=== PATIENT | female | born 1985 | race Caucasian/White ===

== ENCOUNTER 2024-05-25 23:28 | Outpatient (BNV) | payer MEDICAID, SELFPAY | END 2024-06-18 11:35 | PROVIDERS: Admitting Provider Clinical Nurse Specialist Psychiatric/Mental Health, Adult; Visit Provider Internal Medicine | DX: F31.9 Bipolar disorder, unspecified (principal); F19.90 Other psychoactive substance use, unspecified, uncomplicated | CPT/HCPCS: 93010 ==

== ENCOUNTER 2024-05-25 23:28 | Inpatient (IN) | payer OTHER, SELFPAY ==
--- OUTSIDE RECORDS SUMMARY | 2024-05-25 23:31 | XMS_ITS | Encounter Summary ---
Author Organization [employer] Address [address] [place] [address] [address] [place] [address] Care Team Providers Care Electron Microprobe Operator Name Role Phone Garry Graham MD Primary Care Provider Charis Alfonso MA Unavailable Unavailab Deborah Montenegro NP Unavailable [phone] Kristi Saxena MA Unavailable Unava ilable Reason for Visit * Reason Comments CHW - Outreach CHW outreach: pap f/ u booked for 07/03/24. Encounter Details Date Type Department Care Team (Late st Contact Info) Description 05/23/2024 Patient Outreach [facility] Case Management [address] [place] [phone] César Quinonez CHW CHW - Outreach (CHW outreach: pap f/u booked for 07/03/24.) Social History Tobacco Use Types Packs/Day Years Used Date Smoking Tobacco: Former Cigarettes Smokeless Tobacco: Former Alcohol Answer Date Recorded How often do you have a drink containing alcohol ? 0 05/23/2024 How many drinks containing a lcohol do you have on a typical day when you are drinking? 0 05/23/2024 How often do you have six or more drinks on one occasion? 0 05/23/2024 Depression Answer Date Recorded Patient Health Questionnaire-9 Score 16 05/23/2024 Patient Health Questionnaire-9 Score 16 05/23/2024 Last PHQ-9: Questionnaire Data Not on file 0 05/23/2024 Housing Stability Answer Date Recorded What is your housing situation today? I have gabrielle gardner 05/23/[address] you li ve. Do you have problems with any of the following? Not on file 05/23/2024 Food Insecurity Answer Date Recorded Within the past 12 months, y ou worried that your food would run out before you got money to buy more: Often true 05/23/2024 Within the past 12 months,th e food you bought just didn't last and you didn't have enough money to get more: Often true 03/2025 Transportation Answer Date Recorded In the past 12 months, has l ack of transportation kept you from medical appts, meetings, work or from getting things needed for daily living? No 05/23/2024 Utilities Answer Date Recorded In the past 12 months, has t he electric, gas, oil or water company threatened to shut off services in your home? No 05/23/2024 Depression Answer Date Recorded Patient Health Questionnaire-2 Score 6 05/23/2024 Internet Access Answer Date Recorded Internet Access Q1 Yes 05/23/2024 Internet Access Q2 Not on file 05/23/2024 Comments Unknown Sex and Gender Information Value Date Recorded Sex Assigned at Female 10/03/2023 10:22 AM EDT Legal Sex Female 6:50 PM EDT Gender Identity Female 07/22/2023 6:50 PM EDT Sexual Orientation Straight 07/22/2023 6: 50 PM EDT documented as of this encounter Progress Notes * IAN Hayes - 05/23/2024 1:27 PM EST CHW outreach: pap f/u booked for 07/03/24. documented in this encounter Plan of Treatment Upcoming Encounters Date Type Department Care Team (Late st Contact Info) Description 07/03/2024 8:40 AM EDT Procedure Visit [address] [phone] Cheryl Weaver WHNP [address] [place] [phone] documented as of this encounter Visit Diagnoses Not on filedocumented in this encounter Additional Health Concerns Assessment Noted Time PHQ-9 Depression Total Score: 16 025 8:14 AM EST documented as of this encounter Care Teams Electron Microprobe Operator Relationship Specialty Start Date End Date Garry Graham MD [address] [place] [phone] PCP - General Family Medicine 09/22/17 Charis Alfonso MA 2nd Contact Psychiatry 12/06/23 Deborah Lagos NP Nurse Practitioner Psychiatry 12/06/23 Kristi Saxena MA 3rd Contact Psychiatry 12/06/23 documented as of this encounter
--- OUTSIDE RECORDS SUMMARY | 2024-05-25 23:31 | XMS_ITS | Encounter Summary ---
Author Organization [employer] Address [address] [place] [address] [address] [place] [address] Care Team Providers Care Information Resource Consultant Name Role Phone Garry Graham MD Primary Care Provider Charis Alfonso MA Unavailable Unavailab Deborah Montenegro NP Unavailable [phone] Kristi Saxena MA Unavailable Unava ilable Encounter Details Date Type Department Care Team (Late st Contact Info) Description 05/23/2024 3:00 PM [facility] [place] [address] [place] [phone] Arleen Garcia CHW Community health education Social History Tobacco Use Types Packs/Day Years [...] of this encounter Progress Notes * IAN Salcido - 05/23/2024 3:00 PM EST Contacted pt to assist with SDOH needs, pt states a need for assistance to fill out SSI disability forms on noon. documented in this encounter Plan of Treatment Upcoming Encounters Date Type Department Care Team (Late st Contact Info) Description 07/03/2024 8:40 AM EDT Procedure Visit [address] [phone] Cheryl Weaver WHNP [address] [place] [phone] documented as of this encounter Visit Diagnoses Diagnosis Community health education Other specified counseling documented in this encounter Additional Health Concerns Assessment Noted Time PHQ-9 Depression Total Score: 16 025 8:14 AM EST documented as of this encounter Care Teams Information Resource Consultant Relationship Specialty Start Date End Date Grary Graham MD [address] [place] [phone] PCP - General Family Medicine 09/22/17 Charis Alfonso MA 2nd Contact Psychiatry 12/06/23 Deborah Lagos NP Nurse Practitioner Psychiatry 12/06/23 Kristi Saxena MA 3rd Contact Psychiatry 12/06/23 documented as of this encounter
--- OUTSIDE RECORDS SUMMARY | 2024-05-25 23:31 | XMS_ITS | Encounter Summary ---
Author Organization [employer] Address [address] [place] [address] [address] [place] [address] Care Team Providers Care Nutrition Worker Name Role Phone Garry Graham MD Primary Care Provider Charis Alfonso MA Unavailable Unavailab Deborah Montenegro NP Unavailable [phone] Kristi Saxena MA Unavailable Unava ilable Encounter Details Date Type Department Care Team (Late st Contact Info) Description 10/30/2023 Orders Only [facility] Case Management [address] [place] [phone] Kieran Gilliam CHW Social History Tobacco Use Types Packs/Day Years Used Date Smoking Tobacco: Never Assessed Comments Unknown Sex and Gender Information Value Date Recorded Sex Assigned at Female 10/03/2023 10:22 AM EDT Legal Sex Female 6:50 PM EDT Gender Identity Female 07/22/2023 6:50 PM EDT Sexual Orientation Straight 07/22/2023 6: 50 PM EDT documented as of this encounter Plan of Treatment Upcoming Encounters Date Type Department Care Team (Late st Contact Info) Description 07/03/2024 8:40 AM EDT Procedure Visit [facility] Family Med [address] [place] [phone] Cheryl Weaver WHNP [address] [place] [phone] documented as of this encounter Procedures Procedure Name Priority Date/Time Associated Diagnosis Comments HM PAP/HPV Routine 08/16/2016 12:00 AM EDT documented in this encounter Results * HM PAP/HPV (08/16/2016 12:00 AM EDT) us Historical Provider HEALTH MAINTENANCE Final Result documented in this encounter Visit Diagnoses Not on filedocumented in this encounter Care Teams Nutrition Worker Relationship Specialty Start Date End Date Garry Graham MD [address] [place] [phone] PCP - General Family Medicine 09/22/17 Charis Alfonso MA 2nd Contact Psychiatry 12/06/23 Deborah Lagos NP Nurse Practitioner Psychiatry 12/06/23 Kristi Saxena MA 3rd Contact Psychiatry 12/06/23 documented as of this encounter
--- OUTSIDE RECORDS SUMMARY | 2024-05-25 23:31 | XMS_ITS | Encounter Summary ---
Author Organization [employer] Address [address] [place] [address] [address] [place] [address] Care Team Providers Care Core Layer Machine Operator Name Role Phone Garry Graham MD Primary Care Provider Charis Alfonso MA Unavailable Unavailab Deborah Montenegro NP Unavailable [phone] Kristi Saxena MA Unavailable Unava ilable Reason for Visit * Reason Onset Date Comments Med Refill 02/28/2024 Pt is requesting the Gabapentin. Encounter Details Date Type Department Care Team (Late st Contact Info) Description 02/28/[address] [phone] Garry Graham MD [address] [place] [phone] Med Refill (Pt is requesting the Gabapentin.) Social History Tobacco Use Types Packs/Day Years Used Date Smoking Tobacco: Never Assessed Comments Unknown Sex and Gender Information Value Date Recorded Sex Assigned at Female 10/03/2023 10:22 AM EDT Legal Sex Female 6:50 PM EDT Gender Identity Female 07/22/2023 6:50 PM EDT Sexual Orientation Straight 07/22/2023 6: 50 PM EDT documented as of this encounter Miscellaneous Notes * Telephone Encounter - Michael Cardona - 02/28/2024 3:38 PM EST Pt is requesting the Gabapentin. documented in this encounter Plan of Treatment Upcoming Encounters Date Type Department Care Team (Late st Contact Info) Description 07/03/2024 8:40 AM EDT Procedure Visit [address] [phone] Cheryl Weaver WHNP [address] [place] [phone] documented as of this encounter Visit Diagnoses Not on filedocumented in this encounter Care Teams Core Layer Machine Operator Relationship Specialty Start Date End Date Garry Graham MD [address] [place] [phone] PCP - General Family Medicine 09/22/17 Charis Alfonso MA 2nd Contact Psychiatry 12/06/23 Deborah Lagos NP Nurse Practitioner Psychiatry 12/06/23 Kristi Saxena MA 3rd Contact Psychiatry 12/06/23 documented as of this encounter
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
--- OUTSIDE RECORDS SUMMARY | 2024-05-25 23:31 | XMS_ITS | Encounter Summary ---
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 Negative Negative mg/dL LAB URINALYSIS - AUTOMATED METHOD 05/25/2024 6:41 PM [facility] Urobilinogen, Urine 0.2 0.2 - 1.0 mg/dL LAB URINALYSIS - AUTOMATED METHOD 05/25/2024 6:41 PM EST [facility] Bilirubin, Urine Negative Negative LAB URINALYSIS - AUTOMATED METHOD 05/25/2024 6:41 PM EST [facility] Blood, Urine Negative Negative LAB URINALYSIS - AUTOMATED METHOD 05/25/2024 6:41 PM [facility] Urine Urine specimen obtained by clean catch procedure / Unknown Non-blood Collection / Unknown 05/25/2024 6:34 PM EST 05/25/2024 6:35 PM EST us Jessi Hung DO LAB URINE ORDERABLES Wen l Result Performing Organization Address City/State/[facility] Co de Phone Number [facility] [address] [place] [address], [place] [phone] * POC , urine manually resulted (05/25/2024 5:43 PM EST) HCG, Ur POC Negative Negative POC hCG Int QC Pass? Yes Yes Urine Urine specimen obtained by clean catch procedure / Unknown 05/25/2024 5:43 PM EST Jessi Hung DO POINT OF CARE TEST ENTER/ EDIT ORDERABLES Final Result * CBC auto differential (05/25/2024 5:34 PM EST) WBC 6.4 4.8 - 10.8 K/[facility] LAB HEMETOLOGY METHOD 05/25/2024 6:03 PM EST [facility] RBC 4.50 3.80 - 4.80 M/mcL LAB HEMETOLOGY METHOD 05/25/2024 6:03 PM [facility] Hemoglobin 13.9 11.5 - 16.0 g/dL LAB HEMETOLOGY METHOD 05/25/2024 6:03 PM EST [facility] Hematocrit 42.7 35.0 - 47.0 % LAB HEMETOLOGY METHOD 05/25/2024 6:03 PM [facility] MCV 94.1 79.0 - 98.0 FL LAB HEMETOLOGY METHOD 05/25/2024 6:03 PM [facility] MCH 30.6 27.0 - 32.0 pcg LAB HEMETOLOGY METHOD 05/25/2024 6:03 PM [facility] MCHC 32.6 32.0 - 37.0 g/dL LAB HEMETOLOGY METHOD 05/25/2024 6:03 PM [facility] RDW 12.9 11.0 - 15.0 % LAB HEMETOLOGY METHOD 05/25/2024 6:03 PM [facility] Platelets 348 130 - 400 K/mcL LAB HEMETOLOGY METHOD 05/25/2024 6:03 PM [facility] MPV 10.1 7.0 - 11.0 FL LAB HEMETOLOGY METHOD 05/25/2024 6:03 PM [facility] NRBC 0.0 <1.0 % LAB HEMETOLOGY METHOD 05/25/2024 6:03 PM [facility] NRBC Absolute 0.00 <0.10 K/mcL LAB HEMETOLOGY METHOD 05/25/2024 6:03 PM [facility] Neutrophils Relative 68.8 % LAB HEMETOLOGY METHOD 05/25/2024 6:03 PM [facility] Lymphocytes Relative 23.7 % LAB HEMETOLOGY METHOD 05/25/2024 6:03 PM [facility] Monocytes Relative 4.4 % LAB HEMETOLOGY METHOD 05/25/2024 6:03 PM [facility] Eosinophils Relative 1.7 % LAB HEMETOLOGY METHOD 05/25/2024 6:03 PM [facility] Basophils Relative 1.1 % LAB HEMETOLOGY METHOD 05/25/2024 6:03 PM EST [facility] Immature Granulocytes Relative 0.3 % LAB HEMETOLOGY METHOD 05/25/2024 6:03 PM [facility] Neutrophils Absolute 4.39 1.50 - 7.00 K/mcL LAB HEMETOLOGY METHOD 05/25/2024 6:03 PM [facility] Lymphocytes Absolute 1.51 1.00 - 5.00 K/mcL LAB HEMETOLOGY METHOD 05/25/2024 6:03 PM [facility] Monocytes Absolute 0.28 0.20 - 1.00 K/mcL LAB HEMETOLOGY METHOD 05/25/2024 6:03 PM [facility] Eosinophils Absolute 0.11 0.00 - 0.50 K/mcL LAB HEMETOLOGY METHOD 05/25/2024 6:03 PM [facility] Basophils Absolute 0.07 0.00 - 0.20 K/mcL LAB HEMETOLOGY METHOD 05/25/2024 6:03 PM [facility] Immature Granulocytes Absolute 0.02 0.00 - 0.03 K/mcL LAB HEMETOLOGY METHOD 05/25/2024 6:03 PM [facility] Blood Venous blood specimen / Unknown Venipuncture / Unknown 05/25/2024 5:34 PM EST 05/25/2024 5:48 PM EST us Jessi Hung DO LAB BLOOD ORDERABLES Wen l Result [facility] [address] [place] [address], * Salicylate level (05/25/2024 5:34 PM EST) Salicylate Level 2.1 2.0 - 29.0 mg/dL LAB CHEMISTRY METHOD 05/25/2024 6:14 PM EST [facility] Blood Venous blood specimen / Unknown Venipuncture / Unknown 05/25/2024 5:34 PM EST 05/25/2024 5:48 PM EST us Jessi Hung LAB BLOOD ORDERABLES Wen l Result Performing Organization Address City/[facility]/ZIP Co de Phone Number [facility] [address] [place] [address], [place] [phone] * (ABNORMAL) Acetaminophen level (05/25/2024 5:34 PM EST) Acetaminophen Level <2.0(L) 10.0 - 30.0 mcg/mL LAB CHEMISTRY METHOD 05/25/2024 6:16 PM EST [facility] Blood Venous blood specimen / Unknown Venipuncture / Unknown 05/25/2024 5:34 PM EST 05/25/2024 5:48 PM EST Jessi Hung LAB BLOOD ORDERABLES Wen l Result Performing Organization Address [facility]/ZIP Co de Phone Number [facility] [address] [place] [address], [place] [phone] * Ethanol (05/25/2024 5:34 PM EST) Ethanol Level 5 0 - 10 mg/dL LAB CHEMISTRY METHOD 05/25/2024 6:14 PM EST [facility] Blood Venous blood specimen / Unknown Venipuncture / Unknown 05/25/2024 5:34 PM EST 05/25/2024 5:48 PM EST Jessi Hung LAB BLOOD ORDERABLES Wen l Result Performing Organization Address City/[facility]/ZIP Co de Phone Number [facility] [address] [place] [address], [place] [phone] * (ABNORMAL) Comprehensive metabolic panel (05/25/2024 5:34 PM EST) Sodium 136 133 - 145 mmol/L LAB CHEMISTRY METHOD 05/25/2024 6:16 PM [facility] Potassium 4.3 3.5 - 5.5 mmol/L LAB CHEMISTRY METHOD 05/25/2024 6:16 PM [facility] Chloride 108 96 - 110 mmol/L LAB CHEMISTRY METHOD 05/25/2024 6:16 PM [facility] CO2 26 21 - 32 mmol/L LAB CHEMISTRY METHOD 05/25/2024 6:16 PM [facility] Anion Gap 2(L) 3 - 11 LAB CHEMISTRY METHOD 05/25/2024 6:16 PM [facility] Glucose 105(H) 70 - 100 mg/dL LAB CHEMISTRY METHOD 05/25/2024 6:16 PM [facility] BUN 7 5 - 25 mg/dL LAB CHEMISTRY METHOD 05/25/2024 6:16 PM [facility] Creatinine 0.70 0.50 - 1.10 mg/dL LAB CHEMISTRY METHOD 05/25/2024 6:16 PM [facility] eGFR 113 >=60 mL/min/1. 73m2 LAB CHEMISTRY METHOD 05/25/2024 6:16 PM [facility] Comment:Calculation based on the??Chronic Kidney Disease Epidemiology Collaboration (CKD-EPI) equation refit??without adjustment for race. BUN/Creatinine Ratio 10.0 LAB CHEMISTRY METHOD 05/25/2024 6:16 PM [facility] Calcium 9.7 8.5 - 10.5 mg/dL LAB CHEMISTRY METHOD 05/25/2024 6:16 PM [facility] AST (SGOT) 15 10 - 42 unit/L LAB CHEMISTRY METHOD 05/25/2024 6:16 PM [facility] ALT (SGPT) 13 10 - 60 unit/L LAB CHEMISTRY METHOD 05/25/2024 6:16 PM EST [facility] Alkaline Phosphatase 69 42 - 121 unit/L LAB CHEMISTRY METHOD 05/25/2024 6:16 PM EST [facility] Total Protein 7.7 6.0 - 8.0 g/dL LAB CHEMISTRY METHOD 05/25/2024 6:16 PM [facility] Albumin 4.3 3.2 - 5.0 g/dL LAB CHEMISTRY METHOD 05/25/2024 6:16 PM EST [facility] Total Bilirubin 0.4 0.0 - 1.4 mg/dL LAB CHEMISTRY METHOD 05/25/2024 6:16 PM EST [facility] Blood Venous blood specimen / Unknown Venipuncture / Unknown 05/25/2024 5:34 PM EST 05/25/2024 5:48 PM EST us Jessi Hung DO LAB BLOOD ORDERABLES Wen l Result Performing Organization Address [facility]/ZIP Co de Phone Number [facility] [address] [place] [address], [place] [phone] * (ABNORMAL) Methadone, urine (05/25/2024 5:33 PM EST) [facility] Methadone Screen, Urine Positive (A) Negative LAB CHEMISTRY METHOD 05/25/2024 6:15 PM EST [facility] Comment: Assay cutoff 300 ng/mL Semi-quantitative assay for screening purposes only. Unconfirmed screening result should not be used for non-medical purposes. *ALTERNATE METHOD CONFIRMATION DONE UPON REQUEST ONLY* Urine Urine specimen obtained by clean catch procedure / Unknown Non-blood Collection / Unknown 05/25/2024 5:33 PM EST 05/25/2024 5:48 PM EST Jessi Vikas Carlo Hung DO LAB URINE ORDERABLES Wen l Result Performing Organization Address [facility]/ZIP Co de Phone Number [facility] [address] [place] [address], [place] [phone] * Phencyclidine, urine (05/25/2024 5:33 PM EST) PCP Scrn, Ur Negative Negative LAB CHEMISTRY METHOD 05/25/2024 6:15 PM EST [facility] Comment: Assay cutoff 25 ng/mL Semi-quantitative assay for screening purposes only. Unconfirmed screening result should not be used for non-medical purposes. *ALTERNATE METHOD CONFIRMATION DONE UPON REQUEST ONLY* Urine Urine specimen obtained by clean catch procedure / Unknown Non-blood Collection / Unknown 05/25/2024 5:33 PM EST 05/25/2024 5:48 PM EST Jessi Algisys Carlo Loudeye LAB URINE ORDERABLES Wen l Result Performing Organization Address [facility]/ZIP Co de Phone Number [facility] [address] [place] [address], [place] [phone] * Buprenorphine screen, urine (05/25/2024 5:33 PM EST) Pathologist [facility] Buprenorphine Screen Urine Negative Negative LAB CHEMISTRY METHOD 05/25/2024 6:15 PM EST [facility] Urine Urine specimen obtained by clean catch procedure / Unknown Non-blood Collection / Unknown 05/25/2024 5:33 PM EST 05/25/2024 5:48 PM EST Narrative [facility] - 05/25/2024 6:15 PM EST Assay cutoff 5 ng/mL Semi-quantitative assay for screening purposes only. Unconfirmed screening result should not be used for non-medical purposes. *ALTERNATE METHOD CONFIRMATION DONE UPON REQUEST ONLY* [place] Trevor Carlo [employer] LAB URINE ORDERABLES Wen l Result Performing Organization Address City/[facility]/ZIP Co de Phone Number [facility] [address] [place] [address], [place] [phone] * (ABNORMAL) Drug abuse screen 8a panel, urine (05/25/2024 5:33 PM EST) Amphetamine Screen, Ur Negative Negative LAB CHEMISTRY METHOD 5 6:24 PM [facility] Comment:Certain OTC medicati ons containing ephedrine, phenylephrine, pseudoephedrine and phenylpropanolamine can cause false positive results. Barbiturate Screen, Ur Negative Negative LAB CHEMISTRY METHOD 5 6:24 PM [facility] Benzodiazepine Screen, Ur Negative Negative LAB CHEMISTRY METHOD 5 6:24 PM [facility] Cocaine Screen, Ur Positive(A ) Negative LAB CHEMISTRY METHOD 5 6:24 PM [facility] Opiate Screen, Ur Negative Negative LAB CHEMISTRY METHOD 5 6:24 PM [facility] Cannabinoid (THC) Screen, Ur Negative Negative LAB CHEMISTRY METHOD 5 6:24 PM [facility] Comment:Specimens from patie nts taking pantoprazole sodium (Protonix) have been shown to produce false positive results. Oxycodone Screen, Ur Negative Negative LAB CHEMISTRY METHOD 5 6:24 PM [facility] Fentanyl, Ur Positive(A ) Negative LAB CHEMISTRY METHOD 5 6:24 PM [facility] Urine Urine specimen obtained by clean catch procedure / Unknown Non-blood Collection / Unknown 05/25/2024 5:33 PM EST 05/25/2024 5:48 PM EST [facility] - 05/25/2024 6:24 PM EST Assay cutoffs: Amphetamines ? 1000 ng/mL Barbiturates ?200 ng/mL Benzodiazepines ?? 200 ng/mL Cocaine ? 300 ng/mL Fentanyl ?1 ng/mL Opiates ? 300 ng/mL Oxycodone ? 100 ng/mL THC ?50 ng/mL Semi-quantitative assay for screening purposes only. Unconfirmed screening result should not be used for non-medical purposes. *ALTERNATE METHOD CONFIRMATION DONE UPON REQUEST ONLY* Jessi Hung DO LAB URINE ORDERABLES Wen hayder Result [facility] [address] [place] [address], documented in this encounter Visit Diagnoses Diagnosis Bipolar affective disorder, remission status unspecified (CMS/HCC)- Primary documented in this encounter Administered Medications Active Administered Medications - up to 3 most recent administrations Medication Order MAR Action Action Date Dose Rate Site clonazePAM (KlonoPIN) tablet 1 mg 1 mg, oral, 3 times daily, First dose on Tue05/25/24 at 2100, HAZARDOUS Drug Precautions - Low Risk (Category A/NIOSH Group 3) Reproductive Risk Only: - Single pair of ASTM standard [id number] certified chemotherapy gloves - Eye protection (goggles or face shield) required only with a potential for facial contact (i.e. concern for spitting or vomiting of the dose during or after administration) - Staff at reproductive risk (actively trying to conceive, or may be become , and ): chemo certified gown and an N95 respirator required when crushing meds (crushing of tabs allowed only in closed pouches) or opening of capsules only for allowable dosage forms Given 05/25/2024 8:09 PM EST 1 mg doxycycline (MONODOX) capsule 100 mg 100 mg, oral, Every 12 hours scheduled, First dose on Tue05/25/24 at 2100, For 7 days, Take with at least 8 ounces (large glass) of water, do not lie down for 30 minutes after. Administer 2 hours before or after multivitamins, antacids, or other products containing polyvalent cations (i.e., calcium, iron, magnesium, selenium, zinc)., Indication: Skin/Soft Tissue Given 05/25/2024 8:10 PM EST 100 mg methadone (DOLOPHINE) tablet 2.5 mg 2.5 mg, oral, Daily, First dose on Tue05/25/24 at 1938 Given 05/25/2024 8:29 PM EST 2.5 mg methadone (DOLOPHINE) tablet 30 mg 30 mg, oral, Daily, First dose on Tue05/25/24 at 1938 Given 05/25/2024 8:28 PM EST 30 mg methadone (METHADOSE) dispersible tablet 120 mg 120 mg, oral, Daily, First dose on Tue05/25/24 at 1938, Disperse total dose in ~120 mL of water, orange juice, or other acidic fruit beverage prior to administration; if insoluble excipients remain and do not entirely dissolve, add a small amount of liquid to cup and administer remaining mixture. Do not chew or swallow tablet before dispersing in liquid. Given 05/25/2024 8:26 PM EST 120 mg QUEtiapine (SEROquel) tablet 300 mg 300 mg, oral, Nightly, First dose on Tue05/25/24 at 2100 Given 05/25/2024 8:10 PM EST 300 mg documented in this encounter Discontinued Medications Medication Sig Discontinue Reason Start Date End Da te gabapentin (NEURONTIN) 800 mg tablet Take 1 tablet (800 mg total) by mouth at bedtime. 05/25/2024 doxycycline (VIBRAMYCIN) 100 mg capsule Take 1 capsule (100 mg total) by mouth 2 (two) times a day for 7 days. Take with at least 8 ounces (large glass) of water, do not lie down for 30 minutes after 05/25/2024 05/25/2024 documented as of this encounter Historical Medications * This list may reflect changes made after this encounter. topiramate (TOPAMAX) 200 mg tablet Take 1 tablet (200 mg total) by mouth 1 (one) time each day. QUEtiapine (SEROquel) 300 mg tablet Take 1 tablet (300 mg total) by mouth at bedtime. venlafaxine XR (EFFEXOR-XR) 150 mg 24 hr capsule Take 1 capsule (150 mg total) by mouth 1 (one) time each day. Do not crush or chew. gabapentin (NEURONTIN) 600 mg tablet Take 1 tablet (600 mg total) by mouth 3 (three) times a day. clonazePAM (KlonoPIN) 1 mg tablet Take 1 tablet (1 mg total) by mouth 3 (three) times a day. Max Daily Amount: 3 mg gabapentin (NEURONTIN) 800 mg tablet Take 1 tablet (800 mg total) by mouth at bedtime. 05/25/2024 added in this encounter Active and Recently Administered Medications Times are shown in EST. Scheduled Medication Order 05/23/2024 05/24/2024 05/25/2024 clonazePAM (KlonoPIN) tablet 1 mg 1 mg, oral, 3 times daily, First dose on Tue05/25/24 at 2100, HAZARDOUS Drug Precautions - Low Risk (Category A/NIOSH Group 3) Reproductive Risk Only: - Single pair of ASTM standard [id number] certified chemotherapy gloves - Eye protection (goggles or face shield) required only with a potential for facial contact (i.e. concern for spitting or vomiting of the dose during or after administration) - Staff at reproductive risk (actively trying to conceive, or may be become , and ): chemo certified gown and an N95 respirator required when crushing meds (crushing of tabs allowed only in closed pouches) or opening of capsules only for allowable dosage forms 2008 (Given - Provid er: Uche Rios RN) doxycycline (MONODOX) capsule 100 mg 100 mg, oral, Every 12 hours scheduled, First dose on Tue05/25/24 at 2100, For 7 days, Take with at least 8 ounces (large glass) of water, do not lie down for 30 minutes after. Administer 2 hours before or after multivitamins, antacids, or other products containing polyvalent cations (i.e., calcium, iron, magnesium, selenium, zinc)., Indication: Skin/Soft Tissue 2009 (Given - Provid er: Uche Rios RN) gabapentin (NEURONTIN) capsule 600 mg 600 mg, oral, Every 8 hours scheduled, First dose on Tue05/25/24 at 2200 2130 (Not Given - Pr ovider: Uche Rios RN - Reason: Other - Comment: giving with all night meds an hour early) methadone (DOLOPHINE) tablet 2.5 mg(Linked Group 1) 2.5 mg, oral, Daily, First dose on Tue05/25/24 at 1938 2028 (Given - Provid er: Uche Rios RN - Comment: wasting 1/2 tab) methadone (DOLOPHINE) tablet 30 mg(Linked Group 1) 30 mg, oral, Daily, First dose on Tue05/25/24 at 1938 2027 (Given - Provid er: Uche Rios RN) methadone (METHADOSE) dispersible tablet 120 mg(Linked Group 1) 120 mg, oral, Daily, First dose on Tue05/25/24 at 1938, Disperse total dose in ~120 mL of water, orange juice, or other acidic fruit beverage prior to administration; if insoluble excipients remain and do not entirely dissolve, add a small amount of liquid to cup and administer remaining mixture. Do not chew or swallow tablet before dispersing in liquid. 2025 (Given - Provid er: Uche Rios RN) QUEtiapine (SEROquel) tablet 300 mg 300 mg, oral, Nightly, First dose on Tue05/25/24 at 2100 2009 (Given - Provid er: Uche Rios RN) topiramate (TOPAMAX) tablet 200 mg 200 mg, oral, Daily, First dose on Tue05/26/24 at 0900, HAZARDOUS Drug Precautions - Low Risk (Category A/NIOSH Group 3) Reproductive Risk Only: - Do NOT split, crush, or open dosage units - Single pair of ASTM standard D6978 certified chemotherapy gloves - Eye protection (goggles or face shield) required only with a potential for facial contact (i.e. concern for spitting or vomiting of the dose during or after administration) venlafaxine XR (EFFEXOR-XR) 24 hr capsule 150 mg 150 mg, oral, Daily, First dose on Tue05/26/24 at 0900, Capsule may be swallowed whole, or may be opened and its contents sprinkled on applesauce if consumed immediately without chewing. Do not crush or chew. Linked Groups Order Group 1: methadone (METHADOSE) dispersible tablet 120 mgJump to med 120 mg, oral, Daily, First dose on Tue05/25/24 at 1938, Disperse total dose in ~120 mL of water, orange juice, or other acidic fruit beverage prior to administration; if insoluble excipients remain and do not entirely dissolve, add a small amount of liquid to cup and administer remaining mixture. Do not chew or swallow tablet before dispersing in liquid. And methadone (DOLOPHINE) tablet 30 mgJump to med 30 mg, oral, Daily, First dose on Tue05/25/24 at 1938 And methadone (DOLOPHINE) tablet 2.5 mgJump to med 2.5 mg, oral, Daily, First dose on Tue05/25/24 at 1938 documented in this encounter Orders Medications Ordered That Asa ht Not Have Been Administered Count Last Ordered Date First Ordered Date gabapentin (NEURONTIN) capsule 600 mg 1 methadone (DOLOPHINE) tablet 152.5 mg 1 topiramate (TOPAMAX) tablet 200 mg 1 2024 venlafaxine XR (EFFEXOR-XR) 24 hr capsule 150 mg 1 05/25/2024 Diet Count Last Ordered Date First Orde red Date ADULT DIET 1 05/25/2024 Nursing Count Last Ordered Date First Orde red Date VITAL SIGNS 1 05/25/2024 Consult Count Last Ordered Date First Orde red Date IP CONSULT TO CLICKER OPERATOR 1 05/25/2024 Precaution Count Last Ordered Date First Orde red Date SUICIDE PRECAUTIONS 1 05/25/2024 Privilege Level Count Last Ordered Date First O rdered Date PATIENT ELECTRICAL JOURNEYMAN 1 05/25/2024 documented in this encounter Care Teams Component Overhaul Operator Relationship Specialty Start Date End Date Physician, No Pcp PCP - General 05/25/24 documented as of this encounter
--- OUTSIDE RECORDS SUMMARY | 2024-05-25 23:31 | XMS_ITS | Encounter Summary ---
Author Organization [employer] Address [address] [place] [address] [address] [place] [address] Care Team Providers Care Joint Maker Machine Name Role Phone Garry Graham MD Primary Care Provider Charis Alfonso MA Unavailable Unavailab Deborah Montenegro NP Unavailable [phone] Kristi Saxena MA Unavailable Unava ilable Reason for Visit * Reason Comments Cervical Cancer Screening [facility] outreach: pap f/u overdue - UTR /VM full Encounter Details Date Type Department Care Team (Late st Contact Info) Description 05/18/2024 Patient Outreach [facility] Case Management [address] [place] [phone] César Quinonez CHW Cervical Cancer Screening ([facility] outreach: pap f/u overdue - UTR /VM full) Social History Tobacco Use Types Packs/Day Years Used Date Smoking Tobacco: Never Assessed Comments Unknown Sex and Gender Information Value Date Recorded Sex Assigned at Female 10/03/2023 10:22 AM EDT Legal Sex Female 6:50 PM EDT Gender Identity Female 07/22/2023 6:50 PM EDT Sexual Orientation Straight 07/22/2023 6: 50 PM EDT documented as of this encounter Progress Notes * IAN Hayes - 05/18/2024 1:43 PM EST CHW outreach: pap f/u overdue - UTR /VM full. documented in this encounter Plan of Treatment Upcoming Encounters Date Type Department Care Team (Late st Contact Info) Description 07/03/2024 8:40 AM EDT Procedure Visit [address] [phone] Cheryl Weaver WHNP [address] [place] [phone] documented as of this encounter Visit Diagnoses Not on filedocumented in this encounter Care Teams Joint Maker Machine Relationship Specialty Start Date End Date Garry Graham MD [address] [place] [phone] PCP - General Family Medicine 09/22/17 Charis Alfonso MA 2nd Contact Psychiatry 12/06/23 Deborah Lagos NP Nurse Practitioner Psychiatry 12/06/23 Kristi Saxena MA 3rd Contact Psychiatry 12/06/23 documented as of this encounter
--- OUTSIDE RECORDS SUMMARY | 2024-05-25 23:31 | XMS_ITS | Clinical Summary ---
Author Organization [facility] Address [address] [place] [address] Phone Care Team Providers Care Glass Curvature Gauger Name Role Phone Physician, No Pcp Primary Care Provider Unavaila ble Allergies Active Allergy Reactions Criticality Noted Date Comments Lamotrigine 05/25/2024 Medications clonazePAM (KlonoPIN) 1 mg tablet Take 1 tablet (1 mg total) by mouth 3 (three) times a day. Max Daily Amount: 3 mg Active gabapentin (NEURONTIN) 600 mg tablet Take 1 tablet (600 mg total) by mouth 3 (three) times a day. Active venlafaxine XR (EFFEXOR-XR) 150 mg 24 hr capsule Take 1 capsule (150 mg total) by mouth 1 (one) time each day. Do not crush or chew. Active QUEtiapine (SEROquel) 300 mg tablet Take 1 tablet (300 mg total) by mouth at bedtime. Active topiramate (TOPAMAX) 200 mg tablet Take 1 tablet (200 mg total) by mouth 1 (one) time each day. Active doxycycline (VIBRAMYCIN) 100 mg capsule Take 1 capsule (100 mg total) by mouth 2 (two) times a day for 7 days. Take with at least 8 ounces (large glass) of water, do not lie down for 30 minutes after 14 capsule 5 06/01/19 25 Active gabapentin (NEURONTIN) 800 mg tablet Take 1 tablet (800 mg total) by mouth at bedtime. 05/25/19 25 Discontinued doxycycline (VIBRAMYCIN) 100 mg capsule Take 1 capsule (100 mg total) by mouth 2 (two) times a day for 7 days. Take with at least 8 ounces (large glass) of water, do not lie down for 30 minutes after 14 capsule 05/25/19 25 Discontinued Encounters Date Type Department Care Team Description 05/25/2024 5:01 PM EST - 05/25/2024 11:15 PM EST Emergency [facility] Emergency [address] [place] [address] AbhilashCesarlaura PereznyDO Bipolar affective disorder, remission status unspecified (CMS/HCC) (Primary Dx) Discharge Disposition: Another Health Care Institution Not Defined from Last 3 Months Social History Tobacco Use Types Packs/Day Years Used Date Smoking Tobacco: Never Assessed Comments Unknown Sex and Gender Information Value Date Recorded Sex Assigned at Not on file Legal Sex Female 1:39 PM EDT Gender Identity Not on file Sexual Orientation Not on file Last Filed Vital Signs Vital Sign Reading [...] Mass Index 25.06 05/25/2024 5:22 PM EST Plan of Treatment Health Maintenance Due Date Last Done Comments Cervical Cancer Screening: P ap Smear 2005 Hepatitis B Vaccines (3 of 3 - 19+ 3-dose series) 08/25/2023 06/30/2023, 05/08/2010 Depression Screening 11/11/2023 HIV Screening 11/11/2023 Hepatitis C Screening 11/11/2023 Social Influencers of Health Screening 11/11/2023 COVID-19 Vaccine (1 - 2023-2 5 season) 2023 Influenza Vaccine (#1) 2023 9, 03/02/2015, 05/08/2010 DTaP,Tdap,and Td Vaccines (4 - Td or Tdap) 01/13/2033 01/13/2023, 01/06/2023, 04/29/2010 Pneumococcal Vaccine: Pediatrics (0 to 5 Years) and At-Risk Patients (6 to 64 Years) Aged Out 04/29/2010 No longer eligible b ased on patient's age to complete this topic Hepatitis A Vaccines Aged Out 10/30/2018, 06/08/2012, 05/08/2010 No longer eligible based on patient's age to complete this topic MMR Vaccines Aged Out 06/30/2023, 05/27/2010 No longer eligible based on patient's age to complete this topic HIB Vaccines Aged Out No longer eligi ble based on patient's age to complete this topic HPV Vaccines Aged Out No longer eligi ble based on patient's age to complete this topic IPV Vaccines Aged Out No longer eligi ble based on patient's age to complete this topic Meningococcal ACWY Vaccine Aged Out N o longer eligible based on patient's age to complete this topic Meningococcal B Vacine Aged Out No lo nger eligible based on patient's age to complete this topic RSV Immunization Patients Under 20 months Aged Out No longer eligible b ased on patient's age to complete this topic Varicella Vaccines Aged Out No longer eligible based on patient's age to complete this topic Procedures Procedure Name Priority Date/Time Associated Diagnosis Comments MURRAY URINE CULTURE TUBE STAT 05/25/2024 6:34 PM EST URINALYSIS WITH REFLEX MICROSCOPIC AND CULTURE STAT 05/25/2024 6:34 PM EST URINALYSIS WITH REFLEX MICROSCOPIC AND CULTURE STAT 05/25/2024 6:34 PM EST ECG 12-LEAD STAT 05/25/2024 5:44 PM EST POC , URINE DIAGNOSTIC STAT 05/25/2024 5:43 PM EST CBC WITH AUTO DIFFERENTIAL STAT 05/25/2024 5:34 PM EST SALICYLATE LEVEL STAT 05/25/2024 5:34 PM EST ACETAMINOPHEN LEVEL STAT 05/25/2024 5 :34 PM EST ETHANOL STAT 05/25/2024 5:34 PM EST COMPREHENSIVE METABOLIC PANEL STAT 05/25/2024 5:34 PM EST CBC AND DIFFERENTIAL STAT 05/25/2024 5:34 PM EST METHADONE SCREEN, URINE STAT 05/25/2024 5:33 PM EST PHENCYCLIDINE, URINE STAT 05/25/2024 5:33 PM EST BUPRENORPHINE SCREEN, URINE STAT 05/25/2024 5:33 PM EST DRUG ABUSE SCREEN 8A PANEL, URINE STAT 05/25/2024 5:33 PM EST from Last 3 Months Results * Urinalysis with reflex microscopic and culture (05/25/2024 6:34 PM EST) Specific [place] Urine 1.006 1.003 - 1.030 LAB URINALYSIS - AUTOMATED METHOD 05/25/2024 6:41 PM [facility] pH, Urine 6.5 5.0 - 8.0 pH LAB URINALYSIS - AUTOMATED METHOD 05/25/2024 6:41 PM [facility] Leukocytes, Urine Negative Negative LAB URINALYSIS - AUTOMATED METHOD 05/25/2024 6:41 PM [facility] Nitrite, Urine Negative Negative LAB URINALYSIS - AUTOMATED METHOD 05/25/2024 6:41 PM [facility] Protein, Urine Negative <=Trace mg/dL LAB URINALYSIS - AUTOMATED METHOD 05/25/2024 6:41 PM [facility] Glucose, Urine Negative Negative mg/dL LAB URINALYSIS - AUTOMATED METHOD 05/25/2024 6:41 PM [facility] Ketones, Urine Negative Negative mg/dL LAB URINALYSIS - AUTOMATED METHOD 05/25/2024 6:41 PM [facility] Urobilinogen, Urine 0.2 0.2 - 1.0 mg/dL LAB URINALYSIS - AUTOMATED METHOD 05/25/2024 6:[address] [facility] Bilirubin, Urine Negative Negative LAB URINALYSIS - AUTOMATED METHOD 05/25/2024 6:[address] [facility] Blood, Urine Negative Negative LAB URINALYSIS - AUTOMATED METHOD 05/25/2024 6:[address] [facility] Urine Urine specimen obtained by clean catch procedure / Unknown Non-blood Collection / Unknown 05/25/2024 6:34 PM EST 05/25/2024 6:35 PM EST us Jessi Hung DO LAB URINE ORDERABLES Wen l Result Performing Organization Address City/[facility]/ZIP Co de Phone Number [facility] [address] [place] [address], [place] [phone] * Murray urine culture tube (05/25/2024 6:34 PM EST) Extra Tube Hold for add-ons. 05/25/2024 8:[address] [facility] Comment:Auto resulted. Urine Urine specimen obtained by clean catch procedure / Unknown Non-blood Collection / Unknown 05/25/2024 6:34 PM EST 05/25/2024 6:35 PM EST us Jessi Hung DO LAB URINE ORDERABLES Wen l Result [facility] [address] [place] [address], [place] [phone] * POC , urine manually resulted (05/25/2024 5:43 PM EST) HCG, Ur POC Negative Negative POC hCG Int QC Pass? Yes Yes Urine Urine specimen obtained by clean catch procedure / Unknown 05/25/2024 5:43 PM EST us Jessi Hung DO POINT OF CARE TEST ENTER/ EDIT ORDERABLES Final Result * CBC auto differential (05/25/2024 5:34 PM EST) [facility] WBC 6.4 4.8 - 10.8 K/mcL LAB HEMETOLOGY METHOD 05/25/2024 6:03 PM [facility] RBC 4.50 3.80 - 4.80 M/mcL LAB HEMETOLOGY METHOD 05/25/2024 6:03 PM [facility] Hemoglobin 13.9 11.5 - 16.0 g/dL LAB HEMETOLOGY METHOD 05/25/2024 6:03 PM [facility] Hematocrit 42.7 35.0 - 47.0 % LAB HEMETOLOGY METHOD 05/25/2024 6:03 PM [facility] MCV 94.1 79.0 - 98.0 FL LAB HEMETOLOGY METHOD 05/25/2024 6:03 PM [facility] MCH 30.6 27.0 - 32.0 pcg LAB HEMETOLOGY METHOD 05/25/2024 6:03 PM [facility] MCHC 32.6 32.0 - 37.0 g/dL LAB HEMETOLOGY METHOD 05/25/2024 6:03 PM [facility] RDW 12.9 11.0 - 15.0 % LAB HEMETOLOGY METHOD 05/25/2024 6:03 PM [facility] Platelets 348 130 - 400 K/mcL LAB HEMETOLOGY METHOD 05/25/2024 6:03 PM [facility] MPV 10.1 7.0 - 11.0 FL LAB HEMETOLOGY METHOD 05/25/2024 6:03 PM [facility] NRBC 0.0 <1.0 % LAB HEMETOLOGY METHOD 05/25/2024 6:03 PM [facility] NRBC Absolute 0.00 <0.10 K/mcL LAB HEMETOLOGY METHOD 05/25/2024 6:03 PM [facility] Neutrophils Relative 68.8 % LAB HEMETOLOGY METHOD 05/25/2024 6:03 PM [facility] Lymphocytes Relative 23.7 % LAB HEMETOLOGY METHOD 05/25/2024 6:03 PM [facility] Monocytes Relative 4.4 % LAB HEMETOLOGY METHOD 05/25/2024 6:03 PM [facility] Eosinophils Relative 1.7 % LAB HEMETOLOGY METHOD 05/25/2024 6:03 PM [facility] Basophils Relative 1.1 % LAB HEMETOLOGY METHOD 05/25/2024 6:03 PM [facility] Immature Granulocytes Relative 0.3 % LAB HEMETOLOGY METHOD 05/25/2024 6:03 PM [facility] Neutrophils Absolute 4.39 1.50 - 7.00 K/mcL LAB HEMETOLOGY METHOD 05/25/2024 6:03 PM [facility] Lymphocytes Absolute 1.51 1.00 - 5.00 K/mcL LAB HEMETOLOGY METHOD 05/25/2024 6:03 PM [facility] Monocytes Absolute 0.28 0.20 - 1.00 K/mcL LAB HEMETOLOGY METHOD 05/25/2024 6:03 PM [facility] Eosinophils Absolute 0.11 0.00 - 0.50 K/mcL LAB HEMETOLOGY METHOD 05/25/2024 6:03 PM [facility] Basophils Absolute 0.07 0.00 - 0.20 K/mcL LAB HEMETOLOGY METHOD 05/25/2024 6:03 PM [facility] Immature Granulocytes Absolute 0.02 0.00 - 0.03 K/mcL LAB HEMETOLOGY METHOD 05/25/2024 6:03 PM [facility] Blood Venous blood specimen / Unknown Venipuncture / Unknown 05/25/2024 5:34 PM EST 05/25/2024 5:48 PM EST Jessi Hung LAB BLOOD ORDERABLES Wen l Result Performing Organization Address [facility]/ZIP Co de Phone Number [facility] [address] [place] [address], [place] [phone] * Ethanol (05/25/2024 5:34 PM EST) Ethanol Level 5 0 - 10 mg/dL LAB CHEMISTRY METHOD 05/25/2024 6:[address] [facility] Blood Venous blood specimen / Unknown Venipuncture / Unknown 05/25/2024 5:34 PM EST 05/25/2024 5:48 PM EST Jessi Hung LAB BLOOD ORDERABLES Wen l Result Performing Organization Address [facility] Co de Phone Number [facility] [address] [place] [address], [place] [phone] * (ABNORMAL) Acetaminophen level (05/25/2024 5:34 PM EST) Acetaminophen Level <2.0(L) 10.0 - 30.0 mcg/mL LAB CHEMISTRY METHOD 05/25/2024 6:[address] [facility] Blood Venous blood specimen / Unknown Venipuncture / Unknown 05/25/2024 5:34 PM EST 05/25/2024 5:48 PM EST Jessi Hung LAB BLOOD ORDERABLES Wen l Result Performing Organization Address City/[facility]/ZIP Co de Phone Number [facility] [address] [place] [address], [place] [phone] * Salicylate level (05/25/2024 5:34 PM EST) Salicylate Level 2.1 2.0 - 29.0 mg/dL LAB CHEMISTRY METHOD 05/25/2024 6:14 PM [facility] Blood Venous blood specimen / Unknown Venipuncture / Unknown 05/25/2024 5:34 PM EST 05/25/2024 5:48 PM EST Jessi Hung DO LAB BLOOD ORDERABLES Wen l Result [facility] [address] [place] [address], [place] [phone] * (ABNORMAL) Comprehensive metabolic panel (05/25/2024 5:34 PM EST) [facility] Sodium 136 133 - 145 mmol/L LAB CHEMISTRY METHOD 05/25/2024 6:16 PM [facility] Potassium 4.3 3.5 - 5.5 mmol/L LAB CHEMISTRY METHOD 05/25/2024 6:16 PM [facility] Chloride 108 96 - 110 mmol/L LAB CHEMISTRY METHOD 05/25/2024 6:16 PM [facility] CO2 26 21 - 32 mmol/L LAB CHEMISTRY METHOD 05/25/2024 6:16 PM [facility] Anion Gap 2(L) 3 - 11 LAB CHEMISTRY METHOD 05/25/2024 6:16 PM [facility] Glucose 105(H) 70 - 100 mg/dL LAB CHEMISTRY METHOD 05/25/2024 6:16 PM [facility] BUN 7 5 - 25 mg/dL LAB CHEMISTRY METHOD 05/25/2024 6:16 PM [facility] Creatinine 0.70 0.50 - 1.10 mg/dL LAB CHEMISTRY METHOD 05/25/2024 6:16 PM [facility] eGFR 113 >=60 mL/min/1. 73m2 LAB CHEMISTRY METHOD 05/25/2024 6:16 PM [facility] Comment:Calculation based on the??Chronic Kidney Disease Epidemiology Collaboration (CKD-EPI) equation refit??without adjustment for race. BUN/Creatinine Ratio 10.0 LAB CHEMISTRY METHOD 05/25/2024 6:16 PM [facility] Calcium 9.7 8.5 - 10.5 mg/dL LAB CHEMISTRY METHOD 05/25/2024 6:16 PM [facility] AST (SGOT) 15 10 - 42 unit/L LAB CHEMISTRY METHOD 05/25/2024 6:16 PM [facility] ALT (SGPT) 13 10 - 60 unit/L LAB CHEMISTRY METHOD 05/25/2024 6:16 PM [facility] Alkaline Phosphatase 69 42 - 121 unit/L LAB CHEMISTRY METHOD 05/25/2024 6:16 PM [facility] Total Protein 7.7 6.0 - 8.0 g/dL LAB CHEMISTRY METHOD 05/25/2024 6:16 PM [facility] Albumin 4.3 3.2 - 5.0 g/dL LAB CHEMISTRY METHOD 05/25/2024 6:16 PM [facility] Total Bilirubin 0.4 0.0 - 1.4 mg/dL LAB CHEMISTRY METHOD 05/25/2024 6:16 PM [facility] Blood Venous blood specimen / Unknown Venipuncture / Unknown 05/25/2024 5:34 PM EST 05/25/2024 5:48 PM EST us Jessi Hung DO LAB BLOOD ORDERABLES Wen l Result [facility] [address] [place] [address], * (ABNORMAL) Drug abuse screen 8a panel, urine (05/25/2024 5:33 PM EST) Amphetamine Screen, Ur Negative Negative LAB CHEMISTRY METHOD 5 6:[address] [facility] Comment:Certain OTC medicati ons containing ephedrine, phenylephrine, pseudoephedrine and phenylpropanolamine can cause false positive results. Barbiturate Screen, Ur Negative Negative LAB CHEMISTRY METHOD 5 6:[address] [facility] Benzodiazepine Screen, Ur Negative Negative LAB CHEMISTRY METHOD 5 6:[address] [facility] Cocaine Screen, Ur Positive(A ) Negative LAB CHEMISTRY METHOD 5 6:24 PM [facility] Opiate Screen, Ur Negative Negative LAB CHEMISTRY METHOD 5 6:24 PM [facility] Cannabinoid (THC) Screen, Ur Negative Negative LAB CHEMISTRY METHOD 5 6:24 PM [facility] Comment:Specimens from patie nts taking pantoprazole sodium (Protonix) have been shown to produce false positive results. Oxycodone Screen, Ur Negative Negative LAB CHEMISTRY METHOD 5 6:24 PM [facility] Fentanyl, Ur Positive(A ) Negative LAB CHEMISTRY METHOD 5 6:24 PM [facility] Urine Urine specimen obtained by clean catch procedure / Unknown Non-blood Collection / Unknown 05/25/2024 5:33 PM EST 05/25/2024 5:48 PM EST [facility] - 05/25/2024 6:24 PM EST Assay cutoffs: Amphetamines ? 1000 ng/mL Barbiturates ?200 ng/mL Benzodiazepines ?? 200 ng/mL Cocaine ? 300 ng/mL Fentanyl ?1 ng/mL Opiates ? 300 ng/mL Oxycodone ? 100 ng/mL THC ?50 ng/mL Semi-quantitative assay for screening purposes only. Unconfirmed screening result should not be used for non-medical purposes. *ALTERNATE METHOD CONFIRMATION DONE UPON REQUEST ONLY* Jessi Hung LAB URINE ORDERABLES Wen l Result Performing Organization Address [facility] de Phone Number [facility] [address] [place] [address], * Buprenorphine screen, urine (05/25/2024 5:33 PM EST) [facility] Buprenorphine Screen Urine Negative Negative LAB CHEMISTRY METHOD 05/25/2024 6:[address] [facility] Urine Urine specimen obtained by clean catch procedure / Unknown Non-blood Collection / Unknown 05/25/2024 5:33 PM EST 05/25/2024 5:[address] [facility] - 05/25/2024 6:15 PM EST Assay cutoff 5 ng/mL Semi-quantitative assay for screening purposes only. Unconfirmed screening result should not be used for non-medical purposes. *ALTERNATE METHOD CONFIRMATION DONE UPON REQUEST ONLY* Jessi Hung LAB URINE ORDERABLES Wen l Result Performing Organization Address [facility] de Phone Number [facility] [address] [place] [address], [place] [phone] * (ABNORMAL) Methadone, urine (05/25/2024 5:33 PM EST) [facility] Methadone Screen, Urine Positive (A) Negative LAB CHEMISTRY METHOD 05/25/2024 6:[address] [facility] Comment: Assay cutoff 300 ng/mL Semi-quantitative assay for screening purposes only. Unconfirmed screening result should not be used for non-medical purposes. *ALTERNATE METHOD CONFIRMATION DONE UPON REQUEST ONLY* Urine Urine specimen obtained by clean catch procedure / Unknown Non-blood Collection / Unknown 05/25/2024 5:33 PM EST 05/25/2024 5:48 PM EST [facility] Vikas Matos Hung LAB URINE ORDERABLES Wen l Result Performing Organization Address [facility]/ZIP Co de Phone Number [facility] [address] [place] [address], [place] [phone] * Phencyclidine, urine (05/25/2024 5:33 PM EST) PCP Scrn, Ur Negative Negative LAB CHEMISTRY METHOD 05/25/2024 6:[address] [facility] Comment: Assay cutoff 25 ng/mL Semi-quantitative assay for screening purposes only. Unconfirmed screening result should not be used for non-medical purposes. *ALTERNATE METHOD CONFIRMATION DONE UPON REQUEST ONLY* Urine Urine specimen obtained by clean catch procedure / Unknown Non-blood Collection / Unknown 05/25/2024 5:33 PM EST 05/25/2024 5:48 PM EST [facility] Vikas Hung LAB URINE ORDERABLES Wen l Result Performing Organization Address [facility]/ZIP Co de Phone Number [facility] [address] [place] [address], [place] [phone] from Last 3 Months Insurance MEDICAID - [place] Care Teams Glass Curvature Gauger Relationship Specialty Start Date End Date Physician, No Pcp PCP - General 05/25/24
[2024-05-26 03:32] VITALS: BP 99/59; PULSE 76; TEMP 36.9; O2SAT 96
[2024-05-26 03:34] VITALS: BMI 25.1
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
[2024-05-26 08:04] VITALS: BP 115/72; PULSE 69; TEMP 36.8; O2SAT 100
--- NOTE | 2024-05-26 08:54 | HE.PHANOTE ---
Re methadone verification Last dose 152 mg given at [facility] at 05/25. Prior to this was given 152 mg @N on 05/22 with take home bottles for 05/23 and 05/24.
[2024-05-26] MEDS: methADONE HCl 20 MG/2 ML ORAL.CONC 152 MG PO (09:13)
[2024-05-26] MEDS: Venlafaxine HCl ER 75 MG CAP.ER.24H PO (09:15)
[2024-05-26] MEDS: clonazePAM 1 MG TABLET PO ×3 (09:15→17:30)
[2024-05-26] MEDS: Gabapentin 600 MG TABLET PO ×3 (09:15→17:29)
[2024-05-26] MEDS: Topiramate 100 MG TABLET 200 MG PO (09:15)
[2024-05-26 09:28] LABS: Estimated Average Glucose 97 mg/dL; Hemoglobin A1C 109.7046 umol/L
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
[2024-05-26 09:42] LABS: Cholesterol 189 mg/dL (<200); HDL Cholesterol 69 mg/dL (>40); LDL Cholesterol Calculated 84 mg/dL (<100); Magnesium 1.8 mg/dL (1.6-2.6); Triglycerides 184 mg/dL (<150)
[2024-05-26 09:53] LABS: Free T4 (Free Thyroxine) 0.95 ng/dL (0.71-1.85); Thyroid Stimulating Hormone 0.67 uIU/mL (0.32-4.0)
[2024-05-26 10:11] LABS: Folate 8.9 ng/mL (> or = 4.0); Vitamin B12 449 pg/mL (200-900)
[2024-05-26] MEDS: Nicotine Polacrilex 2 MG GUM 4 MG BUCCAL ×2 (11:55→17:58)
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
[2024-05-26] MEDS: Doxycycline Monohydrate 100 MG CAPSULE PO ×2 (15:07→20:57)
[2024-05-26] MEDS: Magnesium Hydrox/Alum Hydrox 30 ML ORAL.SUSP PO (17:57)
[2024-05-26 20:00] VITALS: BP 128/87; PULSE 82; TEMP 36.4; O2SAT 99
[2024-05-26] MEDS: traZODone HCL 50 MG TABLET PO (20:57)
[2024-05-26] MEDS: Gabapentin 400 MG CAPSULE 800 MG PO (20:57)
[2024-05-26] MEDS: hydrOXYzine HCL 25 MG TABLET PO (20:57)
[2024-05-26] MEDS: QUEtiapine Fumarate 200 MG TABLET PO (20:57)
[2024-05-27 02:40] LABS: CT PCR NOT DETECTED (Not Detect.); NG PCR NOT DETECTED (Not Detect.)
[2024-05-27] MEDS: methADONE HCl 20 MG/2 ML ORAL.CONC 152 MG PO (07:48)
[2024-05-27 08:00] VITALS: BP 138/84; PULSE 84; RESP 18; TEMP 36.9; O2SAT 98
[2024-05-27] MEDS: Topiramate 100 MG TABLET 200 MG PO (08:09)
[2024-05-27] MEDS: Venlafaxine HCl ER 75 MG CAP.ER.24H PO (08:09)
[2024-05-27] MEDS: Gabapentin 600 MG TABLET PO ×3 (08:10→17:05)
[2024-05-27] MEDS: Doxycycline Monohydrate 100 MG CAPSULE PO ×2 (08:10→20:46)
[2024-05-27] MEDS: clonazePAM 1 MG TABLET PO ×3 (08:10→17:05)
[2024-05-27] MEDS: Nicotine Polacrilex 2 MG GUM 4 MG BUCCAL ×4 (09:09→20:25)
--- NOTE | 2024-05-27 09:40 | P.PNPSI_ITS ---
Subjective Subjective Date of Service: 05/27/24 Reason For Visit: SI / Hallucinations Interim History: Letty has met with hospitalist, has initiated treatment for bacterial vaginosis and today asks that we begin a trial of Risperdal as it has worked for her by history and she reports she received a good review by the hospitalist for this medication. Medication Compliance: Yes Side effects from medications: No Attending Groups: Intermittent Review of Systems Acute medical concerns: No Review of Systems Review of Systems Initiated treatment for bacterial vaginosis Mental Status Exam Mental Status Exam Patient Appearance: Fatigued Patient Orientation: Person, Place, Time and Situation Level of Consciousness: Alert Patient Behavior: Talkative and Good Eye Contact Mood Description: Depressed Affect Description: Flat Patient Cognition Impaired: No Ability to Follow Directions: Good Speech Pattern: Spontaneous Speech Memory Description: Intact Hallucinations: Visual Delusions: Paranoid Ideation and Present Thought Process: Distracted and Rumination Thought Content: positive for Suicidal Ideation (denies today, feeling that she is getting on track with treatment) Depressive Symptoms: Thoughts of /Suicide (denies) Judgement: Fair Diagnostics Vital Signs (24Hr): Vital Signs - 24 hr 05/26/24 20:00 05/27/24 08:00 Temperature 97.6 F 98.4 F Pulse Rate 82 84 Respiratory Rate 18 Blood Pressure 128/87 138/84 Pulse Oximetry 99 98 Oxygen Delivery Method Room Air Room Air BMI result Body Mass Index 25.1 Labs Labs: Laboratory Results - last 48 hr 05/26/24 05/26/24 08:44 15:15 Estimat Average Glucose 97 Hemoglobin A1c % 5.0 Magnesium 1.8 Triglycerides 184 H Cholesterol 189 LDL Cholesterol, Calc 84 HDL Cholesterol 69 Vitamin B12 449 Folate 8.9 TSH 0.67 Free T4 0.95 Chlam trachomat DNA PCR NOT DETECTED N.gonorrhoeae DNA (PCR) NOT DETECTED Medications Medications Current Medications Acetaminophen (Acetaminophen 325 Mg Tablet) 650 mg PO Q6H PRN PRN Reason: Headache/Pain, Scale 1-10 Al Hydroxide/Mg Hydroxide (Magnesium Hydrox/Alum Hydrox 30 Ml Oral.Susp) 30 ml PO Q6H PRN PRN Reason: Heartburn/Nausea Last Admin: 05/26/24 17:57 Dose: 30 ml Clonazepam (Clonazepam 1 Mg Tablet) 1 mg PO 0900,1300,1800 [facility] Last Admin: 05/27/24 08:10 Dose: 1 mg Doxycycline Monohydrate (Doxycycline Monohydrate 100 Mg Capsule) 100 mg PO Q12H [facility] Stop: 05/30/24 21:01 Last Admin: 05/27/24 08:10 Dose: 100 mg Gabapentin (Gabapentin 600 Mg Tablet) 600 mg PO 0900,1300,1800 [facility] Last Admin: 05/27/24 08:10 Dose: 600 mg Gabapentin (Gabapentin 400 Mg Capsule) 800 mg PO BEDTIME [facility] Last Admin: 05/26/24 20:57 Dose: 800 mg Hydroxyzine HCl (Hydroxyzine Hcl 25 Mg Tablet) 25 mg PO Q6H PRN PRN Reason: mild anxiety Last Admin: 05/26/24 20:57 Dose: 25 mg Magnesium Hydroxide (Milk Of Magnesia 30 Ml Oral.Susp) 30 ml PO DAILY PRN PRN Reason: Constipation Methadone HCl (Methadone Hcl 20 Mg/2 Ml Oral.Conc) 152 mg PO DAILY@0800 [facility] Last Admin: 05/27/24 07:48 Dose: 152 mg Nicotine Polacrilex (Nicotine Polacrilex 2 Mg Gum) 4 mg BUCCAL Q2H PRN PRN Reason: Nicotine Cravings Last Admin: 05/27/24 09:09 Dose: 4 mg Quetiapine Fumarate (Quetiapine Fumarate 50 Mg Tablet) 50 mg PO TID PRN PRN Reason: severe anxiety Quetiapine Fumarate (Quetiapine Fumarate 200 Mg Tablet) 200 mg PO BEDTIME [facility] Last Admin: 05/26/24 20:57 Dose: 200 mg Topiramate (Topiramate 100 Mg Tablet) 200 mg PO DAILY [facility] Last Admin: 05/27/24 08:09 Dose: 200 mg Trazodone HCl (Trazodone Hcl 50 Mg Tablet) 50 mg PO BEDTIME MRX1 PRN PRN Reason: Insomnia Last Admin: 05/26/24 20:57 Dose: 50 mg Venlafaxine HCl (Venlafaxine Hcl Er 75 Mg Cap.Er.24h) 75 mg PO DAILY [facility] Last Admin: 05/27/24 08:09 Dose: 75 mg Allergies Allergies Allergy/AdvReac Type Severity Reaction Status Date / Time lamotrigine [From Lamictal] AdvReac Unknown Rash Verified 05/26/24 07:01 Assessment & Plan Assessment & Plan (1) Bipolar disorder with psychotic features: Status: Acute Code(s): F31.9 - Bipolar disorder, unspecified Assessment and Plan: 05/27/24: Risperdal 1 mg bid (2) Polysubstance use disorder: Status: Acute Code(s): F19.90 - Other psychoactive substance use, unspecified, uncomplicated Plan Pt is a 38-year-old female with a PMH significant for?opioid use disorder on methadone and bipolar disorder who is admitted to [facility] psychiatry unit for increasing manic episodes, insomnia and vague SI without plan. Medical consult for admission H&P. Mood disorder Plan as per Psychiatry Right buttock abscesses Abscesses open and scabbed over, surrounding area of erythema and warmth, but no fluctuance or induration noted Reports received 1 dose Of doxy at [facility] last night treat with doxycycline 100 mg b.i.d. x5 days Vaginal odor Some discharge few days ago, no pruritus Denies polyuria or dysuria Pt will self swab to test for BV, trichomoniasis, candidiasis, gonorrhea, and chlamydia Polysubstance use disorder Reports no IVDU for the past few months Continue methadone Plan as per Psychiatry, Addiction medicine Thank you for allowing us to participate in the care of this patient. Signing off at this time. Please re-consult if any acute complaints or issues arise. Reason for continued inpatient stay Substantial Risk for: rapid decompensation Time Spent With Patient Time: Total time managing care of this patient today ____ minutes.
[2024-05-27 10:51] LABS: Bacterial Vaginosis PCR POSITIVE (Negative); Candida Group PCR NOT DETECTED (Not Detect); Candida glab krusei PCR NOT DETECTED (Not Detect); Trichomonas vaginalis PCR NOT DETECTED (Not Detect)
[2024-05-27] MEDS: metroNIDAZOLE 500 MG TABLET PO (14:32)
[2024-05-27 19:40] VITALS: BP 146/70; PULSE 82; RESP 16; TEMP 37.1; O2SAT 98
[2024-05-27] MEDS: traZODone HCL 50 MG TABLET PO (20:46)
[2024-05-27] MEDS: Gabapentin 400 MG CAPSULE 800 MG PO (20:46)
[2024-05-27] MEDS: risperiDONE 1 MG TABLET PO (20:46)
[2024-05-27] MEDS: hydrOXYzine HCL 25 MG TABLET PO (20:46)
[2024-05-27] MEDS: QUEtiapine Fumarate 50 MG TABLET PO (20:46)
[2024-05-27] MEDS: QUEtiapine Fumarate 200 MG TABLET PO (20:46)
[2024-05-28] MEDS: methADONE HCl 20 MG/2 ML ORAL.CONC 152 MG PO (07:44)
[2024-05-28 08:00] VITALS: BP 126/71; PULSE 100; TEMP 37; O2SAT 95
--- NOTE | 2024-05-28 08:29 | HO.PSYCHPN ---
Subjective Subjective Date of Service: 05/28/24 Reason For Visit: SI / Hallucinations Subjective Notes: Conditional Voluntary Healthcare Proxy: No Guardianship: No Medical Problems Affecting Mental Status: No Interim History: States she is tolerating Risperdal without adverse event. Tolerating current antibiotic trial as well. Medication Compliance: Yes Side effects from medications: No Attending Groups: No Review of Systems Acute medical concerns: No Review of Systems Review of Systems antibiotic regime for current infections Mental Status Exam Mental Status Exam Patient Appearance: Fatigued Patient Orientation: Person, Place, Time and Situation Level of Consciousness: Alert Patient Behavior: Talkative and Good Eye Contact Mood Description: Depressed Affect Description: Flat Patient Cognition Impaired: No Ability to Follow Directions: Good Speech Pattern: Spontaneous Speech Memory Description: Intact Hallucinations: Visual Delusions: Paranoid Ideation and Present Thought Process: Distracted and Rumination Thought Content: positive for Suicidal Ideation (denies today, feeling that she is getting on track with treatment) Depressive Symptoms: Thoughts of /Suicide (denies) Judgement: Fair Diagnostics Vital Signs (24Hr): Vital Signs - 24 hr 05/27/24 19:40 Temperature 98.8 F Pulse Rate 82 Respiratory Rate 16 Blood Pressure 146/70 H Pulse Oximetry 98 Oxygen Delivery Method Room Air BMI result Body Mass Index 25.1 Labs Labs: Laboratory Results - last 48 hr 05/26/24 05/26/24 08:44 15:15 Estimat Average Glucose 97 Hemoglobin A1c % 5.0 Magnesium 1.8 Triglycerides 184 H Cholesterol 189 LDL Cholesterol, Calc 84 HDL Cholesterol 69 Vitamin B12 449 Folate 8.9 TSH 0.67 Free T4 0.95 Chlam trachomat DNA PCR NOT DETECTED N.gonorrhoeae DNA (PCR) NOT DETECTED T. vaginalis (PCR) NOT DETECTED Bact vaginosis (PCR) POSITIVE A C. krusei/glabrata (PCR) NOT DETECTED Nighat group (PCR) NOT DETECTED Medications Medications Current Medications Acetaminophen (Acetaminophen 325 Mg Tablet) 650 mg PO Q6H PRN PRN Reason: Headache/Pain, Scale 1-10 Al Hydroxide/Mg Hydroxide (Magnesium Hydrox/Alum Hydrox 30 Ml Oral.Susp) 30 ml PO Q6H PRN PRN Reason: Heartburn/Nausea Last Admin: 05/26/24 17:57 Dose: 30 ml Clonazepam (Clonazepam 1 Mg Tablet) 1 mg PO 0900,1300,1800 [facility] Last Admin: 05/27/24 17:05 Dose: 1 mg Doxycycline Monohydrate (Doxycycline Monohydrate 100 Mg Capsule) 100 mg PO Q12H [facility] Stop: 05/30/24 21:01 Last Admin: 05/27/24 20:46 Dose: 100 mg Gabapentin (Gabapentin 600 Mg Tablet) 600 mg PO 0900,1300,1800 [facility] Last Admin: 05/27/24 17:05 Dose: 600 mg Gabapentin (Gabapentin 400 Mg Capsule) 800 mg PO BEDTIME [facility] Last Admin: 05/27/24 20:46 Dose: 800 mg Hydroxyzine HCl (Hydroxyzine Hcl 25 Mg Tablet) 25 mg PO Q6H PRN PRN Reason: mild anxiety Last Admin: 05/27/24 20:46 Dose: 25 mg Magnesium Hydroxide (Milk Of Magnesia 30 Ml Oral.Susp) 30 ml PO DAILY PRN PRN Reason: Constipation Methadone HCl (Methadone Hcl 20 Mg/2 Ml Oral.Conc) 152 mg PO DAILY@0800 [facility] Last Admin: 05/28/24 07:44 Dose: 152 mg Metronidazole (Metronidazole 500 Mg Tablet) 500 mg PO Q12H [facility] Stop: 06/03/24 09:01 Nicotine Polacrilex (Nicotine Polacrilex 2 Mg Gum) 4 mg BUCCAL Q2H PRN PRN Reason: Nicotine Cravings Last Admin: 05/27/24 20:25 Dose: 4 mg Quetiapine Fumarate (Quetiapine Fumarate 50 Mg Tablet) 50 mg PO TID PRN PRN Reason: severe anxiety Last Admin: 05/27/24 20:46 Dose: 50 mg Quetiapine Fumarate (Quetiapine Fumarate 200 Mg Tablet) 200 mg PO BEDTIME [facility] Last Admin: 05/27/24 20:46 Dose: 200 mg Risperidone (Risperidone 1 Mg Tablet) 1 mg PO BID [facility] Last Admin: 05/27/24 20:46 Dose: 1 mg Topiramate (Topiramate 100 Mg Tablet) 200 mg PO DAILY [facility] Last Admin: 05/27/24 08:09 Dose: 200 mg Trazodone HCl (Trazodone Hcl 50 Mg Tablet) 50 mg PO BEDTIME MRX1 PRN PRN Reason: Insomnia Last Admin: 05/27/24 20:46 Dose: 50 mg Venlafaxine HCl (Venlafaxine Hcl Er 75 Mg Cap.Er.24h) 75 mg PO DAILY [facility] Last Admin: 05/27/24 08:09 Dose: 75 mg Allergies Allergies Allergy/AdvReac Type Severity Reaction Status Date / Time lamotrigine [From Lamictal] AdvReac Unknown Rash Verified 05/26/24 07:01 Assessment & Plan Assessment & Plan (1) Polysubstance use disorder: Status: Acute Code(s): F19.90 - Other psychoactive substance use, unspecified, uncomplicated (2) Bipolar disorder with psychotic features: Status: Acute Code(s): F31.9 - Bipolar disorder, unspecified Plan Admit, 15 minute checks Collateral contact Diagnostics as needed Re-start regime, ?pt may need another antipsychotic which was discussed Discharge planning 05/28: continue regime Reason for continued inpatient stay Substantial Risk for: rapid decompensation Time Spent With Patient Time: Total time managing care of this patient today ____ minutes.
[2024-05-28] MEDS: Gabapentin 600 MG TABLET PO ×3 (08:31→17:16)
[2024-05-28] MEDS: risperiDONE 1 MG TABLET PO ×2 (08:31→19:58)
[2024-05-28] MEDS: Topiramate 100 MG TABLET 200 MG PO (08:31)
[2024-05-28] MEDS: clonazePAM 1 MG TABLET PO ×3 (08:31→17:16)
[2024-05-28] MEDS: Doxycycline Monohydrate 100 MG CAPSULE PO ×2 (08:31→19:58)
[2024-05-28] MEDS: metroNIDAZOLE 500 MG TABLET PO ×2 (08:31→19:59)
[2024-05-28] MEDS: Venlafaxine HCl ER 75 MG CAP.ER.24H PO (08:31)
[2024-05-28] MEDS: Nicotine Polacrilex 2 MG GUM 4 MG BUCCAL ×5 (08:34→17:55)
[2024-05-28] MEDS: QUEtiapine Fumarate 200 MG TABLET PO (19:58)
[2024-05-28] MEDS: Gabapentin 400 MG CAPSULE 800 MG PO (19:58)
[2024-05-28] MEDS: traZODone HCL 50 MG TABLET PO (19:59)
[2024-05-28 20:00] VITALS: BP 124/70; PULSE 97; RESP 16; TEMP 36.7; O2SAT 97
[2024-05-29] MEDS: Nicotine Polacrilex 2 MG GUM 4 MG BUCCAL ×4 (07:03→18:31)
[2024-05-29] MEDS: methADONE HCl 20 MG/2 ML ORAL.CONC 152 MG PO (07:38)
[2024-05-29 08:00] VITALS: BP 128/75; PULSE 86; TEMP 36.9; O2SAT 97
[2024-05-29] MEDS: risperiDONE 1 MG TABLET PO ×2 (08:32→22:14)
[2024-05-29] MEDS: Doxycycline Monohydrate 100 MG CAPSULE PO ×2 (08:32→22:15)
[2024-05-29] MEDS: clonazePAM 1 MG TABLET PO ×3 (08:32→17:32)
[2024-05-29] MEDS: metroNIDAZOLE 500 MG TABLET PO ×2 (08:32→22:16)
[2024-05-29] MEDS: Topiramate 100 MG TABLET 200 MG PO (08:32)
[2024-05-29] MEDS: Gabapentin 600 MG TABLET PO ×3 (08:33→17:32)
[2024-05-29] MEDS: Venlafaxine HCl ER 75 MG CAP.ER.24H PO (08:33)
--- NOTE | 2024-05-29 13:37 | HO.PSYCHPN ---
Subjective Subjective Date of Service: 05/29/24 Reason For Visit: SI / Hallucinations Interim History: Pt reports feeling anxious and depressed; feeling increased stress d/t thinking about staying with my dad until I find my own apartment . She reports visual hallucinations of people that I don't know ; pt reports she only see them in the morning and then they fade away . denies SI/HI/AH. She reports poor sleep last night d/t increased anxiety. Medication Compliance: Yes Side effects from medications: No Mental Status Exam Mental Status Exam Patient Appearance: Well Grooomed Patient Orientation: Person, Place, Time and Situation Level of Consciousness: Awake and Alert Patient Behavior: Appropriate, Cooperative and Good Eye Contact Mood Description: Depressed and Anxious Affect Description: Blunted Ability to Follow Directions: Good Speech Pattern: Clear Hallucinations: Visual Thought Process: Intact and Goal Oriented Thought Content: positive for Intact Diagnostics Vital Signs (24Hr): Vital Signs - 24 hr 05/28/24 20:00 05/29/24 08:00 Temperature 98.1 F 98.5 F Pulse Rate 97 86 Respiratory Rate 16 Blood Pressure 124/70 128/75 Pulse Oximetry 97 97 Oxygen Delivery Method Room Air Room Air BMI result Body Mass Index 25.1 Medications Medications Current Medications Acetaminophen (Acetaminophen 325 Mg Tablet) 650 mg PO Q6H PRN PRN Reason: Headache/Pain, Scale 1-10 Al Hydroxide/Mg Hydroxide (Magnesium Hydrox/Alum Hydrox 30 Ml Oral.Susp) 30 ml PO Q6H PRN PRN Reason: Heartburn/Nausea Last Admin: 05/26/24 17:57 Dose: 30 ml Clonazepam (Clonazepam 1 Mg Tablet) 1 mg PO 0900,1300,1800 [facility] Last Admin: 05/29/24 12:50 Dose: 1 mg Doxycycline Monohydrate (Doxycycline Monohydrate 100 Mg Capsule) 100 mg PO Q12H [facility] Stop: 05/30/24 21:01 Last Admin: 05/29/24 08:32 Dose: 100 mg Gabapentin (Gabapentin 600 Mg Tablet) 600 mg PO 0900,1300,1800 [facility] Last Admin: 05/29/24 12:50 Dose: 600 mg Gabapentin (Gabapentin 400 Mg Capsule) 800 mg PO BEDTIME [facility] Last Admin: 05/28/24 19:58 Dose: 800 mg Hydroxyzine HCl (Hydroxyzine Hcl 25 Mg Tablet) 25 mg PO Q6H PRN PRN Reason: mild anxiety Last Admin: 05/27/24 20:46 Dose: 25 mg Magnesium Hydroxide (Milk Of Magnesia 30 Ml Oral.Susp) 30 ml PO DAILY PRN PRN Reason: Constipation Methadone HCl (Methadone Hcl 20 Mg/2 Ml Oral.Conc) 152 mg PO DAILY@0800 [facility] Last Admin: 05/29/24 07:38 Dose: 152 mg Metronidazole (Metronidazole 500 Mg Tablet) 500 mg PO Q12H [facility] Stop: 06/03/24 09:01 Last Admin: 05/29/24 08:32 Dose: 500 mg Nicotine Polacrilex (Nicotine Polacrilex 2 Mg Gum) 4 mg BUCCAL Q2H PRN PRN Reason: Nicotine Cravings Last Admin: 05/29/24 10:07 Dose: 4 mg Quetiapine Fumarate (Quetiapine Fumarate 50 Mg Tablet) 50 mg PO TID PRN PRN Reason: severe anxiety Last Admin: 05/27/24 20:46 Dose: 50 mg Quetiapine Fumarate (Quetiapine Fumarate 200 Mg Tablet) 200 mg PO BEDTIME [facility] Last Admin: 05/28/24 19:58 Dose: 200 mg Risperidone (Risperidone 1 Mg Tablet) 1 mg PO BID [facility] Last Admin: 05/29/24 08:32 Dose: 1 mg Topiramate (Topiramate 100 Mg Tablet) 200 mg PO DAILY [facility] Last Admin: 05/29/24 08:32 Dose: 200 mg Trazodone HCl (Trazodone Hcl 50 Mg Tablet) 50 mg PO BEDTIME [facility]X1 PRN PRN Reason: Insomnia Last Admin: 05/28/24 19:59 Dose: 50 mg Venlafaxine HCl (Venlafaxine Hcl Er 75 Mg Cap.Er.24h) 75 mg PO DAILY [facility] Last Admin: 05/29/24 08:33 Dose: 75 mg Allergies Allergies Allergy/AdvReac Type Severity Reaction Status Date / Time lamotrigine [From Lamictal] AdvReac Unknown Rash Verified 05/26/24 07:01 Assessment & Plan Assessment & Plan (1) Polysubstance use disorder: Status: Acute Code(s): F19.90 - Other psychoactive substance use, unspecified, uncomplicated (2) Bipolar disorder with psychotic features: Status: Acute Code(s): F31.9 - Bipolar disorder, unspecified Plan Admit, 15 minute checks Collateral contact Diagnostics as needed Re-start regime, ?pt may need another antipsychotic which was discussed Discharge planning 05/28: continue regime 05/29: Pt reports feeling anxious and depressed; feeling increased stress d/t thinking about staying with my dad until I find my own apartment . She reports visual hallucinations of people that I don't know ; pt reports she only see them in the morning and then they fade away . denies SI/HI/AH. She reports poor sleep last night d/t increased anxiety. Continue current tx plan. Patient educated on: medication risk/benefits and therapeutic strategies Reason for continued inpatient stay Substantial Risk for: med/psych decompensation Time Spent With Patient Time: Total time managing care of this patient today _20___ minutes.
[2024-05-29 20:00] VITALS: BP 123/76; PULSE 82; TEMP 36.9; O2SAT 99
[2024-05-29] MEDS: traZODone HCL 50 MG TABLET PO (22:14)
[2024-05-29] MEDS: Gabapentin 400 MG CAPSULE 800 MG PO (22:14)
[2024-05-29] MEDS: QUEtiapine Fumarate 200 MG TABLET PO (22:15)
[2024-05-30] MEDS: traZODone HCL 50 MG TABLET PO (01:23)
[2024-05-30] MEDS: methADONE HCl 20 MG/2 ML ORAL.CONC 152 MG PO (07:42)
[2024-05-30 08:00] VITALS: BP 123/66; PULSE 73; TEMP 36.9; O2SAT 97
[2024-05-30] MEDS: Gabapentin 600 MG TABLET PO ×3 (08:30→17:28)
[2024-05-30] MEDS: metroNIDAZOLE 500 MG TABLET PO ×2 (08:30→20:37)
[2024-05-30] MEDS: clonazePAM 1 MG TABLET PO ×3 (08:30→17:28)
[2024-05-30] MEDS: Topiramate 100 MG TABLET 200 MG PO (08:30)
[2024-05-30] MEDS: Doxycycline Monohydrate 100 MG CAPSULE PO ×2 (08:30→20:38)
[2024-05-30] MEDS: risperiDONE 1 MG TABLET PO ×2 (08:30→20:38)
[2024-05-30] MEDS: Venlafaxine HCl ER 75 MG CAP.ER.24H PO (08:30)
[2024-05-30] MEDS: Nicotine Polacrilex 2 MG GUM 4 MG BUCCAL ×2 (09:22→11:22)
[2024-05-30] MEDS: Nicotine 14 MG PATCH.TD24 TRANSDERMA (11:22)
--- NOTE | 2024-05-30 11:41 | MHC.CLN ---
NUTRITION CONSULT FOR REPORTED WEIGHT LOSS. PATIENT REPORTS 60# WEIGHT LOSS IN 3-4 MONTHS. ATTRIBUTES WEIGHT LOSS IN PART TO ACCESS TO FOOD. STATES THAT EATING WELL HERE. NO ADDITIONAL NUTRITION INTERVENTIONS AT THIS TIME.
[2024-05-30] MEDS: Milk of Magnesia 30 ML ORAL.SUSP PO (18:28)
[2024-05-30 20:00] VITALS: BP 140/79; PULSE 89; RESP 18; TEMP 36.9; O2SAT 98
[2024-05-30] MEDS: Gabapentin 400 MG CAPSULE 800 MG PO (20:37)
[2024-05-30] MEDS: QUEtiapine Fumarate 300 MG TABLET PO (20:37)
[2024-05-30] MEDS: QUEtiapine Fumarate 50 MG TABLET PO (20:37)
[2024-05-30] MEDS: traZODone HCL 100 MG TABLET PO (20:38)
[2024-05-31 08:00] VITALS: BP 100/62; PULSE 77; TEMP 36.8; O2SAT 97
[2024-05-31] MEDS: methADONE HCl 20 MG/2 ML ORAL.CONC 152 MG PO (08:04)
[2024-05-31] MEDS: metroNIDAZOLE 500 MG TABLET PO ×2 (08:43→20:32)
[2024-05-31] MEDS: Topiramate 100 MG TABLET 200 MG PO (08:43)
[2024-05-31] MEDS: Nicotine 14 MG PATCH.TD24 TRANSDERMA (08:43)
[2024-05-31] MEDS: Venlafaxine HCl ER 75 MG CAP.ER.24H PO (08:44)
[2024-05-31] MEDS: clonazePAM 1 MG TABLET PO ×3 (08:44→17:56)
[2024-05-31] MEDS: risperiDONE 1 MG TABLET PO ×2 (08:44→20:31)
[2024-05-31] MEDS: Gabapentin 600 MG TABLET PO ×3 (08:44→17:56)
[2024-05-31] MEDS: QUEtiapine Fumarate 50 MG TABLET PO ×3 (08:44→20:31)
[2024-05-31] MEDS: Nicotine Polacrilex 2 MG GUM 4 MG BUCCAL ×4 (08:44→17:56)
[2024-05-31] MEDS: Milk of Magnesia 30 ML ORAL.SUSP PO (09:15)
--- NOTE | 2024-05-31 11:40 | P.PNPSI_ITS ---
Subjective Subjective Date of Service: 05/30/24 Reason For Visit: SI / Hallucinations Subjective Notes: Conditional Voluntary Healthcare Proxy: No Guardianship: No Medical Problems Affecting Mental Status: No Interim History: Pt talked of feeling scared to return home. She discussed her relationship with her father and his not understanding her illness and that she has not been able to properly explain to him why I just cannot pull things together all of the time. Talked of her plans to apply for [employer], D[employer]. Has been rejected for a disability claim and is aware she will need an compliance attorney. Also her feelings of being alone as mother has and father has remarried, I feel as though they don't want me there at their home. Review of medicine regime with adjustments. Medication Compliance: Yes Side effects from medications: No Attending Groups: Intermittent Review of Systems Acute medical concerns: No Review of Systems Review of Systems Yes all other systems are reviewed and are negative Mental Status Exam Mental Status Exam Patient Appearance: Well Grooomed Patient Orientation: Person, Place, Time and Situation Level of Consciousness: Awake and Alert Patient Behavior: Appropriate, Cooperative and Good Eye Contact Mood Description: Depressed and Anxious Affect Description: Blunted Ability to Follow Directions: Good Speech Pattern: Clear Hallucinations: Visual Thought Process: Intact and Goal Oriented Thought Content: positive for Intact Diagnostics Vital Signs (24Hr): Vital Signs - 24 hr 05/30/24 20:00 05/31/24 08:00 Temperature 98.4 F 98.3 F Pulse Rate 89 77 Respiratory Rate 18 Blood Pressure 140/79 H 100/62 Pulse Oximetry 98 97 Oxygen Delivery Method Room Air Room Air BMI result Body Mass Index 25.1 Medications Medications Current Medications Acetaminophen (Acetaminophen 325 Mg Tablet) 650 mg PO Q6H PRN PRN Reason: Headache/Pain, Scale 1-10 Al Hydroxide/Mg Hydroxide (Magnesium Hydrox/Alum Hydrox 30 Ml Oral.Susp) 30 ml PO Q6H PRN PRN Reason: Heartburn/Nausea Last Admin: 05/26/24 17:57 Dose: 30 ml Clonazepam (Clonazepam 1 Mg Tablet) 1 mg PO 0900,1300,1800 [facility] Last Admin: 05/31/24 08:44 Dose: 1 mg Docusate Sodium (Docusate Sodium 100 Mg Capsule) 100 mg PO BID PRN PRN Reason: Constipation Gabapentin (Gabapentin 600 Mg Tablet) 600 mg PO 0900,1300,1800 [facility] Last Admin: 05/31/24 08:44 Dose: 600 mg Gabapentin (Gabapentin 400 Mg Capsule) 800 mg PO BEDTIME [facility] Last Admin: 05/30/24 20:37 Dose: 800 mg Hydroxyzine HCl (Hydroxyzine Hcl 25 Mg Tablet) 25 mg PO Q6H PRN PRN Reason: mild anxiety Last Admin: 05/27/24 20:46 Dose: 25 mg Magnesium Hydroxide (Milk Of Magnesia 30 Ml Oral.Susp) 30 ml PO DAILY PRN PRN Reason: Constipation Last Admin: 05/31/24 09:15 Dose: 30 ml Methadone HCl (Methadone Hcl 20 Mg/2 Ml Oral.Conc) 152 mg PO DAILY@0800 [facility] Last Admin: 05/31/24 08:04 Dose: 152 mg Metronidazole (Metronidazole 500 Mg Tablet) 500 mg PO Q12H [facility] Stop: 06/03/24 09:01 Last Admin: 05/31/24 08:43 Dose: 500 mg Nicotine (Nicotine 14 Mg Patch.Td24) 14 mg TRANSDERMA DAILY [facility] Last Admin: 05/31/24 08:43 Dose: 14 mg Nicotine Polacrilex (Nicotine Polacrilex 2 Mg Gum) 4 mg BUCCAL Q2H PRN PRN Reason: Nicotine Cravings Last Admin: 05/31/24 11:04 Dose: 4 mg Quetiapine Fumarate (Quetiapine Fumarate 50 Mg Tablet) 50 mg PO TID PRN PRN Reason: severe anxiety Last Admin: 05/27/24 20:46 Dose: 50 mg Quetiapine Fumarate (Quetiapine Fumarate 300 Mg Tablet) 300 mg PO BEDTIME [facility] Last Admin: 05/30/24 20:37 Dose: 300 mg Quetiapine Fumarate (Quetiapine Fumarate 50 Mg Tablet) 50 mg PO TID [facility] Last Admin: 05/31/24 08:44 Dose: 50 mg Risperidone (Risperidone 1 Mg Tablet) 1 mg PO BID [facility] Last Admin: 05/31/24 08:44 Dose: 1 mg Senna/Docusate Sodium (Sennosides/Docusate Sodium Tablet) 2 tab PO DAILY PRN PRN Reason: Constipation Topiramate (Topiramate 100 Mg Tablet) 200 mg PO DAILY [facility] Last Admin: 05/31/24 08:43 Dose: 200 mg Trazodone HCl (Trazodone Hcl 100 Mg Tablet) 100 mg PO BEDTIME [facility] Last Admin: 05/30/24 20:38 Dose: 100 mg Venlafaxine HCl (Venlafaxine Hcl Er 75 Mg Cap.Er.24h) 75 mg PO DAILY [facility] Last Admin: 05/31/24 08:44 Dose: 75 mg Allergies Allergies Allergy/AdvReac Type Severity Reaction Status Date / Time lamotrigine [From Lamictal] AdvReac Unknown Rash Verified 05/26/24 07:01 Assessment & Plan Assessment & Plan (1) Polysubstance use disorder: Status: Acute Code(s): F19.90 - Other psychoactive substance use, unspecified, uncomplicated (2) Bipolar disorder with psychotic features: Status: Acute Code(s): F31.9 - Bipolar disorder, unspecified Plan Admit, 15 minute checks Collateral contact Diagnostics as needed Re-start regime, ?pt may need another antipsychotic which was discussed Discharge planning 05/28: continue regime 05/29: Pt reports feeling anxious and depressed; feeling increased stress d/t thinking about staying with my dad until I find my own apartment . She reports visual hallucinations of people that I don't know ; pt reports she only see them in the morning and then they fade away . denies SI/HI/AH. She reports poor sleep last night d/t increased anxiety. Continue current tx plan. 05/30: Increase Seroquel to 300 mg HS and 50 mg tid Trazodone 100 mg hs Reason for continued inpatient stay Substantial Risk for: rapid decompensation Time Spent With Patient Time: Total time managing care of this patient today ____ minutes.
[2024-05-31] MEDS: Sennosides/Docusate Sodium TABLET 2 TAB PO (14:07)
[2024-05-31 20:00] VITALS: BP 127/78; PULSE 78; RESP 18; TEMP 36.6; O2SAT 98
[2024-05-31] MEDS: traZODone HCL 100 MG TABLET PO (20:31)
[2024-05-31] MEDS: QUEtiapine Fumarate 300 MG TABLET PO (20:31)
[2024-05-31] MEDS: Docusate Sodium 100 MG CAPSULE PO (20:31)
[2024-05-31] MEDS: Gabapentin 400 MG CAPSULE 800 MG PO (20:31)
[2024-06-01] MEDS: methADONE HCl 20 MG/2 ML ORAL.CONC 152 MG PO (07:55)
[2024-06-01 08:00] VITALS: BP 110/58; PULSE 86; RESP 16; TEMP 36.8; O2SAT 98
[2024-06-01] MEDS: Venlafaxine HCl ER 75 MG CAP.ER.24H PO (08:56)
[2024-06-01] MEDS: Nicotine 14 MG PATCH.TD24 TRANSDERMA (08:56)
[2024-06-01] MEDS: metroNIDAZOLE 500 MG TABLET PO ×2 (08:57→20:28)
[2024-06-01] MEDS: clonazePAM 1 MG TABLET PO ×3 (08:57→17:26)
[2024-06-01] MEDS: Gabapentin 600 MG TABLET PO ×3 (08:57→17:26)
[2024-06-01] MEDS: QUEtiapine Fumarate 50 MG TABLET PO ×4 (08:57→22:49)
[2024-06-01] MEDS: Topiramate 100 MG TABLET 200 MG PO (08:57)
[2024-06-01] MEDS: risperiDONE 1 MG TABLET PO ×2 (08:57→20:28)
[2024-06-01] MEDS: Docusate Sodium 100 MG CAPSULE PO (08:58)
--- NOTE | 2024-06-01 14:02 | P.PNPSI_ITS ---
Subjective Subjective Date of Service: 06/01/24 Reason For Visit: SI / Hallucinations Subjective Notes: Conditional Voluntary Healthcare Proxy: No Guardianship: No Medical Problems Affecting Mental Status: No Interim History: Treatment discussed with pt's father, Jc [phone]. Review of meds, ongoing treatment needs. Father asks if pt will ever be able to work and we discussed getting disability in place, [employer] and [employer] structured work if her bipolar disorder is stable. He has been working with this for 20+ years and finds that she cannot count on herself for structure. He suggests a longer term residential program. She agrees and asks that we check into [facility]. Medication Compliance: Yes Side effects from medications: No Attending Groups: Intermittent Review of Systems Acute medical concerns: No Medical Review of Systems: unchanged Mental Status Exam Mental Status Exam Patient Appearance: Well Grooomed Patient Orientation: Person, Place, Time and Situation Level of Consciousness: Awake and Alert Patient Behavior: Appropriate, Cooperative and Good Eye Contact Mood Description: Depressed and Anxious Affect Description: Blunted Ability to Follow Directions: Good Speech Pattern: Clear Hallucinations: Visual Thought Process: Intact and Goal Oriented Thought Content: positive for Intact Diagnostics Vital Signs (24Hr): Vital Signs - 24 hr 05/31/24 20:00 06/01/24 08:00 Temperature 97.8 F 98.2 F Pulse Rate 78 86 Respiratory Rate 18 16 Blood Pressure 127/78 110/58 L Pulse Oximetry 98 98 Oxygen Delivery Method Room Air Room Air BMI result Body Mass Index 25.1 Medications Medications Current Medications Acetaminophen (Acetaminophen 325 Mg Tablet) 650 mg PO Q6H PRN PRN Reason: Headache/Pain, Scale 1-10 Al Hydroxide/Mg Hydroxide (Magnesium Hydrox/Alum Hydrox 30 Ml Oral.Susp) 30 ml PO Q6H PRN PRN Reason: Heartburn/Nausea Last Admin: 05/26/24 17:57 Dose: 30 ml Clonazepam (Clonazepam 1 Mg Tablet) 1 mg PO 0900,1300,1800 [facility] Last Admin: 06/01/24 13:31 Dose: 1 mg Docusate Sodium (Docusate Sodium 100 Mg Capsule) 100 mg PO BID PRN PRN Reason: Constipation Last Admin: 06/01/24 08:58 Dose: 100 mg Gabapentin (Gabapentin 600 Mg Tablet) 600 mg PO 0900,1300,1800 [facility] Last Admin: 06/01/24 13:31 Dose: 600 mg Gabapentin (Gabapentin 400 Mg Capsule) 800 mg PO BEDTIME [facility] Last Admin: 05/31/24 20:31 Dose: 800 mg Hydroxyzine HCl (Hydroxyzine Hcl 25 Mg Tablet) 25 mg PO Q6H PRN PRN Reason: mild anxiety Last Admin: 05/27/24 20:46 Dose: 25 mg Magnesium Hydroxide (Milk Of Magnesia 30 Ml Oral.Susp) 30 ml PO DAILY PRN PRN Reason: Constipation Last Admin: 05/31/24 09:15 Dose: 30 ml Methadone HCl (Methadone Hcl 20 Mg/2 Ml Oral.Conc) 152 mg PO DAILY@0800 [facility] Last Admin: 06/01/24 07:55 Dose: 152 mg Metronidazole (Metronidazole 500 Mg Tablet) 500 mg PO Q12H [facility] Stop: 06/03/24 09:01 Last Admin: 06/01/24 08:57 Dose: 500 mg Nicotine (Nicotine 14 Mg Patch.Td24) 14 mg TRANSDERMA DAILY [facility] Last Admin: 06/01/24 08:56 Dose: 14 mg Nicotine Polacrilex (Nicotine Polacrilex 2 Mg Gum) 4 mg BUCCAL Q2H PRN PRN Reason: Nicotine Cravings Last Admin: 05/31/24 17:56 Dose: 4 mg Quetiapine Fumarate (Quetiapine Fumarate 50 Mg Tablet) 50 mg PO TID PRN PRN Reason: severe anxiety Last Admin: 05/27/24 20:46 Dose: 50 mg Quetiapine Fumarate (Quetiapine Fumarate 300 Mg Tablet) 300 mg PO BEDTIME [facility] Last Admin: 05/31/24 20:31 Dose: 300 mg Quetiapine Fumarate (Quetiapine Fumarate 50 Mg Tablet) 50 mg PO TID [facility] Last Admin: 06/01/24 08:57 Dose: 50 mg Risperidone (Risperidone 1 Mg Tablet) 1 mg PO BID [facility] Last Admin: 06/01/24 08:57 Dose: 1 mg Senna/Docusate Sodium (Sennosides/Docusate Sodium Tablet) 2 tab PO DAILY PRN PRN Reason: Constipation Last Admin: 05/31/24 14:07 Dose: 2 tab Topiramate (Topiramate 100 Mg Tablet) 200 mg PO DAILY [facility] Last Admin: 06/01/24 08:57 Dose: 200 mg Trazodone HCl (Trazodone Hcl 100 Mg Tablet) 100 mg PO BEDTIME [facility] Last Admin: 05/31/24 20:31 Dose: 100 mg Venlafaxine HCl (Venlafaxine Hcl Er 75 Mg Cap.Er.24h) 75 mg PO DAILY [facility] Last Admin: 06/01/24 08:56 Dose: 75 mg Allergies Allergies Allergy/AdvReac Type Severity Reaction Status Date / Time lamotrigine [From Lamictal] AdvReac Unknown Rash Verified 05/26/24 07:01 Assessment & Plan Assessment & Plan (1) Polysubstance use disorder: Status: Acute Code(s): F19.90 - Other psychoactive substance use, unspecified, uncomplicated (2) Bipolar disorder with psychotic features: Status: Acute Code(s): F31.9 - Bipolar disorder, unspecified Plan Admit, 15 minute checks Collateral contact Diagnostics as needed Re-start regime, ?pt may need another antipsychotic which was discussed Discharge planning 05/28: continue regime 05/29: Pt reports feeling anxious and depressed; feeling increased stress d/t thinking about staying with my dad until I find my own apartment . She reports visual hallucinations of people that I don't know ; pt reports she only see them in the morning and then they fade away . denies SI/HI/AH. She reports poor sleep last night d/t increased anxiety. Continue current tx plan. 06/01: Continue regime/plan. Assess for residential treatment potential. Pt asks about [facility]. Reason for continued inpatient stay Substantial Risk for: rapid decompensation Time Spent With Patient Time: Total time managing care of this patient today ____ minutes.
--- NOTE | 2024-06-01 14:31 | PC.NURSE ---
Addendum entered by Aline Rivas RN 06/01/24 14:34: PT ALLOWED FATHER TO TAKE HER FULL SET OF KEYS AND NOT JUST APARTMENT REECE. FATHER TOOK KEYS AT VISIT. Original Note: PT GIVES VERBAL PERMISSION FOR STAFF TO [facility] FATHER THE REECE TO HER APARTMENT
[2024-06-01] MEDS: Nicotine Polacrilex 2 MG GUM 4 MG BUCCAL (17:35)
[2024-06-01] MEDS: Milk of Magnesia 30 ML ORAL.SUSP PO (19:07)
[2024-06-01 19:50] VITALS: BP 121/56; PULSE 86; RESP 16; TEMP 37; O2SAT 98
--- NOTE | 2024-06-01 20:19 | P.PNPSI_ITS ---
Subjective Subjective Date of Service: 05/31/24 Reason For Visit: SI / Hallucinations Subjective Notes: Conditional Voluntary Healthcare Proxy: No Guardianship: No Medical Problems Affecting Mental Status: No Interim History: Pt requests we talk with her father about her illness, why she cannot work consistently and what treatment her diagnosis requires. He thinks it is drug addict manipulation. Discussed issues/concerns with father. Will attempt to reach out and discuss these with him. Medication Compliance: Yes Side effects from medications: No Attending Groups: Intermittent Review of Systems Acute medical concerns: No Medical Review of Systems: unchanged Review of Systems Review of Systems denies Mental Status Exam Mental Status Exam Patient Appearance: Well Grooomed Patient Orientation: Person, Place, Time and Situation Level of Consciousness: Awake and Alert Patient Behavior: Appropriate, Cooperative and Good Eye Contact Mood Description: Depressed and Anxious Affect Description: Blunted Ability to Follow Directions: Good Speech Pattern: Clear Hallucinations: Visual Thought Process: Intact and Goal Oriented Thought Content: positive for Intact Diagnostics Vital Signs (24Hr): Vital Signs - 24 hr 06/01/24 08:00 06/01/24 19:50 Temperature 98.2 F 98.6 F Pulse Rate 86 86 Respiratory Rate 16 16 Blood Pressure 110/58 L 121/56 L Pulse Oximetry 98 98 Oxygen Delivery Method Room Air Room Air BMI result Body Mass Index 25.1 Medications Medications Current Medications Acetaminophen (Acetaminophen 325 Mg Tablet) 650 mg PO Q6H PRN PRN Reason: Headache/Pain, Scale 1-10 Al Hydroxide/Mg Hydroxide (Magnesium Hydrox/Alum Hydrox 30 Ml Oral.Susp) 30 ml PO Q6H PRN PRN Reason: Heartburn/Nausea Last Admin: 05/26/24 17:57 Dose: 30 ml Clonazepam (Clonazepam 1 Mg Tablet) 1 mg PO 0900,1300,1800 [facility] Last Admin: 06/01/24 17:26 Dose: 1 mg Docusate Sodium (Docusate Sodium 100 Mg Capsule) 100 mg PO BID PRN PRN Reason: Constipation Last Admin: 06/01/24 08:58 Dose: 100 mg Gabapentin (Gabapentin 600 Mg Tablet) 600 mg PO 0900,1300,1800 [facility] Last Admin: 06/01/24 17:26 Dose: 600 mg Gabapentin (Gabapentin 400 Mg Capsule) 800 mg PO BEDTIME [facility] Last Admin: 05/31/24 20:31 Dose: 800 mg Hydroxyzine HCl (Hydroxyzine Hcl 25 Mg Tablet) 25 mg PO Q6H PRN PRN Reason: mild anxiety Last Admin: 05/27/24 20:46 Dose: 25 mg Magnesium Hydroxide (Milk Of Magnesia 30 Ml Oral.Susp) 30 ml PO DAILY PRN PRN Reason: Constipation Last Admin: 06/01/24 19:07 Dose: 30 ml Methadone HCl (Methadone Hcl 20 Mg/2 Ml Oral.Conc) 152 mg PO DAILY@0800 [facility] Last Admin: 06/01/24 07:55 Dose: 152 mg Metronidazole (Metronidazole 500 Mg Tablet) 500 mg PO Q12H [facility] Stop: 06/03/24 09:01 Last Admin: 06/01/24 08:57 Dose: 500 mg Nicotine (Nicotine 14 Mg Patch.Td24) 14 mg TRANSDERMA DAILY [facility] Last Admin: 06/01/24 08:56 Dose: 14 mg Nicotine Polacrilex (Nicotine Polacrilex 2 Mg Gum) 4 mg BUCCAL Q2H PRN PRN Reason: Nicotine Cravings Last Admin: 06/01/24 17:35 Dose: 4 mg Quetiapine Fumarate (Quetiapine Fumarate 50 Mg Tablet) 50 mg PO TID PRN PRN Reason: severe anxiety Last Admin: 05/27/24 20:46 Dose: 50 mg Quetiapine Fumarate (Quetiapine Fumarate 300 Mg Tablet) 300 mg PO BEDTIME [facility] Last Admin: 05/31/24 20:31 Dose: 300 mg Quetiapine Fumarate (Quetiapine Fumarate 50 Mg Tablet) 50 mg PO TID [facility] Last Admin: 06/01/24 16:12 Dose: 50 mg Risperidone (Risperidone 1 Mg Tablet) 1 mg PO BID [facility] Last Admin: 06/01/24 08:57 Dose: 1 mg Senna/Docusate Sodium (Sennosides/Docusate Sodium Tablet) 2 tab PO DAILY PRN PRN Reason: Constipation Last Admin: 05/31/24 14:07 Dose: 2 tab Topiramate (Topiramate 100 Mg Tablet) 200 mg PO DAILY [facility] Last Admin: 06/01/24 08:57 Dose: 200 mg Trazodone HCl (Trazodone Hcl 100 Mg Tablet) 100 mg PO BEDTIME [facility] Last Admin: 05/31/24 20:31 Dose: 100 mg Venlafaxine HCl (Venlafaxine Hcl Er 75 Mg Cap.Er.24h) 75 mg PO DAILY [facility] Last Admin: 06/01/24 08:56 Dose: 75 mg Allergies Allergies Allergy/AdvReac Type Severity Reaction Status Date / Time lamotrigine [From Lamictal] AdvReac Unknown Rash Verified 05/26/24 07:01 Assessment & Plan Assessment & Plan (1) Polysubstance use disorder: Status: Acute Code(s): F19.90 - Other psychoactive substance use, unspecified, uncomplicated (2) Bipolar disorder with psychotic features: Status: Acute Code(s): F31.9 - Bipolar disorder, unspecified Plan Admit, 15 minute checks Collateral contact Diagnostics as needed Re-start regime, ?pt may need another antipsychotic which was discussed Discharge planning 05/28: continue regime 05/29: Pt reports feeling anxious and depressed; feeling increased stress d/t thinking about staying with my dad until I find my own apartment . She reports visual hallucinations of people that I don't know ; pt reports she only see them in the morning and then they fade away . denies SI/HI/AH. She reports poor sleep last night d/t increased anxiety. Continue current tx plan. 05/30: Increase Seroquel to 300 mg HS and 50 mg tid Trazodone 100 mg hs 05/31: Will reach out to pt's father per her request to discuss diagnosis, plan of care. Reason for continued inpatient stay Substantial Risk for: rapid decompensation Time Spent With Patient Time: Total time managing care of this patient today ____ minutes.
[2024-06-01] MEDS: QUEtiapine Fumarate 300 MG TABLET PO (20:28)
[2024-06-01] MEDS: Gabapentin 400 MG CAPSULE 800 MG PO (20:28)
[2024-06-01] MEDS: traZODone HCL 100 MG TABLET PO (20:28)
[2024-06-02] MEDS: methADONE HCl 20 MG/2 ML ORAL.CONC 152 MG PO (07:50)
[2024-06-02 08:00] VITALS: BP 128/75; PULSE 87; RESP 16; TEMP 36.4; O2SAT 98
[2024-06-02] MEDS: Nicotine 14 MG PATCH.TD24 TRANSDERMA (08:00)
[2024-06-02] MEDS: metroNIDAZOLE 500 MG TABLET PO ×2 (08:01→20:32)
[2024-06-02] MEDS: Topiramate 100 MG TABLET 200 MG PO (08:01)
[2024-06-02] MEDS: QUEtiapine Fumarate 50 MG TABLET PO ×2 (08:01→20:32)
[2024-06-02] MEDS: Venlafaxine HCl ER 75 MG CAP.ER.24H PO (08:01)
[2024-06-02] MEDS: Sennosides/Docusate Sodium TABLET 2 TAB PO (08:01)
[2024-06-02] MEDS: Gabapentin 600 MG TABLET PO ×3 (08:01→17:00)
[2024-06-02] MEDS: risperiDONE 1 MG TABLET PO ×2 (08:01→20:32)
[2024-06-02] MEDS: Nicotine Polacrilex 2 MG GUM 4 MG BUCCAL ×4 (08:01→20:57)
[2024-06-02] MEDS: clonazePAM 1 MG TABLET PO ×3 (08:01→17:00)
--- NOTE | 2024-06-02 10:00 | P.PNPSI_ITS ---
Subjective Subjective Date of Service: 06/02/24 Reason For Visit: SI / Hallucinations Interim History: met with patient; discussed with team; reviewed chart mood is kind of depressed, no improvement; SI remains. Discussed meds and she agrees to increase Effexor (was on 150mg for 2 days before this admission) says VH only ever occur when she wakes up from sleep; otherwise none Mental Status Exam Mental Status Exam Patient Appearance: Well Grooomed Patient Orientation: Person, Place, Time and Situation Level of Consciousness: Drowsy Patient Behavior: Appropriate, Cooperative and Good Eye Contact Mood Description: Depressed and Anxious Affect Description: Blunted Ability to Follow Directions: Good Speech Pattern: Clear Hallucinations: Visual (only when waking up from sleep) Delusions: Not Present (none expressed) Thought Process: Intact and Goal Oriented Thought Content: positive for Goal Oriented and positive for Suicidal Ideation (SI remains) Judgement and Insight: impaired Diagnostics Vital Signs (24Hr): Vital Signs - 24 hr 06/01/24 19:50 06/02/24 08:00 Temperature 98.6 F 97.5 F Pulse Rate 86 87 Respiratory Rate 16 16 Blood Pressure 121/56 L 128/75 Pulse Oximetry 98 98 Oxygen Delivery Method Room Air Room Air BMI result Body Mass Index 25.1 Medications Medications Current Medications Acetaminophen (Acetaminophen 325 Mg Tablet) 650 mg PO Q6H PRN PRN Reason: Headache/Pain, Scale 1-10 Al Hydroxide/Mg Hydroxide (Magnesium Hydrox/Alum Hydrox 30 Ml Oral.Susp) 30 ml PO Q6H PRN PRN Reason: Heartburn/Nausea Last Admin: 05/26/24 17:57 Dose: 30 ml Clonazepam (Clonazepam 1 Mg Tablet) 1 mg PO 0900,1300,1800 [facility] Last Admin: 06/02/24 08:01 Dose: 1 mg Docusate Sodium (Docusate Sodium 100 Mg Capsule) 100 mg PO BID PRN PRN Reason: Constipation Last Admin: 06/01/24 08:58 Dose: 100 mg Gabapentin (Gabapentin 600 Mg Tablet) 600 mg PO 0900,1300,1800 [facility] Last Admin: 06/02/24 08:01 Dose: 600 mg Gabapentin (Gabapentin 400 Mg Capsule) 800 mg PO BEDTIME [facility] Last Admin: 06/01/24 20:28 Dose: 800 mg Hydroxyzine HCl (Hydroxyzine Hcl 25 Mg Tablet) 25 mg PO Q6H PRN PRN Reason: mild anxiety Last Admin: 05/27/24 20:46 Dose: 25 mg Magnesium Hydroxide (Milk Of Magnesia 30 Ml Oral.Susp) 30 ml PO DAILY PRN PRN Reason: Constipation Last Admin: 06/01/24 19:07 Dose: 30 ml Methadone HCl (Methadone Hcl 20 Mg/2 Ml Oral.Conc) 152 mg PO DAILY@0800 [facility] Last Admin: 06/02/24 07:50 Dose: 152 mg Metronidazole (Metronidazole 500 Mg Tablet) 500 mg PO Q12H [facility] Stop: 06/03/24 09:01 Last Admin: 06/02/24 08:01 Dose: 500 mg Nicotine (Nicotine 14 Mg Patch.Td24) 14 mg TRANSDERMA DAILY [facility] Last Admin: 06/02/24 08:00 Dose: 14 mg Nicotine Polacrilex (Nicotine Polacrilex 2 Mg Gum) 4 mg BUCCAL Q2H PRN PRN Reason: Nicotine Cravings Last Admin: 06/02/24 08:01 Dose: 4 mg Quetiapine Fumarate (Quetiapine Fumarate 50 Mg Tablet) 50 mg PO TID PRN PRN Reason: severe anxiety Last Admin: 06/01/24 22:49 Dose: 50 mg Quetiapine Fumarate (Quetiapine Fumarate 300 Mg Tablet) 300 mg PO BEDTIME [facility] Last Admin: 06/01/24 20:28 Dose: 300 mg Quetiapine Fumarate (Quetiapine Fumarate 50 Mg Tablet) 50 mg PO TID [facility] Last Admin: 06/02/24 08:01 Dose: 50 mg Risperidone (Risperidone 1 Mg Tablet) 1 mg PO BID [facility] Last Admin: 06/02/24 08:01 Dose: 1 mg Senna/Docusate Sodium (Sennosides/Docusate Sodium Tablet) 2 tab PO DAILY PRN PRN Reason: Constipation Last Admin: 06/02/24 08:01 Dose: 2 tab Topiramate (Topiramate 100 Mg Tablet) 200 mg PO DAILY [facility] Last Admin: 06/02/24 08:01 Dose: 200 mg Trazodone HCl (Trazodone Hcl 100 Mg Tablet) 100 mg PO BEDTIME [facility] Last Admin: 06/01/24 20:28 Dose: 100 mg Venlafaxine HCl (Venlafaxine Hcl Er 75 Mg Cap.Er.24h) 75 mg PO DAILY [facility] Last Admin: 06/02/24 08:01 Dose: 75 mg Allergies Allergies Allergy/AdvReac Type Severity Reaction Status Date / Time lamotrigine [From Lamictal] AdvReac Unknown Rash Verified 05/26/24 07:01 Assessment & Plan Assessment & Plan (1) Bipolar disorder with psychotic features: Status: Acute Code(s): F31.9 - Bipolar disorder, unspecified (2) Polysubstance use disorder: Status: Acute Code(s): F19.90 - Other psychoactive substance use, unspecified, uncomplicated Plan Admit, 15 minute checks INCreased Effexor XL to 150mg (remains depressed) Collateral contact Diagnostics as needed Re-start regime, ?pt may need another antipsychotic which was discussed Discharge planning 05/28: continue regime 05/29: Pt reports feeling anxious and depressed; feeling increased stress d/t thinking about staying with my dad until I find my own apartment . She reports visual hallucinations of people that I don't know ; pt reports she only see them in the morning and then they fade away . denies SI/HI/AH. She reports poor sleep last night d/t increased anxiety. Continue current tx plan. 06/01: Continue regime/plan. Assess for residential treatment potential. Pt asks about [facility]. 06/02 mood is kind of depressed, no improvement; SI remains. Discussed meds and she agrees to increase Effexor (was on 150mg for 2 days before this admission); says VH only ever occur when she wakes up from sleep; otherwise none Patient educated on: diagnosis and medication risk/benefits Informed Consent: understands Reason for continued inpatient stay Substantial Risk for: inability to function Time Spent With Patient Time: Total time managing care of this patient today ____ minutes.
[2024-06-02] MEDS: Venlafaxine HCl ER 37.5 MG CAP.ER.24H PO (12:16)
[2024-06-02 19:44] VITALS: BP 123/62; PULSE 87; RESP 16; TEMP 36.8; O2SAT 98
[2024-06-02] MEDS: QUEtiapine Fumarate 300 MG TABLET PO (20:32)
[2024-06-02] MEDS: traZODone HCL 100 MG TABLET PO (20:32)
[2024-06-02] MEDS: Gabapentin 400 MG CAPSULE 800 MG PO (20:32)
[2024-06-03] MEDS: methADONE HCl 20 MG/2 ML ORAL.CONC 152 MG PO (07:35)
[2024-06-03 08:00] VITALS: BP 129/68; PULSE 73; RESP 18; TEMP 36.4; O2SAT 98
[2024-06-03] MEDS: QUEtiapine Fumarate 50 MG TABLET PO ×3 (08:11→20:22)
[2024-06-03] MEDS: Nicotine 14 MG PATCH.TD24 TRANSDERMA (08:11)
[2024-06-03] MEDS: Topiramate 100 MG TABLET 200 MG PO (08:11)
[2024-06-03] MEDS: Venlafaxine HCl ER 150 MG CAP.ER.24H PO (08:12)
[2024-06-03] MEDS: Gabapentin 600 MG TABLET PO ×3 (08:12→17:34)
[2024-06-03] MEDS: clonazePAM 1 MG TABLET PO ×3 (08:12→17:34)
[2024-06-03] MEDS: metroNIDAZOLE 500 MG TABLET PO (08:12)
[2024-06-03] MEDS: Nicotine Polacrilex 2 MG GUM 4 MG BUCCAL ×6 (08:44→20:22)
--- NOTE | 2024-06-03 10:05 | P.PNPSI_ITS ---
Subjective Subjective Date of Service: 06/03/24 Reason For Visit: SI / Hallucinations Interim History: Met with patient; discussed with team Patient feels overly sedated by risperidone. It did help decrease VH in the morning but the sedation was overwhelming and even caused her to wet the bed. Discussed her experience a VH and for about 10 years, every time she wakes up in the morning, she will see people, typically celebrities. They never speak to her, she knows they are not real, and they remain for about 10 or 15 minutes and then disappear. Happens more frequently than not. No AH at all and otherwise denies any other history of VH. It is distressing to her since she knows they are not real. Discussed options including going up on the Seroquel and patient would like to try haloperidol instead since it might be less sedating. Mobile Tester reviewed risks/side effects of being on Haldol including with additional Seroquel. Mental Status Exam Mental Status Exam Narrative: Pt is alert and oriented; behavior is cooperative, friendly and calm; patient is not in distress; dressed in casual attire with unkempt hair but adequate hygiene; mood is described as better and affect congruent, brighter, not drowsy; eye contact appropriate; Speech is normal rate, volume and prosody and not pressured; no psychomotor agitation/retardation present; thought process is organized and goal directed; Thought content is on tx; otherwise pertinent to relevant topics and without any delusional content, paranoid ideations or grandiosity; denies any SI/HI. VH that last for 10-15 minutes when she wakes up in the morning; Patients insight and judgment appear intact. Diagnostics Vital Signs (24Hr): Vital Signs - 24 hr 06/02/24 19:44 06/03/24 08:00 Temperature 98.3 F 97.6 F Pulse Rate 87 73 Respiratory Rate 16 18 Blood Pressure 123/62 129/68 Pulse Oximetry 98 98 Oxygen Delivery Method Room Air Room Air BMI result Body Mass Index 25.1 Medications Medications Current Medications Acetaminophen (Acetaminophen 325 Mg Tablet) 650 mg PO Q6H PRN PRN Reason: Headache/Pain, Scale 1-10 Al Hydroxide/Mg Hydroxide (Magnesium Hydrox/Alum Hydrox 30 Ml Oral.Susp) 30 ml PO Q6H PRN PRN Reason: Heartburn/Nausea Last Admin: 05/26/24 17:57 Dose: 30 ml Clonazepam (Clonazepam 1 Mg Tablet) 1 mg PO 0900,1300,1800 [facility] Last Admin: 06/03/24 08:12 Dose: 1 mg Docusate Sodium (Docusate Sodium 100 Mg Capsule) 100 mg PO BID PRN PRN Reason: Constipation Last Admin: 06/01/24 08:58 Dose: 100 mg Gabapentin (Gabapentin 600 Mg Tablet) 600 mg PO 0900,1300,1800 [facility] Last Admin: 06/03/24 08:12 Dose: 600 mg Gabapentin (Gabapentin 400 Mg Capsule) 800 mg PO BEDTIME [facility] Last Admin: 06/02/24 20:32 Dose: 800 mg Hydroxyzine HCl (Hydroxyzine Hcl 25 Mg Tablet) 25 mg PO Q6H PRN PRN Reason: mild anxiety Last Admin: 05/27/24 20:46 Dose: 25 mg Magnesium Hydroxide (Milk Of Magnesia 30 Ml Oral.Susp) 30 ml PO DAILY PRN PRN Reason: Constipation Last Admin: 06/01/24 19:07 Dose: 30 ml Methadone HCl (Methadone Hcl 20 Mg/2 Ml Oral.Conc) 152 mg PO DAILY@0800 [facility] Last Admin: 06/03/24 07:35 Dose: 152 mg Nicotine (Nicotine 14 Mg Patch.Td24) 14 mg TRANSDERMA DAILY [facility] Last Admin: 06/03/24 08:11 Dose: 14 mg Nicotine Polacrilex (Nicotine Polacrilex 2 Mg Gum) 4 mg BUCCAL Q2H PRN PRN Reason: Nicotine Cravings Last Admin: 06/03/24 08:44 Dose: 4 mg Quetiapine Fumarate (Quetiapine Fumarate 50 Mg Tablet) 50 mg PO TID PRN PRN Reason: severe anxiety Last Admin: 06/01/24 22:49 Dose: 50 mg Quetiapine Fumarate (Quetiapine Fumarate 300 Mg Tablet) 300 mg PO BEDTIME [facility] Last Admin: 06/02/24 20:32 Dose: 300 mg Quetiapine Fumarate (Quetiapine Fumarate 50 Mg Tablet) 50 mg PO TID [facility] Last Admin: 06/03/24 08:11 Dose: 50 mg Risperidone (Risperidone 1 Mg Tablet) 1 mg PO BID [facility] Last Admin: 06/03/24 08:16 Dose: Not Given Senna/Docusate Sodium (Sennosides/Docusate Sodium Tablet) 2 tab PO DAILY PRN PRN Reason: Constipation Last Admin: 06/02/24 08:01 Dose: 2 tab Topiramate (Topiramate 100 Mg Tablet) 200 mg PO DAILY [facility] Last Admin: 06/03/24 08:11 Dose: 200 mg Trazodone HCl (Trazodone Hcl 100 Mg Tablet) 100 mg PO BEDTIME [facility] Last Admin: 06/02/24 20:32 Dose: 100 mg Venlafaxine HCl (Venlafaxine Hcl Er 150 Mg Cap.Er.24h) 150 mg PO DAILY [facility] Last Admin: 06/03/24 08:12 Dose: 150 mg Allergies Allergies Allergy/AdvReac Type Severity Reaction Status Date / Time lamotrigine [From Lamictal] AdvReac Unknown Rash Verified 05/26/24 07:01 Assessment & Plan Assessment & Plan (1) Bipolar disorder with psychotic features: Status: Acute Code(s): F31.9 - Bipolar disorder, unspecified (2) Polysubstance use disorder: Status: Acute Code(s): F19.90 - Other psychoactive substance use, unspecified, uncomplicated Plan Admit, 15 minute checks INCreased Effexor XL to 150mg (remains depressed) Collateral contact Diagnostics as needed Re-start regime, ?pt may need another antipsychotic which was discussed Discharge planning 05/28: continue regime 05/29: Pt reports feeling anxious and depressed; feeling increased stress d/t thinking about staying with my dad until I find my own apartment . She reports visual hallucinations of people that I don't know ; pt reports she only see them in the morning and then they fade away . denies SI/HI/AH. She reports poor sleep last night d/t increased anxiety. Continue current tx plan. 06/01: Continue regime/plan. Assess for residential treatment potential. Pt asks about [facility]. 06/02 mood is kind of depressed, no improvement; SI remains. Discussed meds and she agrees to increase Effexor (was on 150mg for 2 days before this admission); says VH only ever occur when she wakes up from sleep; otherwise none 06/03 Patient feels overly sedated by risperidone. It did help decrease VH in the morning but the sedation was overwhelming and even caused her to wet the bed. Discussed her experience a VH and for about 10 years, every time she wakes up in the morning, she will see people, typically celebrities. They never speak to her, she knows they are not real, and they remain for about 10 or 15 minutes and then disappear. Happens more frequently than not. No AH at all and otherwise denies any other history of VH. It is distressing to her since she knows they are not real. Discussed options including going up on the Seroquel and patient would like to try haloperidol instead since it might be less sedating. Mobile Tester reviewed risks/side effects of being on Haldol including with additional Seroquel -dc Risperdal -add Haldol 2mg qhs (may instead consider increasing Seroquel instead of adding Haldol) Patient educated on: diagnosis and medication risk/benefits Informed Consent: understands Reason for continued inpatient stay Substantial Risk for: rapid decompensation Time Spent With Patient Time: Total time managing care of this patient today ____ minutes.
[2024-06-03] MEDS: Docusate Sodium 100 MG CAPSULE PO (14:59)
[2024-06-03 19:44] VITALS: BP 110/72; PULSE 97; RESP 16; TEMP 37.1; O2SAT 98
[2024-06-03] MEDS: hydrOXYzine HCL 25 MG TABLET PO (20:22)
[2024-06-03] MEDS: QUEtiapine Fumarate 300 MG TABLET PO (20:22)
[2024-06-03] MEDS: traZODone HCL 100 MG TABLET PO (20:22)
[2024-06-03] MEDS: HaloperidoL 1 MG TABLET 2 MG PO (20:22)
[2024-06-03] MEDS: Gabapentin 400 MG CAPSULE 800 MG PO (20:22)
[2024-06-04] MEDS: methADONE HCl 20 MG/2 ML ORAL.CONC 152 MG PO (07:48)
[2024-06-04] MEDS: Nicotine Polacrilex 2 MG GUM 4 MG BUCCAL ×4 (07:50→19:38)
[2024-06-04] MEDS: Acetaminophen 325 MG TABLET 650 MG PO (07:51)
[2024-06-04 08:00] VITALS: BP 130/64; PULSE 81; TEMP 36.2; O2SAT 98
[2024-06-04] MEDS: Nicotine 14 MG PATCH.TD24 TRANSDERMA (08:19)
[2024-06-04] MEDS: Venlafaxine HCl ER 150 MG CAP.ER.24H PO (08:20)
[2024-06-04] MEDS: Topiramate 100 MG TABLET 200 MG PO (08:20)
[2024-06-04] MEDS: Gabapentin 600 MG TABLET PO ×3 (08:20→17:03)
[2024-06-04] MEDS: clonazePAM 1 MG TABLET PO ×3 (08:20→17:03)
[2024-06-04] MEDS: QUEtiapine Fumarate 50 MG TABLET PO ×3 (08:20→15:17)
--- NOTE | 2024-06-04 10:38 | P.PNPSI_ITS ---
Subjective Subjective Date of Service: 06/04/24 Reason For Visit: SI / Hallucinations Subjective Notes: Conditional Voluntary Healthcare Proxy: No Guardianship: No Medical Problems Affecting Mental Status: No Interim History: Weekend med increase of Venlafaxne. DC of Risperdal with a change to Haldol. Pt not accepted to [facility] today due to a lack of bed availability. She reports she no longer has an apartment as father is closing it down. She reports he has told her she needs to complete a post discharge rehab program and then he will help her with housing and finances. [facility] Where ever you want me to go. Medication Compliance: Yes Side effects from medications: No (adjusting to dosing on both Venalafaxine and Haldol) Attending Groups: Intermittent Review of Systems Acute medical concerns: No Review of Systems Review of Systems denies Mental Status Exam Mental Status Exam Patient Appearance: Appropriate Patient Orientation: Person, Place, Time and Situation Level of Consciousness: Alert Patient Behavior: Talkative and Good Eye Contact Mood Description: Depressed and Anxious Affect Description: Flat Patient Cognition Impaired: No Ability to Follow Directions: Fair Speech Pattern: Spontaneous Speech Memory Description: Remote Impaired and Episodic Impaired Hallucinations: Auditory and Visual Delusions: Present Thought Process: Rumination Thought Content: positive for Circumstantial and positive for Suicidal Ideation (passive, no intent, no plan) Depressive Symptoms: Increased Anxiety and Thoughts of /Suicide (passive) Judgement: Fair Diagnostics Vital Signs (24Hr): Vital Signs - 24 hr 06/03/24 19:44 06/04/24 08:00 Temperature 98.7 F 97.2 F Pulse Rate 97 81 Respiratory Rate 16 Blood Pressure 110/72 130/64 Pulse Oximetry 98 98 Oxygen Delivery Method Room Air Room Air BMI result Body Mass Index 25.1 Medications Medications Current Medications Acetaminophen (Acetaminophen 325 Mg Tablet) 650 mg PO Q6H PRN PRN Reason: Headache/Pain, Scale 1-10 Last Admin: 06/04/24 07:51 Dose: 650 mg Al Hydroxide/Mg Hydroxide (Magnesium Hydrox/Alum Hydrox 30 Ml Oral.Susp) 30 ml PO Q6H PRN PRN Reason: Heartburn/Nausea Last Admin: 05/26/24 17:57 Dose: 30 ml Clonazepam (Clonazepam 1 Mg Tablet) 1 mg PO 0900,1300,1800 [facility] Last Admin: 06/04/24 08:20 Dose: 1 mg Docusate Sodium (Docusate Sodium 100 Mg Capsule) 100 mg PO BID PRN PRN Reason: Constipation Last Admin: 06/03/24 14:59 Dose: 100 mg Gabapentin (Gabapentin 600 Mg Tablet) 600 mg PO 0900,1300,1800 [facility] Last Admin: 06/04/24 08:20 Dose: 600 mg Gabapentin (Gabapentin 400 Mg Capsule) 800 mg PO BEDTIME [facility] Last Admin: 06/03/24 20:22 Dose: 800 mg Haloperidol (Haloperidol 1 Mg Tablet) 2 mg PO BEDTIME [facility] Last Admin: 06/03/24 20:22 Dose: 2 mg Hydroxyzine HCl (Hydroxyzine Hcl 25 Mg Tablet) 25 mg PO Q6H PRN PRN Reason: mild anxiety Last Admin: 06/03/24 20:22 Dose: 25 mg Magnesium Hydroxide (Milk Of Magnesia 30 Ml Oral.Susp) 30 ml PO DAILY PRN PRN Reason: Constipation Last Admin: 06/01/24 19:07 Dose: 30 ml Methadone HCl (Methadone Hcl 20 Mg/2 Ml Oral.Conc) 152 mg PO DAILY@0800 [facility] Last Admin: 06/04/24 07:48 Dose: 152 mg Nicotine (Nicotine 14 Mg Patch.Td24) 14 mg TRANSDERMA DAILY [facility] Last Admin: 06/04/24 08:19 Dose: 14 mg Nicotine Polacrilex (Nicotine Polacrilex 2 Mg Gum) 4 mg BUCCAL Q2H PRN PRN Reason: Nicotine Cravings Last Admin: 06/04/24 07:50 Dose: 4 mg Quetiapine Fumarate (Quetiapine Fumarate 50 Mg Tablet) 50 mg PO TID PRN PRN Reason: severe anxiety Last Admin: 06/01/24 22:49 Dose: 50 mg Quetiapine Fumarate (Quetiapine Fumarate 300 Mg Tablet) 300 mg PO BEDTIME [facility] Last Admin: 06/03/24 20:22 Dose: 300 mg Quetiapine Fumarate (Quetiapine Fumarate 50 Mg Tablet) 50 mg PO TID [facility] Last Admin: 06/04/24 08:20 Dose: 50 mg Senna/Docusate Sodium (Sennosides/Docusate Sodium Tablet) 2 tab PO DAILY PRN PRN Reason: Constipation Last Admin: 06/02/24 08:01 Dose: 2 tab Topiramate (Topiramate 100 Mg Tablet) 200 mg PO DAILY [facility] Last Admin: 06/04/24 08:20 Dose: 200 mg Trazodone HCl (Trazodone Hcl 100 Mg Tablet) 100 mg PO BEDTIME [facility] Last Admin: 06/03/24 20:22 Dose: 100 mg Venlafaxine HCl (Venlafaxine Hcl Er 150 Mg Cap.Er.24h) 150 mg PO DAILY [facility] Last Admin: 06/04/24 08:20 Dose: 150 mg Allergies Allergies Allergy/AdvReac Type Severity Reaction Status Date / Time lamotrigine [From Lamictal] AdvReac Unknown Rash Verified 05/26/24 07:01 Assessment & Plan Assessment & Plan (1) Bipolar disorder with psychotic features: Status: Acute Code(s): F31.9 - Bipolar disorder, unspecified (2) Polysubstance use disorder: Status: Acute Code(s): F19.90 - Other psychoactive substance use, unspecified, uncomplicated Plan Admit, 15 minute checks INCreased Effexor XL to 150mg (remains depressed) Collateral contact Diagnostics as needed Re-start regime, ?pt may need another antipsychotic which was discussed Discharge planning 05/28: continue regime 05/29: Pt reports feeling anxious and depressed; feeling increased stress d/t thinking about staying with my dad until I find my own apartment . She reports visual hallucinations of people that I don't know ; pt reports she only see them in the morning and then they fade away . denies SI/HI/AH. She reports poor sleep last night d/t increased anxiety. Continue current tx plan. 06/01: Continue regime/plan. Assess for residential treatment potential. Pt asks about [facility]. 06/02 mood is kind of depressed, no improvement; SI remains. Discussed meds and she agrees to increase Effexor (was on 150mg for 2 days before this admission); says VH only ever occur when she wakes up from sleep; otherwise none 06/03 Patient feels overly sedated by risperidone. It did help decrease VH in the morning but the sedation was overwhelming and even caused her to wet the bed. Discussed her experience a VH and for about 10 years, every time she wakes up in the morning, she will see people, typically celebrities. They never speak to her, she knows they are not real, and they remain for about 10 or 15 minutes and then disappear. Happens more frequently than not. No AH at all and otherwise denies any other history of VH. It is distressing to her since she knows they are not real. Discussed options including going up on the Seroquel and patient would like to try haloperidol instead since it might be less sedating. Advanced Manufacturing Engineer reviewed risks/side effects of being on Haldol including with additional Seroquel -dc Risperdal -add Haldol 2mg qhs (may instead consider increasing Seroquel instead of adding Haldol) 06/04: Continue current plan/regime. Reason for continued inpatient stay Substantial Risk for: rapid decompensation Time Spent With Patient Time: Total time managing care of this patient today ____ minutes.
[2024-06-04 20:00] VITALS: BP 142/64; PULSE 90; TEMP 36.9; O2SAT 97
[2024-06-04] MEDS: HaloperidoL 1 MG TABLET 2 MG PO (20:12)
[2024-06-04] MEDS: Gabapentin 400 MG CAPSULE 800 MG PO (20:12)
[2024-06-04] MEDS: traZODone HCL 100 MG TABLET PO (20:13)
[2024-06-04] MEDS: QUEtiapine Fumarate 300 MG TABLET PO (20:13)
[2024-06-05] MEDS: methADONE HCl 20 MG/2 ML ORAL.CONC 152 MG PO (07:52)
[2024-06-05 08:00] VITALS: BP 113/60; PULSE 80; RESP 18; TEMP 36.5; O2SAT 98
[2024-06-05] MEDS: Nicotine 14 MG PATCH.TD24 TRANSDERMA (08:38)
[2024-06-05] MEDS: Venlafaxine HCl ER 150 MG CAP.ER.24H PO (08:39)
[2024-06-05] MEDS: clonazePAM 1 MG TABLET PO ×3 (08:39→17:45)
[2024-06-05] MEDS: Topiramate 100 MG TABLET 200 MG PO (08:39)
[2024-06-05] MEDS: Gabapentin 600 MG TABLET PO ×3 (08:50→17:45)
[2024-06-05] MEDS: Nicotine Polacrilex 2 MG GUM 4 MG BUCCAL ×6 (08:51→19:31)
--- NOTE | 2024-06-05 12:17 | HO.PSYCHPN ---
Subjective Subjective Date of Service: 06/05/24 Reason For Visit: SI / Hallucinations Subjective Notes: Conditional Voluntary Healthcare Proxy: No Guardianship: No Medical Problems Affecting Mental Status: No Interim History: Discussed anxiety about not having a placement, hoping for a placement away from [place]. Team has applied to several programs, however we have not received a response. Pt has asked her father to close her apartment, so she may need group home referral. Review of medications-seroquel, haldol with adjustments. Medication Compliance: Yes Side effects from medications: Yes (sedation, although pt denies) Attending Groups: Intermittent Review of Systems Acute medical concerns: No Review of Systems Review of Systems Yes all other systems are reviewed and are negative Mental Status Exam Mental Status Exam Patient Appearance: Appropriate Patient Orientation: Person, Place, Time and Situation Level of Consciousness: Alert Patient Behavior: Talkative and Good Eye Contact Mood Description: Depressed and Anxious Affect Description: Flat Patient Cognition Impaired: No Ability to Follow Directions: Fair Speech Pattern: Spontaneous Speech Memory Description: Remote Impaired and Episodic Impaired Hallucinations: None Delusions: Present Thought Process: Rumination Thought Content: positive for Circumstantial and positive for Suicidal Ideation (passive, no intent, no plan) Depressive Symptoms: Increased Anxiety and Thoughts of /Suicide (passive) Judgement: Fair Diagnostics Vital Signs (24Hr): Vital Signs - 24 hr 06/04/24 20:00 06/05/24 08:00 Temperature 98.4 F 97.7 F Pulse Rate 90 80 Respiratory Rate 18 Blood Pressure 142/64 H 113/60 Pulse Oximetry 97 98 Oxygen Delivery Method Room Air Room Air BMI result Body Mass Index 25.1 Medications Medications Current Medications Acetaminophen (Acetaminophen 325 Mg Tablet) 650 mg PO Q6H PRN PRN Reason: Headache/Pain, Scale 1-10 Last Admin: 06/04/24 07:51 Dose: 650 mg Al Hydroxide/Mg Hydroxide (Magnesium Hydrox/Alum Hydrox 30 Ml Oral.Susp) 30 ml PO Q6H PRN PRN Reason: Heartburn/Nausea Last Admin: 05/26/24 17:57 Dose: 30 ml Clonazepam (Clonazepam 1 Mg Tablet) 1 mg PO 0900,1300,1800 [facility] Last Admin: 06/05/24 08:39 Dose: 1 mg Docusate Sodium (Docusate Sodium 100 Mg Capsule) 100 mg PO BID PRN PRN Reason: Constipation Last Admin: 06/03/24 14:59 Dose: 100 mg Gabapentin (Gabapentin 600 Mg Tablet) 600 mg PO 0900,1300,1800 [facility] Last Admin: 06/05/24 08:50 Dose: 600 mg Gabapentin (Gabapentin 400 Mg Capsule) 800 mg PO BEDTIME [facility] Last Admin: 06/04/24 20:12 Dose: 800 mg Haloperidol (Haloperidol 1 Mg Tablet) 2 mg PO BEDTIME [facility] Last Admin: 06/04/24 20:12 Dose: 2 mg Hydroxyzine HCl (Hydroxyzine Hcl 25 Mg Tablet) 25 mg PO Q6H PRN PRN Reason: mild anxiety Last Admin: 06/03/24 20:22 Dose: 25 mg Magnesium Hydroxide (Milk Of Magnesia 30 Ml Oral.Susp) 30 ml PO DAILY PRN PRN Reason: Constipation Last Admin: 06/01/24 19:07 Dose: 30 ml Methadone HCl (Methadone Hcl 20 Mg/2 Ml Oral.Conc) 152 mg PO DAILY@0800 [facility] Last Admin: 06/05/24 07:52 Dose: 152 mg Nicotine (Nicotine 14 Mg Patch.Td24) 14 mg TRANSDERMA DAILY [facility] Last Admin: 06/05/24 08:38 Dose: 14 mg Nicotine Polacrilex (Nicotine Polacrilex 2 Mg Gum) 4 mg BUCCAL Q2H PRN PRN Reason: Nicotine Cravings Last Admin: 06/05/24 10:40 Dose: 4 mg Quetiapine Fumarate (Quetiapine Fumarate 50 Mg Tablet) 50 mg PO TID PRN PRN Reason: severe anxiety Last Admin: 06/04/24 12:50 Dose: 50 mg Quetiapine Fumarate (Quetiapine Fumarate 300 Mg Tablet) 300 mg PO BEDTIME [facility] Last Admin: 06/04/24 20:13 Dose: 300 mg Quetiapine Fumarate (Quetiapine Fumarate 50 Mg Tablet) 50 mg PO TID [facility] Last Admin: 06/05/24 08:57 Dose: Not Given Senna/Docusate Sodium (Sennosides/Docusate Sodium Tablet) 2 tab PO DAILY PRN PRN Reason: Constipation Last Admin: 06/02/24 08:01 Dose: 2 tab Topiramate (Topiramate 100 Mg Tablet) 200 mg PO DAILY [facility] Last Admin: 06/05/24 08:39 Dose: 200 mg Trazodone HCl (Trazodone Hcl 100 Mg Tablet) 100 mg PO BEDTIME [facility] Last Admin: 06/04/24 20:13 Dose: 100 mg Venlafaxine HCl (Venlafaxine Hcl Er 150 Mg Cap.Er.24h) 150 mg PO DAILY [facility] Last Admin: 06/05/24 08:39 Dose: 150 mg Allergies Allergies Allergy/AdvReac Type Severity Reaction Status Date / Time lamotrigine [From Lamictal] AdvReac Unknown Rash Verified 05/26/24 07:01 Assessment & Plan Assessment & Plan (1) Bipolar disorder with psychotic features: Status: Acute Code(s): F31.9 - Bipolar disorder, unspecified (2) Polysubstance use disorder: Status: Acute Code(s): F19.90 - Other psychoactive substance use, unspecified, uncomplicated Plan Admit, 15 minute checks INCreased Effexor XL to 150mg (remains depressed) Collateral contact Diagnostics as needed Re-start regime, ?pt may need another antipsychotic which was discussed Discharge planning 05/28: continue regime 05/29: Pt reports feeling anxious and depressed; feeling increased stress d/t thinking about staying with my dad until I find my own apartment . She reports visual hallucinations of people that I don't know ; pt reports she only see them in the morning and then they fade away . denies SI/HI/AH. She reports poor sleep last night d/t increased anxiety. Continue current tx plan. 06/01: Continue regime/plan. Assess for residential treatment potential. Pt asks about [facility]. 06/02 mood is kind of depressed, no improvement; SI remains. Discussed meds and she agrees to increase Effexor (was on 150mg for 2 days before this admission); says VH only ever occur when she wakes up from sleep; otherwise none 06/03 Patient feels overly sedated by risperidone. It did help decrease VH in the morning but the sedation was overwhelming and even caused her to wet the bed. Discussed her experience a VH and for about 10 years, every time she wakes up in the morning, she will see people, typically celebrities. They never speak to her, she knows they are not real, and they remain for about 10 or 15 minutes and then disappear. Happens more frequently than not. No AH at all and otherwise denies any other history of VH. It is distressing to her since she knows they are not real. Discussed options including going up on the Seroquel and patient would like to try haloperidol instead since it might be less sedating. Sprue Knocker reviewed risks/side effects of being on Haldol including with additional Seroquel -dc Risperdal -add Haldol 2mg qhs (may instead consider increasing Seroquel instead of adding Haldol) 06/04: Continue current plan/regime. 06/05: Increase Haldol to 5 mg HS Decrease Seroquel to 200 mg HS Reason for continued inpatient stay Substantial Risk for: rapid decompensation Time Spent With Patient Time: Total time managing care of this patient today ____ minutes.
[2024-06-05 20:00] VITALS: BP 129/62; PULSE 75; RESP 18; TEMP 36.8; O2SAT 100
[2024-06-05] MEDS: Gabapentin 400 MG CAPSULE 800 MG PO (20:38)
[2024-06-05] MEDS: QUEtiapine Fumarate 200 MG TABLET PO (20:39)
[2024-06-05] MEDS: HaloperidoL 5 MG TABLET PO (20:40)
[2024-06-05] MEDS: traZODone HCL 100 MG TABLET PO (20:42)
[2024-06-05 20:43] VITALS: BP 129/62
[2024-06-05] MEDS: cloNIDine HCL 0.1 MG TABLET PO (20:43)
[2024-06-06] MEDS: methADONE HCl 20 MG/2 ML ORAL.CONC 152 MG PO (07:47)
[2024-06-06 08:00] VITALS: BP 120/68; PULSE 85; RESP 16; TEMP 36.6; O2SAT 98
[2024-06-06] MEDS: Topiramate 100 MG TABLET 200 MG PO (08:23)
[2024-06-06] MEDS: Venlafaxine HCl ER 150 MG CAP.ER.24H PO (08:23)
[2024-06-06] MEDS: clonazePAM 1 MG TABLET PO ×2 (08:23→17:13)
[2024-06-06] MEDS: Nicotine 14 MG PATCH.TD24 TRANSDERMA (08:23)
[2024-06-06] MEDS: Gabapentin 600 MG TABLET PO ×3 (08:23→17:13)
[2024-06-06] MEDS: cloNIDine HCL 0.1 MG TABLET PO (08:47)
[2024-06-06] MEDS: Nicotine Polacrilex 2 MG GUM 4 MG BUCCAL ×4 (09:05→20:44)
--- NOTE | 2024-06-06 10:31 | P.PNPSI_ITS ---
Subjective Subjective Date of Service: 06/06/24 Reason For Visit: SI / Hallucinations Subjective Notes: Conditional Voluntary Healthcare Proxy: No Guardianship: No Medical Problems Affecting Mental Status: No Interim History: Pt reports no residential treatment options as yet. Living with her father is not an option at this time. Urine samples sent to re-test for UTI/BV. Today, pt observed in group, sound asleep. Medicines were reviewed and decreased-Klonopin, Seroquel. Discussed with pt as a direct intervention due to observed level of sedation. She verbalized understanding. She is very concerned about being referred to a senior living and is hoping for program acceptance. Medication Compliance: Yes Side effects from medications: Yes (sedation) Attending Groups: Yes Review of Systems Acute medical concerns: No Review of Systems Review of Systems denies Mental Status Exam Mental Status Exam Patient Appearance: Appropriate Patient Orientation: Person, Place, Time and Situation Level of Consciousness: Sedated and Alert Patient Behavior: Talkative and Good Eye Contact Mood Description: Depressed and Anxious Affect Description: Flat Patient Cognition Impaired: No Ability to Follow Directions: Fair Speech Pattern: Spontaneous Speech Memory Description: Remote Impaired and Episodic Impaired Hallucinations: None Delusions: Present Thought Process: Rumination Thought Content: positive for Circumstantial and positive for Suicidal Ideation (passive, no intent, no plan) Depressive Symptoms: Increased Anxiety and Thoughts of /Suicide (passive) Judgement: Fair Diagnostics Vital Signs (24Hr): Vital Signs - 24 hr 06/05/24 20:00 06/05/24 20:43 06/06/24 08:00 Temperature 98.2 F 97.8 F Pulse Rate 75 85 Respiratory Rate 18 16 Blood Pressure 129/62 129/62 120/68 Pulse Oximetry 100 98 Oxygen Delivery Method Room Air Room Air BMI result Body Mass Index 25.1 Medications Medications Current Medications Acetaminophen (Acetaminophen 325 Mg Tablet) 650 mg PO Q6H PRN PRN Reason: Headache/Pain, Scale 1-10 Last Admin: 06/04/24 07:51 Dose: 650 mg Al Hydroxide/Mg Hydroxide (Magnesium Hydrox/Alum Hydrox 30 Ml Oral.Susp) 30 ml PO Q6H PRN PRN Reason: Heartburn/Nausea Last Admin: 05/26/24 17:57 Dose: 30 ml Clonazepam (Clonazepam 1 Mg Tablet) 1 mg PO 0900,1300,1800 [facility] Last Admin: 06/06/24 08:23 Dose: 1 mg Clonidine HCl (Clonidine Hcl 0.1 Mg Tablet) 0.1 mg PO TID PRN; Protocol PRN Reason: anxiety Last Admin: 06/06/24 08:47 Dose: 0.1 mg Docusate Sodium (Docusate Sodium 100 Mg Capsule) 100 mg PO BID PRN PRN Reason: Constipation Last Admin: 06/03/24 14:59 Dose: 100 mg Gabapentin (Gabapentin 600 Mg Tablet) 600 mg PO 0900,1300,1800 [facility] Last Admin: 06/06/24 08:23 Dose: 600 mg Gabapentin (Gabapentin 400 Mg Capsule) 800 mg PO BEDTIME [facility] Last Admin: 06/05/24 20:38 Dose: 800 mg Haloperidol (Haloperidol 5 Mg Tablet) 5 mg PO BEDTIME [facility] Last Admin: 06/05/24 20:40 Dose: 5 mg Magnesium Hydroxide (Milk Of Magnesia 30 Ml Oral.Susp) 30 ml PO DAILY PRN PRN Reason: Constipation Last Admin: 06/01/24 19:07 Dose: 30 ml Methadone HCl (Methadone Hcl 20 Mg/2 Ml Oral.Conc) 152 mg PO DAILY@0800 [facility] Last Admin: 06/06/24 07:47 Dose: 152 mg Nicotine (Nicotine 14 Mg Patch.Td24) 14 mg TRANSDERMA DAILY [facility] Last Admin: 06/06/24 08:23 Dose: 14 mg Nicotine Polacrilex (Nicotine Polacrilex 2 Mg Gum) 4 mg BUCCAL Q2H PRN PRN Reason: Nicotine Cravings Last Admin: 06/06/24 09:05 Dose: 4 mg Quetiapine Fumarate (Quetiapine Fumarate 50 Mg Tablet) 50 mg PO TID PRN PRN Reason: severe anxiety Last Admin: 06/04/24 12:50 Dose: 50 mg Quetiapine Fumarate (Quetiapine Fumarate 200 Mg Tablet) 200 mg PO BEDTIME [facility] Last Admin: 06/05/24 20:39 Dose: 200 mg Senna/Docusate Sodium (Sennosides/Docusate Sodium Tablet) 2 tab PO DAILY PRN PRN Reason: Constipation Last Admin: 06/02/24 08:01 Dose: 2 tab Topiramate (Topiramate 100 Mg Tablet) 200 mg PO DAILY [facility] Last Admin: 06/06/24 08:23 Dose: 200 mg Trazodone HCl (Trazodone Hcl 100 Mg Tablet) 100 mg PO BEDTIME [facility] Last Admin: 06/05/24 20:42 Dose: 100 mg Venlafaxine HCl (Venlafaxine Hcl Er 150 Mg Cap.Er.24h) 150 mg PO DAILY [facility] Last Admin: 06/06/24 08:23 Dose: 150 mg Allergies Allergies Allergy/AdvReac Type Severity Reaction Status Date / Time lamotrigine [From Lamictal] AdvReac Unknown Rash Verified 05/26/24 07:01 Assessment & Plan Assessment & Plan (1) Bipolar disorder with psychotic features: Status: Acute Code(s): F31.9 - Bipolar disorder, unspecified (2) Polysubstance use disorder: Status: Acute Code(s): F19.90 - Other psychoactive substance use, unspecified, uncomplicated Plan Admit, 15 minute checks INCreased Effexor XL to 150mg (remains depressed) Collateral contact Diagnostics as needed Re-start regime, ?pt may need another antipsychotic which was discussed Discharge planning 05/28: continue regime 05/29: Pt reports feeling anxious and depressed; feeling increased stress d/t thinking about staying with my dad until I find my own apartment . She reports visual hallucinations of people that I don't know ; pt reports she only see them in the morning and then they fade away . denies SI/HI/AH. She reports poor sleep last night d/t increased anxiety. Continue current tx plan. 06/01: Continue regime/plan. Assess for residential treatment potential. Pt asks about [facility]. 06/02 mood is kind of depressed, no improvement; SI remains. Discussed meds and she agrees to increase Effexor (was on 150mg for 2 days before this admission); says VH only ever occur when she wakes up from sleep; otherwise none 06/03 Patient feels overly sedated by risperidone. It did help decrease VH in the morning but the sedation was overwhelming and even caused her to wet the bed. Discussed her experience a VH and for about 10 years, every time she wakes up in the morning, she will see people, typically celebrities. They never speak to her, she knows they are not real, and they remain for about 10 or 15 minutes and then disappear. Happens more frequently than not. No AH at all and otherwise denies any other history of VH. It is distressing to her since she knows they are not real. Discussed options including going up on the Seroquel and patient would like to try haloperidol instead since it might be less sedating. Production Support Specialist reviewed risks/side effects of being on Haldol including with additional Seroquel -dc Risperdal -add Haldol 2mg qhs (may instead consider increasing Seroquel instead of adding Haldol) 06/04: Continue current plan/regime. 06/06: Decrease Seroquel to 150 mg HS Klonopin initially decreased, but returned to regular dose as pt reports being on this dose for several years. Reason for continued inpatient stay Substantial Risk for: rapid decompensation Time Spent With Patient Time: Total time managing care of this patient today ____ minutes.
[2024-06-06] MEDS: clonazePAM 0.5 MG TABLET PO (12:20)
[2024-06-06 13:47] LABS: Bacterial Vaginosis PCR NEGATIVE (Negative); Candida Group PCR NOT DETECTED (Not Detect); Candida glab krusei PCR NOT DETECTED (Not Detect); Trichomonas vaginalis PCR NOT DETECTED (Not Detect)
[2024-06-06 20:00] VITALS: BP 119/58; PULSE 71; RESP 16; TEMP 36.9; O2SAT 99
[2024-06-06] MEDS: Gabapentin 400 MG CAPSULE 800 MG PO (20:45)
[2024-06-06] MEDS: QUEtiapine Fumarate 50 MG TABLET 150 MG PO (20:46)
[2024-06-06] MEDS: traZODone HCL 100 MG TABLET PO (20:46)
[2024-06-06] MEDS: HaloperidoL 5 MG TABLET PO (20:46)
[2024-06-06] MEDS: Acetaminophen 325 MG TABLET 650 MG PO (21:03)
[2024-06-07 07:00] VITALS: BMI 27.6
[2024-06-07] MEDS: methADONE HCl 20 MG/2 ML ORAL.CONC 152 MG PO (07:49)
[2024-06-07 08:00] VITALS: BP 118/68; PULSE 86; TEMP 37.3; O2SAT 97
[2024-06-07] MEDS: Nicotine 14 MG PATCH.TD24 TRANSDERMA (08:15)
[2024-06-07] MEDS: Sennosides/Docusate Sodium TABLET 2 TAB PO (08:16)
[2024-06-07] MEDS: Gabapentin 600 MG TABLET PO ×3 (08:16→17:05)
[2024-06-07] MEDS: Topiramate 100 MG TABLET 200 MG PO (08:16)
[2024-06-07] MEDS: clonazePAM 1 MG TABLET PO ×3 (08:16→17:05)
[2024-06-07] MEDS: Venlafaxine HCl ER 150 MG CAP.ER.24H PO (08:16)
[2024-06-07] MEDS: Nicotine Polacrilex 2 MG GUM 4 MG BUCCAL ×6 (09:59→20:55)
[2024-06-07 13:02] VITALS: BP 113/65
[2024-06-07] MEDS: cloNIDine HCL 0.1 MG TABLET PO ×3 (13:02→20:34)
--- NOTE | 2024-06-07 14:30 | P.PNPSI_ITS ---
Subjective Subjective Date of Service: 06/07/24 Reason For Visit: SI / Hallucinations Subjective Notes: Conditional Voluntary Healthcare Proxy: No Guardianship: No Medical Problems Affecting Mental Status: No Interim History: No med questions or concerns today. Monitoring sedation which appears decreased today. Significant worry about placement and if she will be accepted for a residential program to continue treatment. Making calls, asking for resources. Slept nine hours last night. Medication Compliance: Yes Side effects from medications: No Attending Groups: Intermittent Review of Systems Review of Systems denies Mental Status Exam Mental Status Exam Patient Appearance: Appropriate Patient Orientation: Person, Place, Time and Situation Level of Consciousness: Alert Patient Behavior: Talkative and Good Eye Contact Mood Description: Depressed, Anxious and Apprehensive Affect Description: Flat and Apprehensive Patient Cognition Impaired: No Ability to Follow Directions: Fair Speech Pattern: Spontaneous Speech Memory Description: Remote Impaired and Episodic Impaired Hallucinations: None Delusions: Present Thought Process: Rumination Thought Content: positive for Circumstantial and positive for Suicidal Ideation (passive, no intent, no plan) Depressive Symptoms: Increased Anxiety and Thoughts of /Suicide (denies) Judgement: Good Diagnostics Vital Signs (24Hr): Vital Signs - 24 hr 06/06/24 20:00 06/07/24 08:00 06/07/24 13:02 Temperature 98.4 F 99.1 F Pulse Rate 71 86 Respiratory Rate 16 Blood Pressure 119/58 L 118/68 113/65 Pulse Oximetry 99 97 Oxygen Delivery Method Room Air Room Air BMI result Body Mass Index 27.6 Labs Labs: Laboratory Results - last 48 hr 06/06/24 10:48 T. vaginalis (PCR) NOT DETECTED Bact vaginosis (PCR) NEGATIVE C. krusei/glabrata (PCR) NOT DETECTED Nighat group (PCR) NOT DETECTED Medications Medications Current Medications Acetaminophen (Acetaminophen 325 Mg Tablet) 650 mg PO Q6H PRN PRN Reason: Headache/Pain, Scale 1-10 Last Admin: 06/06/24 21:03 Dose: 650 mg Al Hydroxide/Mg Hydroxide (Magnesium Hydrox/Alum Hydrox 30 Ml Oral.Susp) 30 ml PO Q6H PRN PRN Reason: Heartburn/Nausea Last Admin: 05/26/24 17:57 Dose: 30 ml Clonazepam (Clonazepam 1 Mg Tablet) 1 mg PO TID@0900,1300,1800 [facility] Last Admin: 06/07/24 12:05 Dose: 1 mg Clonidine HCl (Clonidine Hcl 0.1 Mg Tablet) 0.1 mg PO TID PRN; Protocol PRN Reason: anxiety Last Admin: 06/07/24 13:02 Dose: 0.1 mg Docusate Sodium (Docusate Sodium 100 Mg Capsule) 100 mg PO BID PRN PRN Reason: Constipation Last Admin: 06/03/24 14:59 Dose: 100 mg Gabapentin (Gabapentin 600 Mg Tablet) 600 mg PO 0900,1300,1800 [facility] Last Admin: 06/07/24 12:04 Dose: 600 mg Gabapentin (Gabapentin 400 Mg Capsule) 800 mg PO BEDTIME [facility] Last Admin: 06/06/24 20:45 Dose: 800 mg Haloperidol (Haloperidol 5 Mg Tablet) 5 mg PO BEDTIME [facility] Last Admin: 06/06/24 20:46 Dose: 5 mg Magnesium Hydroxide (Milk Of Magnesia 30 Ml Oral.Susp) 30 ml PO DAILY PRN PRN Reason: Constipation Last Admin: 06/01/24 19:07 Dose: 30 ml Methadone HCl (Methadone Hcl 20 Mg/2 Ml Oral.Conc) 152 mg PO DAILY@0800 [facility] Last Admin: 06/07/24 07:49 Dose: 152 mg Nicotine (Nicotine 14 Mg Patch.Td24) 14 mg TRANSDERMA DAILY [facility] Last Admin: 06/07/24 08:15 Dose: 14 mg Nicotine Polacrilex (Nicotine Polacrilex 2 Mg Gum) 4 mg BUCCAL Q2H PRN PRN Reason: Nicotine Cravings Last Admin: 06/07/24 13:02 Dose: 4 mg Quetiapine Fumarate (Quetiapine Fumarate 50 Mg Tablet) 50 mg PO TID PRN PRN Reason: severe anxiety Last Admin: 06/04/24 12:50 Dose: 50 mg Quetiapine Fumarate (Quetiapine Fumarate 50 Mg Tablet) 150 mg PO BEDTIME [facility] Last Admin: 06/06/24 20:46 Dose: 150 mg Senna/Docusate Sodium (Sennosides/Docusate Sodium Tablet) 2 tab PO DAILY PRN PRN Reason: Constipation Last Admin: 06/07/24 08:16 Dose: 2 tab Topiramate (Topiramate 100 Mg Tablet) 200 mg PO DAILY [facility] Last Admin: 06/07/24 08:16 Dose: 200 mg Trazodone HCl (Trazodone Hcl 100 Mg Tablet) 100 mg PO BEDTIME [facility] Last Admin: 06/06/24 20:46 Dose: 100 mg Venlafaxine HCl (Venlafaxine Hcl Er 150 Mg Cap.Er.24h) 150 mg PO DAILY [facility] Last Admin: 06/07/24 08:16 Dose: 150 mg Allergies Allergies Allergy/AdvReac Type Severity Reaction Status Date / Time lamotrigine [From Lamictal] AdvReac Unknown Rash Verified 05/26/24 07:01 Assessment & Plan Assessment & Plan (1) Bipolar disorder with psychotic features: Status: Acute Code(s): F31.9 - Bipolar disorder, unspecified (2) Polysubstance use disorder: Status: Acute Code(s): F19.90 - Other psychoactive substance use, unspecified, uncomplicated Plan Admit, 15 minute checks INCreased Effexor XL to 150mg (remains depressed) Collateral contact Diagnostics as needed Re-start regime, ?pt may need another antipsychotic which was discussed Discharge planning 05/28: continue regime 05/29: Pt reports feeling anxious and depressed; feeling increased stress d/t thinking about staying with my dad until I find my own apartment . She reports visual hallucinations of people that I don't know ; pt reports she only see them in the morning and then they fade away . denies SI/HI/AH. She reports poor sleep last night d/t increased anxiety. Continue current tx plan. 06/01: Continue regime/plan. Assess for residential treatment potential. Pt asks about [facility]. 06/02 mood is kind of depressed, no improvement; SI remains. Discussed meds and she agrees to increase Effexor (was on 150mg for 2 days before this admission); says VH only ever occur when she wakes up from sleep; otherwise none 06/03 Patient feels overly sedated by risperidone. It did help decrease VH in the morning but the sedation was overwhelming and even caused her to wet the bed. Discussed her experience a VH and for about 10 years, every time she wakes up in the morning, she will see people, typically celebrities. They never speak to her, she knows they are not real, and they remain for about 10 or 15 minutes and then disappear. Happens more frequently than not. No AH at all and otherwise denies any other history of VH. It is distressing to her since she knows they are not real. Discussed options including going up on the Seroquel and patient would like to try haloperidol instead since it might be less sedating. Exchange Specialist reviewed risks/side effects of being on Haldol including with additional Seroquel -dc Risperdal -add Haldol 2mg qhs (may instead consider increasing Seroquel instead of adding Haldol) 06/04: Continue current plan/regime. 06/06: Decrease Seroquel to 150 mg HS Klonopin initially decreased, but returned to regular dose as pt reports being on this dose for several years. 06/07 Continue current plan Reason for continued inpatient stay Substantial Risk for: rapid decompensation Time Spent With Patient Time: Total time managing care of this patient today ____ minutes.
[2024-06-07] MEDS: Magnesium Hydrox/Alum Hydrox 30 ML ORAL.SUSP PO (15:21)
[2024-06-07 17:00] VITALS: BP 126/69
[2024-06-07] MEDS: Loperamide HCl 2 MG CAPSULE 4 MG PO ×2 (18:44→22:35)
[2024-06-07 19:53] VITALS: BP 139/65; PULSE 76; TEMP 36.7; O2SAT 99
[2024-06-07] MEDS: Gabapentin 400 MG CAPSULE 800 MG PO (20:34)
[2024-06-07] MEDS: QUEtiapine Fumarate 50 MG TABLET 150 MG PO (20:34)
[2024-06-07] MEDS: HaloperidoL 5 MG TABLET PO (20:34)
[2024-06-07] MEDS: traZODone HCL 100 MG TABLET PO (20:34)
[2024-06-08] MEDS: methADONE HCl 20 MG/2 ML ORAL.CONC 152 MG PO (08:07)
[2024-06-08] MEDS: Loperamide HCl 2 MG CAPSULE 4 MG PO ×3 (08:08→18:09)
[2024-06-08 08:51] VITALS: BP 105/58; PULSE 80; TEMP 37; O2SAT 98
[2024-06-08] MEDS: Nicotine 14 MG PATCH.TD24 TRANSDERMA (09:00)
[2024-06-08] MEDS: Topiramate 100 MG TABLET 200 MG PO (09:01)
[2024-06-08] MEDS: Venlafaxine HCl ER 150 MG CAP.ER.24H PO (09:01)
[2024-06-08] MEDS: clonazePAM 1 MG TABLET PO ×3 (09:01→18:10)
[2024-06-08] MEDS: Gabapentin 600 MG TABLET PO ×3 (09:02→18:09)
[2024-06-08] MEDS: Nicotine Polacrilex 2 MG GUM 4 MG BUCCAL ×5 (09:02→20:33)
[2024-06-08] MEDS: QUEtiapine Fumarate 50 MG TABLET PO ×2 (09:02→18:10)
--- NOTE | 2024-06-08 11:17 | P.PNPSI_ITS ---
Subjective Subjective Date of Service: 06/08/24 Reason For Visit: SI / Hallucinations Subjective Notes: Conditional Voluntary Healthcare Proxy: No Guardianship: No Medical Problems Affecting Mental Status: No Interim History: Pt reports episodes of vomiting and diarrhea with relief from Imodium. Reports feeling improved this afternoon. Continues to await work on program acceptance. Reports apprehension. Discussed return of Seroquel to 200 mg. Pt reports she sleeps better on a higher dose. Will trial and continue to monitor for sedation. Medication Compliance: Yes Side effects from medications: No Attending Groups: No Review of Systems Acute medical concerns: No Review of Systems Review of Systems vomiting, diarrhea today Mental Status Exam Mental Status Exam Patient Appearance: Appropriate Patient Orientation: Person, Place, Time and Situation Level of Consciousness: Alert Patient Behavior: Talkative and Good Eye Contact Mood Description: Depressed, Anxious and Apprehensive Affect Description: Flat and Apprehensive Patient Cognition Impaired: No Ability to Follow Directions: Fair Speech Pattern: Spontaneous Speech Memory Description: Remote Impaired and Episodic Impaired Hallucinations: None Delusions: Present Thought Process: Rumination Thought Content: positive for Circumstantial Depressive Symptoms: Increased Anxiety Judgement: Good Diagnostics Vital Signs (24Hr): Vital Signs - 24 hr 06/07/24 13:02 06/07/24 17:00 06/07/24 19:53 Temperature 98.0 F Pulse Rate 76 Blood Pressure 113/65 126/69 139/65 Pulse Oximetry 99 Oxygen Delivery Method Room Air 06/08/24 08:51 Temperature 98.6 F Pulse Rate 80 Blood Pressure 105/58 L Pulse Oximetry 98 Oxygen Delivery Method Room Air BMI result Body Mass Index 27.6 Labs Labs: Laboratory Results - last 48 hr 06/06/24 10:48 T. vaginalis (PCR) NOT DETECTED Bact vaginosis (PCR) NEGATIVE C. krusei/glabrata (PCR) NOT DETECTED Nighat group (PCR) NOT DETECTED Medications Medications Current Medications Acetaminophen (Acetaminophen 325 Mg Tablet) 650 mg PO Q6H PRN PRN Reason: Headache/Pain, Scale 1-10 Last Admin: 06/06/24 21:03 Dose: 650 mg Al Hydroxide/Mg Hydroxide (Magnesium Hydrox/Alum Hydrox 30 Ml Oral.Susp) 30 ml PO Q6H PRN PRN Reason: Heartburn/Nausea Last Admin: 06/07/24 15:21 Dose: 30 ml Clonazepam (Clonazepam 1 Mg Tablet) 1 mg PO TID@0900,1300,1800 [facility] Last Admin: 06/08/24 09:01 Dose: 1 mg Clonidine HCl (Clonidine Hcl 0.1 Mg Tablet) 0.1 mg PO TID PRN; Protocol PRN Reason: anxiety Last Admin: 06/07/24 20:34 Dose: 0.1 mg Docusate Sodium (Docusate Sodium 100 Mg Capsule) 100 mg PO BID PRN PRN Reason: Constipation Last Admin: 06/03/24 14:59 Dose: 100 mg Gabapentin (Gabapentin 600 Mg Tablet) 600 mg PO 0900,1300,1800 [facility] Last Admin: 06/08/24 09:02 Dose: 600 mg Gabapentin (Gabapentin 400 Mg Capsule) 800 mg PO BEDTIME [facility] Last Admin: 06/07/24 20:34 Dose: 800 mg Haloperidol (Haloperidol 5 Mg Tablet) 5 mg PO BEDTIME [facility] Last Admin: 06/07/24 20:34 Dose: 5 mg Loperamide HCl (Loperamide Hcl 2 Mg Capsule) 4 mg PO Q4H PRN PRN Reason: Diarrhea Last Admin: 06/08/24 08:08 Dose: 4 mg Magnesium Hydroxide (Milk Of Magnesia 30 Ml Oral.Susp) 30 ml PO DAILY PRN PRN Reason: Constipation Last Admin: 06/01/24 19:07 Dose: 30 ml Methadone HCl (Methadone Hcl 20 Mg/2 Ml Oral.Conc) 152 mg PO DAILY@0800 [facility] Last Admin: 06/08/24 08:07 Dose: 152 mg Nicotine (Nicotine 14 Mg Patch.Td24) 14 mg TRANSDERMA DAILY [facility] Last Admin: 06/08/24 09:00 Dose: 14 mg Nicotine Polacrilex (Nicotine Polacrilex 2 Mg Gum) 4 mg BUCCAL Q2H PRN PRN Reason: Nicotine Cravings Last Admin: 06/08/24 11:04 Dose: 4 mg Quetiapine Fumarate (Quetiapine Fumarate 50 Mg Tablet) 50 mg PO TID PRN PRN Reason: severe anxiety Last Admin: 06/08/24 09:02 Dose: 50 mg Quetiapine Fumarate (Quetiapine Fumarate 50 Mg Tablet) 150 mg PO BEDTIME [facility] Last Admin: 06/07/24 20:34 Dose: 150 mg Senna/Docusate Sodium (Sennosides/Docusate Sodium Tablet) 2 tab PO DAILY PRN PRN Reason: Constipation Last Admin: 06/07/24 08:16 Dose: 2 tab Topiramate (Topiramate 100 Mg Tablet) 200 mg PO DAILY [facility] Last Admin: 06/08/24 09:01 Dose: 200 mg Trazodone HCl (Trazodone Hcl 100 Mg Tablet) 100 mg PO BEDTIME [facility] Last Admin: 06/07/24 20:34 Dose: 100 mg Venlafaxine HCl (Venlafaxine Hcl Er 150 Mg Cap.Er.24h) 150 mg PO DAILY [facility] Last Admin: 06/08/24 09:01 Dose: 150 mg Allergies Allergies Allergy/AdvReac Type Severity Reaction Status Date / Time lamotrigine [From Lamictal] AdvReac Unknown Rash Verified 05/26/24 07:01 Assessment & Plan Assessment & Plan (1) Bipolar disorder with psychotic features: Status: Acute Code(s): F31.9 - Bipolar disorder, unspecified (2) Polysubstance use disorder: Status: Acute Code(s): F19.90 - Other psychoactive substance use, unspecified, uncomplicated Plan Admit, 15 minute checks INCreased Effexor XL to 150mg (remains depressed) Collateral contact Diagnostics as needed Re-start regime, ?pt may need another antipsychotic which was discussed Discharge planning 05/28: continue regime 05/29: Pt reports feeling anxious and depressed; feeling increased stress d/t thinking about staying with my dad until I find my own apartment . She reports visual hallucinations of people that I don't know ; pt reports she only see them in the morning and then they fade away . denies SI/HI/AH. She reports poor sleep last night d/t increased anxiety. Continue current tx plan. 06/01: Continue regime/plan. Assess for residential treatment potential. Pt asks about [facility]. 06/02 mood is kind of depressed, no improvement; SI remains. Discussed meds and she agrees to increase Effexor (was on 150mg for 2 days before this admission); says VH only ever occur when she wakes up from sleep; otherwise none 06/03 Patient feels overly sedated by risperidone. It did help decrease VH in the morning but the sedation was overwhelming and even caused her to wet the bed. Discussed her experience a VH and for about 10 years, every time she wakes up in the morning, she will see people, typically celebrities. They never speak to her, she knows they are not real, and they remain for about 10 or 15 minutes and then disappear. Happens more frequently than not. No AH at all and otherwise denies any other history of VH. It is distressing to her since she knows they are not real. Discussed options including going up on the Seroquel and patient would like to try haloperidol instead since it might be less sedating. [employer] Worker reviewed risks/side effects of being on Haldol including with additional Seroquel -dc Risperdal -add Haldol 2mg qhs (may instead consider increasing Seroquel instead of adding Haldol) 06/04: Continue current plan/regime. 06/06: Decrease Seroquel to 150 mg HS Klonopin initially decreased, but returned to regular dose as pt reports being on this dose for several years. 06/08: Increase Seroquel to 200 mg HS. Reason for continued inpatient stay Substantial Risk for: rapid decompensation Time Spent With Patient Time: Total time managing care of this patient today ____ minutes.
--- NOTE | 2024-06-08 13:44 | PM.EVENT ---
Event Note Date of Service: 06/08/24 Event Note: Pt is a 38-year-old female admitted [facility] who complains of additional right buttock abscess that began forming a couple of days ago. Pt previously had 2 open abscesses under right buttock that were treated with doxycycline, which pt completed 1 week ago. Pt reports couple of days ago a 3rd abscess began forming. Physical examination shows small area of induration and slight erythema without fluctuance, possibly early abscess formation. Given that pt has just finished course of antibiotics, will treat conservatively for now with warm compresses. We will continue to monitor and if worsens or becomes fluctuant will consult General surgery and/or consider additional course of antibiotics. Time Spent With Patient Time: Total time managing care of this patient today ____ minutes.
[2024-06-08 20:00] VITALS: BP 118/61; PULSE 82; TEMP 36.7; O2SAT 96
[2024-06-08 20:32] VITALS: BP 118/61
[2024-06-08] MEDS: cloNIDine HCL 0.1 MG TABLET PO (20:32)
[2024-06-08] MEDS: Gabapentin 400 MG CAPSULE 800 MG PO (21:55)
[2024-06-08] MEDS: traZODone HCL 100 MG TABLET PO (21:56)
[2024-06-08] MEDS: HaloperidoL 5 MG TABLET PO (21:57)
[2024-06-08] MEDS: QUEtiapine Fumarate 200 MG TABLET PO (21:57)
[2024-06-09] MEDS: Acetaminophen 325 MG TABLET 650 MG PO ×2 (00:43→21:31)
[2024-06-09] MEDS: Loperamide HCl 2 MG CAPSULE 4 MG PO ×3 (00:44→12:18)
[2024-06-09] MEDS: QUEtiapine Fumarate 50 MG TABLET PO ×2 (00:44→17:03)
[2024-06-09] MEDS: Nicotine Polacrilex 2 MG GUM 4 MG BUCCAL ×6 (00:44→19:29)
[2024-06-09] MEDS: methADONE HCl 20 MG/2 ML ORAL.CONC 152 MG PO (07:45)
[2024-06-09 08:00] VITALS: BP 137/77; PULSE 92; RESP 16; TEMP 36.6; O2SAT 98
[2024-06-09] MEDS: Venlafaxine HCl ER 150 MG CAP.ER.24H PO (09:16)
[2024-06-09] MEDS: Gabapentin 600 MG TABLET PO ×3 (09:16→17:03)
[2024-06-09] MEDS: Topiramate 100 MG TABLET 200 MG PO (09:16)
[2024-06-09] MEDS: clonazePAM 1 MG TABLET PO ×3 (09:16→17:03)
[2024-06-09] MEDS: Nicotine 14 MG PATCH.TD24 TRANSDERMA (09:17)
--- NOTE | 2024-06-09 18:35 | HO.PSYCHPN ---
Subjective Subjective Date of Service: 06/09/24 Reason For Visit: SI / Hallucinations Interim History: c/o diarrhea, vomiting, anorexia for the past 5 days. otherwise feeling well, says she is feeling stable and pretty good. per staff, c/o dep/SI. planning to go to rehab. broken sleep. poor sleep last NOC. AH resolved. dep/anx 6. passive SI. Mental Status Exam Mental Status Exam Patient Appearance: Appropriate Patient Orientation: Person, Place, Time and Situation Level of Consciousness: Alert Patient Behavior: Talkative and Good Eye Contact Mood Description: Depressed, Anxious and Apprehensive Affect Description: Flat and Apprehensive Patient Cognition Impaired: No Ability to Follow Directions: Fair Speech Pattern: Spontaneous Speech Memory Description: Remote Impaired and Episodic Impaired Hallucinations: None Delusions: Present Thought Process: Rumination Thought Content: positive for Circumstantial Depressive Symptoms: Increased Anxiety Judgement: Good Diagnostics Vital Signs (24Hr): Vital Signs - 24 hr 06/08/24 20:00 06/08/24 20:32 06/09/24 08:00 Temperature 98.1 F 97.8 F Pulse Rate 82 92 Respiratory Rate 16 Blood Pressure 118/61 118/61 137/77 Pulse Oximetry 96 98 Oxygen Delivery Method Room Air Room Air BMI result Body Mass Index 27.6 Medications Medications Current Medications Acetaminophen (Acetaminophen 325 Mg Tablet) 650 mg PO Q6H PRN PRN Reason: Headache/Pain, Scale 1-10 Last Admin: 06/09/24 00:43 Dose: 650 mg Al Hydroxide/Mg Hydroxide (Magnesium Hydrox/Alum Hydrox 30 Ml Oral.Susp) 30 ml PO Q6H PRN PRN Reason: Heartburn/Nausea Last Admin: 06/07/24 15:21 Dose: 30 ml Clonazepam (Clonazepam 1 Mg Tablet) 1 mg PO TID@0900,1300,1800 [facility] Last Admin: 06/09/24 17:03 Dose: 1 mg Clonidine HCl (Clonidine Hcl 0.1 Mg Tablet) 0.1 mg PO TID PRN; Protocol PRN Reason: anxiety Last Admin: 06/08/24 20:32 Dose: 0.1 mg Docusate Sodium (Docusate Sodium 100 Mg Capsule) 100 mg PO BID PRN PRN Reason: Constipation Last Admin: 06/03/24 14:59 Dose: 100 mg Gabapentin (Gabapentin 600 Mg Tablet) 600 mg PO 0900,1300,1800 [facility] Last Admin: 06/09/24 17:03 Dose: 600 mg Gabapentin (Gabapentin 400 Mg Capsule) 800 mg PO BEDTIME [facility] Last Admin: 06/08/24 21:55 Dose: 800 mg Haloperidol (Haloperidol 5 Mg Tablet) 5 mg PO BEDTIME [facility] Last Admin: 06/08/24 21:57 Dose: 5 mg Loperamide HCl (Loperamide Hcl 2 Mg Capsule) 4 mg PO Q4H PRN PRN Reason: Diarrhea Last Admin: 06/09/24 12:18 Dose: 4 mg Magnesium Hydroxide (Milk Of Magnesia 30 Ml Oral.Susp) 30 ml PO DAILY PRN PRN Reason: Constipation Last Admin: 06/01/24 19:07 Dose: 30 ml Methadone HCl (Methadone Hcl 20 Mg/2 Ml Oral.Conc) 152 mg PO DAILY@0800 [facility] Last Admin: 06/09/24 07:45 Dose: 152 mg Nicotine (Nicotine 14 Mg Patch.Td24) 14 mg TRANSDERMA DAILY [facility] Last Admin: 06/09/24 09:17 Dose: 14 mg Nicotine Polacrilex (Nicotine Polacrilex 2 Mg Gum) 4 mg BUCCAL Q2H PRN PRN Reason: Nicotine Cravings Last Admin: 06/09/24 17:03 Dose: 4 mg Quetiapine Fumarate (Quetiapine Fumarate 50 Mg Tablet) 50 mg PO TID PRN PRN Reason: severe anxiety Last Admin: 06/09/24 17:03 Dose: 50 mg Quetiapine Fumarate (Quetiapine Fumarate 200 Mg Tablet) 200 mg PO BEDTIME [facility] Last Admin: 06/08/24 21:57 Dose: 200 mg Senna/Docusate Sodium (Sennosides/Docusate Sodium Tablet) 2 tab PO DAILY PRN PRN Reason: Constipation Last Admin: 06/07/24 08:16 Dose: 2 tab Simethicone (Simethicone 80 Mg Tab.Chew) 80 mg PO QIDWMHS PRN PRN Reason: gas Topiramate (Topiramate 100 Mg Tablet) 200 mg PO DAILY [facility] Last Admin: 06/09/24 09:16 Dose: 200 mg Trazodone HCl (Trazodone Hcl 100 Mg Tablet) 100 mg PO BEDTIME [facility] Last Admin: 06/08/24 21:56 Dose: 100 mg Venlafaxine HCl (Venlafaxine Hcl Er 150 Mg Cap.Er.24h) 150 mg PO DAILY [facility] Last Admin: 06/09/24 09:16 Dose: 150 mg Allergies Allergies Allergy/AdvReac Type Severity Reaction Status Date / Time lamotrigine [From Lamictal] AdvReac Unknown Rash Verified 05/26/24 07:01 Assessment & Plan Assessment & Plan (1) Bipolar disorder with psychotic features: Status: Acute Code(s): F31.9 - Bipolar disorder, unspecified (2) Polysubstance use disorder: Status: Acute Code(s): F19.90 - Other psychoactive substance use, unspecified, uncomplicated Plan Admit, 15 minute checks INCreased Effexor XL to 150mg (remains depressed) Collateral contact Diagnostics as needed Re-start regime, ?pt may need another antipsychotic which was discussed Discharge planning 05/28: continue regime 05/29: Pt reports feeling anxious and depressed; feeling increased stress d/t thinking about staying with my dad until I find my own apartment . She reports visual hallucinations of people that I don't know ; pt reports she only see them in the morning and then they fade away . denies SI/HI/AH. She reports poor sleep last night d/t increased anxiety. Continue current tx plan. 06/01: Continue regime/plan. Assess for residential treatment potential. Pt asks about [facility]. 06/02 mood is kind of depressed, no improvement; SI remains. Discussed meds and she agrees to increase Effexor (was on 150mg for 2 days before this admission); says VH only ever occur when she wakes up from sleep; otherwise none 06/03 Patient feels overly sedated by risperidone. It did help decrease VH in the morning but the sedation was overwhelming and even caused her to wet the bed. Discussed her experience a VH and for about 10 years, every time she wakes up in the morning, she will see people, typically celebrities. They never speak to her, she knows they are not real, and they remain for about 10 or 15 minutes and then disappear. Happens more frequently than not. No AH at all and otherwise denies any other history of VH. It is distressing to her since she knows they are not real. Discussed options including going up on the Seroquel and patient would like to try haloperidol instead since it might be less sedating. [employer] Consultant reviewed risks/side effects of being on Haldol including with additional Seroquel -dc Risperdal -add Haldol 2mg qhs (may instead consider increasing Seroquel instead of adding Haldol) 06/04: Continue current plan/regime. 06/06: Decrease Seroquel to 150 mg HS Klonopin initially decreased, but returned to regular dose as pt reports being on this dose for several years. 06/08: Increase Seroquel to 200 mg HS. 06/09: check stool studies due to c/o n/v/d. otherwise continue current mgmt. pt reports her mental health Sx have abated. Reason for continued inpatient stay Substantial Risk for: inability to function Time Spent With Patient Time: Total time managing care of this patient today ____ minutes.
[2024-06-09] MEDS: Simethicone 80 MG TAB.CHEW PO (19:59)
[2024-06-09 20:00] VITALS: BP 143/80; PULSE 80; TEMP 36.9; O2SAT 100
[2024-06-09] MEDS: Gabapentin 400 MG CAPSULE 800 MG PO (21:13)
[2024-06-09] MEDS: traZODone HCL 100 MG TABLET PO (21:14)
[2024-06-09] MEDS: HaloperidoL 5 MG TABLET PO (21:14)
[2024-06-09] MEDS: QUEtiapine Fumarate 200 MG TABLET PO (21:15)
[2024-06-10] MEDS: Acetaminophen 325 MG TABLET 650 MG PO ×3 (05:22→21:55)
[2024-06-10] MEDS: Loperamide HCl 2 MG CAPSULE 4 MG PO ×4 (05:23→21:07)
[2024-06-10] MEDS: QUEtiapine Fumarate 50 MG TABLET PO ×2 (05:24→09:22)
[2024-06-10] MEDS: Nicotine Polacrilex 2 MG GUM 4 MG BUCCAL ×6 (05:24→21:08)
[2024-06-10] MEDS: methADONE HCl 20 MG/2 ML ORAL.CONC 152 MG PO (07:40)
[2024-06-10 08:24] VITALS: BP 117/61; PULSE 82; RESP 16; TEMP 36.7; O2SAT 99
[2024-06-10] MEDS: Nicotine 14 MG PATCH.TD24 TRANSDERMA (09:21)
[2024-06-10] MEDS: clonazePAM 1 MG TABLET PO ×3 (09:22→17:47)
[2024-06-10] MEDS: Topiramate 100 MG TABLET 200 MG PO (09:22)
[2024-06-10] MEDS: Gabapentin 600 MG TABLET PO ×3 (09:22→17:47)
[2024-06-10] MEDS: Venlafaxine HCl ER 150 MG CAP.ER.24H PO (09:22)
[2024-06-10] MEDS: Simethicone 80 MG TAB.CHEW PO ×4 (10:14→21:56)
--- NOTE | 2024-06-10 13:18 | PC.NURSE ---
TW instructed pt on order for GI panel d/t frequency in reported diarrhea. Pt states, I'm able to hold it mostly during the day, but at night it gets really bad. So bad that I'm wearing briefs at night . Pt then states, I probably wont do it today, but maybe tonight when it gets bad again . Provider notified, no further orders given. Pt reports good effect w/ immodium and simethicone. Will continue to monitor.
--- NOTE | 2024-06-10 16:16 | HO.PSYCHPN ---
Subjective Subjective Date of Service: 06/10/24 Reason For Visit: SI / Hallucinations Interim History: c/o diarrhea. no complaints otherwise. per staff, pt also c/o AVH of having seen someone walked off the unit in handcuffs overnight. concern diarrhea related to opioid withdrawal since it seems to happen more eves/nights (as methadone wears off). pt agreeable to COWS. Mental Status Exam Mental Status Exam Patient Appearance: Appropriate Patient Orientation: Person, Place, Time and Situation Level of Consciousness: Alert Patient Behavior: Talkative and Good Eye Contact Mood Description: Depressed, Anxious and Apprehensive Affect Description: Flat and Apprehensive Patient Cognition Impaired: No Ability to Follow Directions: Fair Speech Pattern: Spontaneous Speech Memory Description: Remote Impaired and Episodic Impaired Hallucinations: None Delusions: Present Thought Process: Rumination Thought Content: positive for Circumstantial Depressive Symptoms: Increased Anxiety Judgement: Good Diagnostics Vital Signs (24Hr): Vital Signs - 24 hr 06/09/24 20:00 06/10/24 08:24 Temperature 98.4 F 98.1 F Pulse Rate 80 82 Respiratory Rate 16 Blood Pressure 143/80 H 117/61 Pulse Oximetry 100 99 Oxygen Delivery Method Room Air Room Air BMI result Body Mass Index 27.6 Medications Medications Current Medications Acetaminophen (Acetaminophen 325 Mg Tablet) 650 mg PO Q6H PRN PRN Reason: Headache/Pain, Scale 1-10 Last Admin: 06/10/24 15:48 Dose: 650 mg Al Hydroxide/Mg Hydroxide (Magnesium Hydrox/Alum Hydrox 30 Ml Oral.Susp) 30 ml PO Q6H PRN PRN Reason: Heartburn/Nausea Last Admin: 06/07/24 15:21 Dose: 30 ml Clonazepam (Clonazepam 1 Mg Tablet) 1 mg PO TID@0900,1300,1800 [facility] Last Admin: 06/10/24 12:45 Dose: 1 mg Clonidine HCl (Clonidine Hcl 0.1 Mg Tablet) 0.1 mg PO TID PRN; Protocol PRN Reason: anxiety Last Admin: 06/08/24 20:32 Dose: 0.1 mg Docusate Sodium (Docusate Sodium 100 Mg Capsule) 100 mg PO BID PRN PRN Reason: Constipation Last Admin: 06/03/24 14:59 Dose: 100 mg Gabapentin (Gabapentin 600 Mg Tablet) 600 mg PO 0900,1300,1800 [facility] Last Admin: 06/10/24 12:45 Dose: 600 mg Gabapentin (Gabapentin 400 Mg Capsule) 800 mg PO BEDTIME [facility] Last Admin: 06/09/24 21:13 Dose: 800 mg Haloperidol (Haloperidol 5 Mg Tablet) 5 mg PO BEDTIME [facility] Last Admin: 06/09/24 21:14 Dose: 5 mg Loperamide HCl (Loperamide Hcl 2 Mg Capsule) 4 mg PO Q4H PRN PRN Reason: Diarrhea Last Admin: 06/10/24 15:48 Dose: 4 mg Magnesium Hydroxide (Milk Of Magnesia 30 Ml Oral.Susp) 30 ml PO DAILY PRN PRN Reason: Constipation Last Admin: 06/01/24 19:07 Dose: 30 ml Methadone HCl (Methadone Hcl 20 Mg/2 Ml Oral.Conc) 152 mg PO DAILY@0800 [facility] Last Admin: 06/10/24 07:40 Dose: 152 mg Nicotine (Nicotine 14 Mg Patch.Td24) 14 mg TRANSDERMA DAILY [facility] Last Admin: 06/10/24 09:21 Dose: 14 mg Nicotine Polacrilex (Nicotine Polacrilex 2 Mg Gum) 4 mg BUCCAL Q2H PRN PRN Reason: Nicotine Cravings Last Admin: 06/10/24 15:48 Dose: 4 mg Quetiapine Fumarate (Quetiapine Fumarate 50 Mg Tablet) 50 mg PO TID PRN PRN Reason: severe anxiety Last Admin: 06/10/24 09:22 Dose: 50 mg Quetiapine Fumarate (Quetiapine Fumarate 200 Mg Tablet) 200 mg PO BEDTIME [facility] Last Admin: 06/09/24 21:15 Dose: 200 mg Senna/Docusate Sodium (Sennosides/Docusate Sodium Tablet) 2 tab PO DAILY PRN PRN Reason: Constipation Last Admin: 06/07/24 08:16 Dose: 2 tab Simethicone (Simethicone 80 Mg Tab.Chew) 80 mg PO QIDWMHS PRN PRN Reason: gas Last Admin: 06/10/24 12:45 Dose: 80 mg Topiramate (Topiramate 100 Mg Tablet) 200 mg PO DAILY [facility] Last Admin: 06/10/24 09:22 Dose: 200 mg Trazodone HCl (Trazodone Hcl 100 Mg Tablet) 100 mg PO BEDTIME [facility] Last Admin: 06/09/24 21:14 Dose: 100 mg Venlafaxine HCl (Venlafaxine Hcl Er 150 Mg Cap.Er.24h) 150 mg PO DAILY [facility] Last Admin: 06/10/24 09:22 Dose: 150 mg Allergies Allergies Allergy/AdvReac Type Severity Reaction Status Date / Time lamotrigine [From Lamictal] AdvReac Unknown Rash Verified 05/26/24 07:01 Assessment & Plan Assessment & Plan (1) Bipolar disorder with psychotic features: Status: Acute Code(s): F31.9 - Bipolar disorder, unspecified (2) Polysubstance use disorder: Status: Acute Code(s): F19.90 - Other psychoactive substance use, unspecified, uncomplicated Plan Admit, 15 minute checks INCreased Effexor XL to 150mg (remains depressed) Collateral contact Diagnostics as needed Re-start regime, ?pt may need another antipsychotic which was discussed Discharge planning 05/28: continue regime 05/29: Pt reports feeling anxious and depressed; feeling increased stress d/t thinking about staying with my dad until I find my own apartment . She reports visual hallucinations of people that I don't know ; pt reports she only see them in the morning and then they fade away . denies SI/HI/AH. She reports poor sleep last night d/t increased anxiety. Continue current tx plan. 06/01: Continue regime/plan. Assess for residential treatment potential. Pt asks about [facility]. 06/02 mood is kind of depressed, no improvement; SI remains. Discussed meds and she agrees to increase Effexor (was on 150mg for 2 days before this admission); says VH only ever occur when she wakes up from sleep; otherwise none 06/03 Patient feels overly sedated by risperidone. It did help decrease VH in the morning but the sedation was overwhelming and even caused her to wet the bed. Discussed her experience a VH and for about 10 years, every time she wakes up in the morning, she will see people, typically celebrities. They never speak to her, she knows they are not real, and they remain for about 10 or 15 minutes and then disappear. Happens more frequently than not. No AH at all and otherwise denies any other history of VH. It is distressing to her since she knows they are not real. Discussed options including going up on the Seroquel and patient would like to try haloperidol instead since it might be less sedating. [employer] Blender reviewed risks/side effects of being on Haldol including with additional Seroquel -dc Risperdal -add Haldol 2mg qhs (may instead consider increasing Seroquel instead of adding Haldol) 06/04: Continue current plan/regime. 06/06: Decrease Seroquel to 150 mg HS Klonopin initially decreased, but returned to regular dose as pt reports being on this dose for several years. 06/08: Increase Seroquel to 200 mg HS. 06/09: check stool studies due to c/o n/v/d. otherwise continue current mgmt. pt reports her mental health Sx have abated. 06/10: diarrhea. check COWS to ascertain whether it is related to any opioid withdrawal syndrome. reported AVH of someone being walked off the unit in handcuffs last night. focused on rehab. Reason for continued inpatient stay Substantial Risk for: inability to function and rapid decompensation Time Spent With Patient Time: Total time managing care of this patient today ____ minutes.
[2024-06-10 20:00] VITALS: BP 136/76; PULSE 91; TEMP 36.7; O2SAT 97
[2024-06-10] MEDS: HaloperidoL 5 MG TABLET PO (21:03)
[2024-06-10] MEDS: Gabapentin 400 MG CAPSULE 800 MG PO (21:03)
[2024-06-10] MEDS: traZODone HCL 100 MG TABLET PO (21:04)
[2024-06-10] MEDS: QUEtiapine Fumarate 200 MG TABLET PO (21:04)
[2024-06-11 03:00] VITALS: BP 108/55; PULSE 78; TEMP 36.9; O2SAT 97
[2024-06-11] MEDS: Nicotine Polacrilex 2 MG GUM 4 MG BUCCAL ×5 (06:23→20:42)
[2024-06-11 08:00] VITALS: BP 122/64; PULSE 84; RESP 17; TEMP 36.8; O2SAT 100
[2024-06-11] MEDS: methADONE HCl 20 MG/2 ML ORAL.CONC 152 MG PO (08:01)
[2024-06-11] MEDS: Venlafaxine HCl ER 150 MG CAP.ER.24H PO (09:32)
[2024-06-11] MEDS: Topiramate 100 MG TABLET 200 MG PO (09:32)
[2024-06-11] MEDS: Nicotine 14 MG PATCH.TD24 TRANSDERMA (09:32)
[2024-06-11] MEDS: Gabapentin 600 MG TABLET PO ×3 (09:32→17:34)
[2024-06-11] MEDS: clonazePAM 1 MG TABLET PO ×3 (09:32→17:34)
[2024-06-11] MEDS: Loperamide HCl 2 MG CAPSULE 4 MG PO ×2 (09:34→21:28)
--- NOTE | 2024-06-11 09:41 | P.PNPSI_ITS ---
Subjective Subjective Date of Service: 06/11/24 Reason For Visit: SI / Hallucinations Subjective Notes: Conditional Voluntary Healthcare Proxy: No Guardianship: No Medical Problems Affecting Mental Status: No Interim History: Pt/team report symptoms this weekend. Reported VH of seeing a man on the unit that was not present. GI sx persist-diarrhea. Addiction consult ordered to assess for a need for methadone increase. Weekend team thought sx could be withdrawal and re-entated COWS. Pt reports Methadone is the highest it has been (100 mg daily at [facility]). Reports sleep is appropriate, denies AH,VH. Pain in R buttock-?abscess-hospitalist asked to reconsult. Team continues to look for ongoing rehab options for pt. Pt reports she will be making calls this afternoon as well. Medication Compliance: Yes Side effects from medications: No Attending Groups: Intermittent Review of Systems as noted Review of Systems Review of Systems as noted in HPI Mental Status Exam Mental Status Exam Patient Appearance: Appropriate Patient Orientation: Person, Place, Time and Situation Level of Consciousness: Alert Patient Behavior: Talkative and Good Eye Contact Mood Description: Depressed and Anxious Affect Description: Constricted Patient Cognition Impaired: No Ability to Follow Directions: Good Speech Pattern: Spontaneous Speech Memory Description: Intact Hallucinations: None (denies today) Perceptual Disturbances: Derealization Thought Process: Rumination Thought Content: positive for Perseveration and positive for Suicidal Ideation (denies) Judgement: Fair Diagnostics Vital Signs (24Hr): Vital Signs - 24 hr 06/10/24 20:00 06/11/24 03:00 06/11/24 08:00 Temperature 98.1 F 98.4 F 98.3 F Pulse Rate 91 78 84 Respiratory Rate 17 Blood Pressure 136/76 108/55 L 122/64 Pulse Oximetry 97 97 100 Oxygen Delivery Method Room Air Room Air Room Air BMI result Body Mass Index 27.6 Medications Medications Current Medications Acetaminophen (Acetaminophen 325 Mg Tablet) 650 mg PO Q6H PRN PRN Reason: Headache/Pain, Scale 1-10 Last Admin: 06/10/24 21:55 Dose: 650 mg Al Hydroxide/Mg Hydroxide (Magnesium Hydrox/Alum Hydrox 30 Ml Oral.Susp) 30 ml PO Q6H PRN PRN Reason: Heartburn/Nausea Last Admin: 06/07/24 15:21 Dose: 30 ml Clonazepam (Clonazepam 1 Mg Tablet) 1 mg PO TID@0900,1300,1800 [facility] Last Admin: 06/11/24 09:32 Dose: 1 mg Clonidine HCl (Clonidine Hcl 0.1 Mg Tablet) 0.1 mg PO TID PRN; Protocol PRN Reason: anxiety Last Admin: 06/08/24 20:32 Dose: 0.1 mg Docusate Sodium (Docusate Sodium 100 Mg Capsule) 100 mg PO BID PRN PRN Reason: Constipation Last Admin: 06/03/24 14:59 Dose: 100 mg Gabapentin (Gabapentin 600 Mg Tablet) 600 mg PO 0900,1300,1800 [facility] Last Admin: 06/11/24 09:32 Dose: 600 mg Gabapentin (Gabapentin 400 Mg Capsule) 800 mg PO BEDTIME [facility] Last Admin: 06/10/24 21:03 Dose: 800 mg Haloperidol (Haloperidol 5 Mg Tablet) 5 mg PO BEDTIME [facility] Last Admin: 06/10/24 21:03 Dose: 5 mg Loperamide HCl (Loperamide Hcl 2 Mg Capsule) 4 mg PO Q4H PRN PRN Reason: Diarrhea Last Admin: 06/11/24 09:34 Dose: 4 mg Magnesium Hydroxide (Milk Of Magnesia 30 Ml Oral.Susp) 30 ml PO DAILY PRN PRN Reason: Constipation Last Admin: 06/01/24 19:07 Dose: 30 ml Methadone HCl (Methadone Hcl 20 Mg/2 Ml Oral.Conc) 152 mg PO DAILY@0800 [facility] Last Admin: 06/11/24 08:01 Dose: 152 mg Nicotine (Nicotine 14 Mg Patch.Td24) 14 mg TRANSDERMA DAILY [facility] Last Admin: 06/11/24 09:32 Dose: 14 mg Nicotine Polacrilex (Nicotine Polacrilex 2 Mg Gum) 4 mg BUCCAL Q2H PRN PRN Reason: Nicotine Cravings Last Admin: 06/11/24 09:34 Dose: 4 mg Quetiapine Fumarate (Quetiapine Fumarate 50 Mg Tablet) 50 mg PO TID PRN PRN Reason: severe anxiety Last Admin: 06/10/24 09:22 Dose: 50 mg Quetiapine Fumarate (Quetiapine Fumarate 200 Mg Tablet) 200 mg PO BEDTIME [facility] Last Admin: 06/10/24 21:04 Dose: 200 mg Senna/Docusate Sodium (Sennosides/Docusate Sodium Tablet) 2 tab PO DAILY PRN PRN Reason: Constipation Last Admin: 06/07/24 08:16 Dose: 2 tab Simethicone (Simethicone 80 Mg Tab.Chew) 80 mg PO QIDWMHS PRN PRN Reason: gas Last Admin: 06/10/24 21:56 Dose: 80 mg Topiramate (Topiramate 100 Mg Tablet) 200 mg PO DAILY [facility] Last Admin: 06/11/24 09:32 Dose: 200 mg Trazodone HCl (Trazodone Hcl 100 Mg Tablet) 100 mg PO BEDTIME [facility] Last Admin: 06/10/24 21:04 Dose: 100 mg Venlafaxine HCl (Venlafaxine Hcl Er 150 Mg Cap.Er.24h) 150 mg PO DAILY [facility] Last Admin: 06/11/24 09:32 Dose: 150 mg Allergies Allergies Allergy/AdvReac Type Severity Reaction Status Date / Time lamotrigine [From Lamictal] AdvReac Unknown Rash Verified 05/26/24 07:01 Assessment & Plan Assessment & Plan (1) Bipolar disorder with psychotic features: Status: Acute Code(s): F31.9 - Bipolar disorder, unspecified (2) Polysubstance use disorder: Status: Acute Code(s): F19.90 - Other psychoactive substance use, unspecified, uncomplicated Plan Admit, 15 minute checks INCreased Effexor XL to 150mg (remains depressed) Collateral contact Diagnostics as needed Re-start regime, ?pt may need another antipsychotic which was discussed Discharge planning 05/28: continue regime 05/29: Pt reports feeling anxious and depressed; feeling increased stress d/t thinking about staying with my dad until I find my own apartment . She reports visual hallucinations of people that I don't know ; pt reports she only see them in the morning and then they fade away . denies SI/HI/AH. She reports poor sleep last night d/t increased anxiety. Continue current tx plan. 06/01: Continue regime/plan. Assess for residential treatment potential. Pt asks about [facility]. 06/02 mood is kind of depressed, no improvement; SI remains. Discussed meds and she agrees to increase Effexor (was on 150mg for 2 days before this admission); says VH only ever occur when she wakes up from sleep; otherwise none 06/03 Patient feels overly sedated by risperidone. It did help decrease VH in the morning but the sedation was overwhelming and even caused her to wet the bed. Discussed her experience a VH and for about 10 years, every time she wakes up in the morning, she will see people, typically celebrities. They never speak to her, she knows they are not real, and they remain for about 10 or 15 minutes and then disappear. Happens more frequently than not. No AH at all and otherwise denies any other history of VH. It is distressing to her since she knows they are not real. Discussed options including going up on the Seroquel and patient would like to try haloperidol instead since it might be less sedating. Associate Account Director reviewed risks/side effects of being on Haldol including with additional Seroquel -dc Risperdal -add Haldol 2mg qhs (may instead consider increasing Seroquel instead of adding Haldol) 06/04: Continue current plan/regime. 06/06: Decrease Seroquel to 150 mg HS Klonopin initially decreased, but returned to regular dose as pt reports being on this dose for several years. 06/08: Increase Seroquel to 200 mg HS. 06/09: check stool studies due to c/o n/v/d. otherwise continue current mgmt. pt reports her mental health Sx have abated. 06/10: diarrhea. check COWS to ascertain whether it is related to any opioid withdrawal syndrome. reported AVH of someone being walked off the unit in handcuffs last night. focused on rehab. 06/11: stool cultures negative. no AVH today. Reports ?gluten intolerance, will make a diet changes. Reports r buttock pain, ? advanced abscess. will ask hospitalist to see pt as she believes she is in need of an antibiotic. Patient educated on: therapeutic strategies, medical condition and other Reason for continued inpatient stay Substantial Risk for: rapid decompensation Time Spent With Patient Time: Total time managing care of this patient today ____ minutes.
[2024-06-11 10:59] LABS: Adenovirus F 40/41 Not Detected (Not Detect.); Astrovirus Not Detected (Not Detect.); Campylobacter Not Detected (Not Detect.); Cryptosporidium Not Detected (Not Detect.); Cyclospora cayetanensis Not Detected (Not Detect.); E. coli EAEC Not Detected (Not Detect.); E. coli EPEC Not Detected (Not Detect.); E. coli ETEC Not Detected (Not Detect.); E. coli STEC Not Detected (Not Detect.); Entamoeba histolytica Not Detected (Not Detect.); Giardia lamblia Not Detected (Not Detect.); Norovirus GI/GII Not Detected (Not Detect.); Plesiomonas shigelloides Not Detected (Not Detect.); Rotavirus A Not Detected (Not Detect.); Salmonella Not Detected (Not Detect.); Sapovirus Not Detected (Not Detect.); Shigella sp./EIEC Not Detected (Not Detect.); Vibrio Not Detected (Not Detect.); Vibrio Cholerae Not Detected (Not Detect.); Yersinia enterocolitica Not Detected (Not Detect.)
[2024-06-11] MEDS: Acetaminophen 325 MG TABLET 650 MG PO (12:36)
[2024-06-11] MEDS: Simethicone 80 MG TAB.CHEW PO ×2 (12:36→17:39)
[2024-06-11 12:38] VITALS: BP 104/63
[2024-06-11] MEDS: cloNIDine HCL 0.1 MG TABLET PO ×2 (12:38→20:34)
[2024-06-11 19:54] VITALS: BP 143/73; PULSE 76; RESP 16; TEMP 36.9; O2SAT 98
[2024-06-11 20:34] VITALS: BP 136/72
[2024-06-11] MEDS: HaloperidoL 5 MG TABLET PO (20:34)
[2024-06-11] MEDS: Gabapentin 400 MG CAPSULE 800 MG PO (20:35)
[2024-06-11] MEDS: QUEtiapine Fumarate 200 MG TABLET PO (20:35)
[2024-06-11] MEDS: traZODone HCL 100 MG TABLET PO (20:35)
[2024-06-11] MEDS: QUEtiapine Fumarate 50 MG TABLET PO (20:35)
[2024-06-12] VITALS: PULSE 76
[2024-06-12] MEDS: Nicotine Polacrilex 2 MG GUM 4 MG BUCCAL ×6 (03:19→20:15)
[2024-06-12] MEDS: methADONE HCl 20 MG/2 ML ORAL.CONC 152 MG PO (07:40)
[2024-06-12 07:48] VITALS: BP 125/68; PULSE 84; RESP 20; TEMP 36.8; O2SAT 98
[2024-06-12] MEDS: Topiramate 100 MG TABLET 200 MG PO (08:12)
[2024-06-12] MEDS: Venlafaxine HCl ER 150 MG CAP.ER.24H PO (08:12)
[2024-06-12] MEDS: clonazePAM 1 MG TABLET PO ×3 (08:13→17:04)
[2024-06-12] MEDS: Simethicone 80 MG TAB.CHEW PO ×3 (08:13→20:14)
[2024-06-12] MEDS: Gabapentin 600 MG TABLET PO ×3 (08:14→17:04)
[2024-06-12] MEDS: Nicotine 14 MG PATCH.TD24 TRANSDERMA (08:18)
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
[2024-06-12] MEDS: Acetaminophen 325 MG TABLET 650 MG PO (14:27)
--- NOTE | 2024-06-12 16:21 | P.PNPSI_ITS ---
Subjective Subjective Date of Service: 06/12/24 Reason For Visit: SI / Hallucinations Subjective Notes: Conditional Voluntary Healthcare Proxy: No Guardianship: No Medical Problems Affecting Mental Status: No Interim History: Team continues to work on referral resources Pt reports haldol, seroquel, trazodone combination is helpful She asks for reconsideration for an antibiotic for abscess to buttock. Reports it is painful to sit down. Hospitalist will evaluate Diarrhea has stopped for 2 days. Attempting to go gluten/dairy free. Reports increase in flatulence which is disturbing for her. Asking team to help her manage this-believes peers are angry that she has this sx Denies SI, HI, AH, VH. No sx of acute sabine or psychosis Medication Compliance: Yes Side effects from medications: No Attending Groups: Intermittent Review of Systems Acute medical concerns: No Medical Review of Systems: unchanged Review of Systems Review of Systems flatulence pain from R buttock abscess Mental Status Exam Mental Status Exam Patient Appearance: Appropriate Patient Orientation: Person, Place, Time and Situation Level of Consciousness: Alert Patient Behavior: Talkative and Good Eye Contact Mood Description: Anxious Affect Description: Constricted Patient Cognition Impaired: No Ability to Follow Directions: Good Speech Pattern: Spontaneous Speech Memory Description: Intact Hallucinations: None (denies today) Thought Content: positive for Perseveration and positive for Suicidal Ideation (denies) Judgement: Good Diagnostics Vital Signs (24Hr): Vital Signs - 24 hr 06/11/24 19:54 06/11/24 20:34 06/12/24 07:48 Temperature 98.5 F 98.2 F Pulse Rate 76 84 Respiratory Rate 16 20 Blood Pressure 143/73 H 136/72 125/68 Pulse Oximetry 98 98 Oxygen Delivery Method Room Air Room Air BMI result Body Mass Index 27.6 Labs Labs: Laboratory Results - last 48 hr 06/10/24 21:23 Stl C. cayetanensis PCR Not Detected Stool Rotavirus A PCR Not Detected Stl Adenov F 40/41 PCR Not Detected Stool Astrovirus (PCR) Not Detected Stool Campylobacter PCR Not Detected Stool Cryptosporidium PCR Not Detected Stl Sh Tox Pr E STEC PCR Not Detected Stool E coli O157 PCR Not applicable Stl Enterotoxigenic E PCR Not Detected Stool EPEC (PCR) Not Detected Stool EAEC (PCR) Not Detected Stl E. histolytica PCR Not Detected Stool Giardia Lamblia PCR Not Detected Stl P. shigelloides PCR Not Detected Stool Salmonella PCR Not Detected Stool Sapovirus (PCR) Not Detected Stl Shigella/EIEC PCR Not Detected St Y.enterocolitica PCR Not Detected Stool Vibrio (PCR) Not Detected Stl Vibrio cholerae PCR Not Detected Stl Norovirus GI/GII PCR Not Detected Medications Medications Current Medications Acetaminophen (Acetaminophen 325 Mg Tablet) 650 mg PO Q6H PRN PRN Reason: Headache/Pain, Scale 1-10 Last Admin: 06/12/24 14:27 Dose: 650 mg Al Hydroxide/Mg Hydroxide (Magnesium Hydrox/Alum Hydrox 30 Ml Oral.Susp) 30 ml PO Q6H PRN PRN Reason: Heartburn/Nausea Last Admin: 06/07/24 15:21 Dose: 30 ml Clonazepam (Clonazepam 1 Mg Tablet) 1 mg PO TID@0900,1300,1800 [facility] Last Admin: 06/12/24 12:16 Dose: 1 mg Clonidine HCl (Clonidine Hcl 0.1 Mg Tablet) 0.1 mg PO TID PRN; Protocol PRN Reason: anxiety Last Admin: 06/11/24 20:34 Dose: 0.1 mg Docusate Sodium (Docusate Sodium 100 Mg Capsule) 100 mg PO BID PRN PRN Reason: Constipation Last Admin: 06/03/24 14:59 Dose: 100 mg Doxycycline Monohydrate (Doxycycline Monohydrate 100 Mg Capsule) 100 mg PO ONCE ONE Stop: 06/12/24 16:19 Doxycycline Monohydrate (Doxycycline Monohydrate 100 Mg Capsule) 100 mg PO Q12H [facility] Gabapentin (Gabapentin 600 Mg Tablet) 600 mg PO 0900,1300,1800 [facility] Last Admin: 06/12/24 12:16 Dose: 600 mg Gabapentin (Gabapentin 400 Mg Capsule) 800 mg PO BEDTIME [facility] Last Admin: 06/11/24 20:35 Dose: 800 mg Haloperidol (Haloperidol 5 Mg Tablet) 5 mg PO BEDTIME [facility] Last Admin: 06/11/24 20:34 Dose: 5 mg Lactase (Lactase Tablet) 1 tab PO TIDWM [facility] Loperamide HCl (Loperamide Hcl 2 Mg Capsule) 4 mg PO Q4H PRN PRN Reason: Diarrhea Last Admin: 06/11/24 21:28 Dose: 4 mg Magnesium Hydroxide (Milk Of Magnesia 30 Ml Oral.Susp) 30 ml PO DAILY PRN PRN Reason: Constipation Last Admin: 06/01/24 19:07 Dose: 30 ml Methadone HCl (Methadone Hcl 20 Mg/2 Ml Oral.Conc) 152 mg PO DAILY@0800 [facility] Last Admin: 06/12/24 07:40 Dose: 152 mg Nicotine (Nicotine 14 Mg Patch.Td24) 14 mg TRANSDERMA DAILY [facility] Last Admin: 06/12/24 08:18 Dose: 14 mg Nicotine Polacrilex (Nicotine Polacrilex 2 Mg Gum) 4 mg BUCCAL Q2H PRN PRN Reason: Nicotine Cravings Last Admin: 06/12/24 14:26 Dose: 4 mg Quetiapine Fumarate (Quetiapine Fumarate 50 Mg Tablet) 50 mg PO TID PRN PRN Reason: severe anxiety Last Admin: 06/11/24 20:35 Dose: 50 mg Quetiapine Fumarate (Quetiapine Fumarate 200 Mg Tablet) 200 mg PO BEDTIME [facility] Last Admin: 06/11/24 20:35 Dose: 200 mg Senna/Docusate Sodium (Sennosides/Docusate Sodium Tablet) 2 tab PO DAILY PRN PRN Reason: Constipation Last Admin: 06/07/24 08:16 Dose: 2 tab Simethicone (Simethicone 80 Mg Tab.Chew) 80 mg PO QIDWMHS PRN PRN Reason: gas Last Admin: 06/12/24 12:16 Dose: 80 mg Topiramate (Topiramate 100 Mg Tablet) 200 mg PO DAILY [facility] Last Admin: 06/12/24 08:12 Dose: 200 mg Trazodone HCl (Trazodone Hcl 100 Mg Tablet) 100 mg PO BEDTIME [facility] Last Admin: 06/11/24 20:35 Dose: 100 mg Venlafaxine HCl (Venlafaxine Hcl Er 150 Mg Cap.Er.24h) 150 mg PO DAILY [facility] Last Admin: 06/12/24 08:12 Dose: 150 mg Allergies Allergies Allergy/AdvReac Type Severity Reaction Status Date / Time lamotrigine [From Lamictal] AdvReac Unknown Rash Verified 05/26/24 07:01 Assessment & Plan Assessment & Plan (1) Polysubstance use disorder: Status: Acute Code(s): F19.90 - Other psychoactive substance use, unspecified, uncomplicated Assessment and Plan: * unlikely GI sx are related to opioid withdrawal --patient also does not feel they are experiencing any withdrawal sx * No change to methadone dose * d/c COWS * no follow up from [facility] indicated at this time (2) Bipolar disorder with psychotic features: Status: Acute Code(s): F31.9 - Bipolar disorder, unspecified Plan 3/: Continue current plan. Reason for continued inpatient stay Substantial Risk for: stable for discharge Time Spent With Patient Time: Total time managing care of this patient today ____ minutes.
[2024-06-12] MEDS: Lactase TABLET 1 TAB PO (16:48)
[2024-06-12] MEDS: Doxycycline Monohydrate 100 MG CAPSULE PO (16:48)
--- NOTE | 2024-06-12 17:51 | PM.EVENT ---
Event Note Date of Service: 06/12/24 Event Note: Pt is a 38-year-old female admitted to [facility] with follow up consult for right buttock abscess. Pt reports increased pain in the area, though does experienced temporary relief with warm compresses. Reports has opened and began draining, though is uncertain exactly when this occurred. Reports discharge was bloody with pus. Pt seen and examined where abscess appears open and currently covered with scab, with surrounding area erythema and induration. No fluctuance noted. Pt denies systemic symptoms including fever or chills. Will treat with doxycycline 100 mg b.i.d. x7 days. Given recurrent abscesses in this area, with then suggest applying bacitracin twice a day for the next 2 weeks. Keep area open and uncovered if possible. If drainage noted, can use nonadhesive gauze or pad. Time Spent With Patient Time: Total time managing care of this patient today ____ minutes.
[2024-06-12 19:58] VITALS: BP 118/67; PULSE 83; RESP 16; TEMP 36.4; O2SAT 100
[2024-06-12] MEDS: traZODone HCL 100 MG TABLET PO (20:15)
[2024-06-12] MEDS: QUEtiapine Fumarate 200 MG TABLET PO (20:15)
[2024-06-12] MEDS: HaloperidoL 5 MG TABLET PO (20:15)
[2024-06-12] MEDS: Gabapentin 400 MG CAPSULE 800 MG PO (20:15)
[2024-06-13] MEDS: methADONE HCl 20 MG/2 ML ORAL.CONC 152 MG PO (07:33)
[2024-06-13 07:58] VITALS: BP 114/68; PULSE 82; RESP 16; TEMP 36.5; O2SAT 98
[2024-06-13] MEDS: Acetaminophen 325 MG TABLET 650 MG PO ×3 (08:32→21:42)
[2024-06-13] MEDS: Doxycycline Monohydrate 100 MG CAPSULE PO ×2 (08:33→21:43)
[2024-06-13] MEDS: Venlafaxine HCl ER 150 MG CAP.ER.24H PO (08:33)
[2024-06-13] MEDS: Simethicone 80 MG TAB.CHEW PO ×4 (08:33→21:43)
[2024-06-13] MEDS: Gabapentin 600 MG TABLET PO ×3 (08:33→17:58)
[2024-06-13] MEDS: clonazePAM 1 MG TABLET PO ×3 (08:33→17:58)
[2024-06-13] MEDS: Topiramate 100 MG TABLET 200 MG PO (08:33)
[2024-06-13] MEDS: Nicotine 14 MG PATCH.TD24 TRANSDERMA (08:33)
[2024-06-13] MEDS: Lactase TABLET 1 TAB PO ×3 (08:33→17:57)
[2024-06-13] MEDS: Nicotine Polacrilex 2 MG GUM 4 MG BUCCAL ×6 (08:35→21:21)
--- NOTE | 2024-06-13 10:10 | P.PNPSI_ITS ---
Subjective Subjective Date of Service: 06/13/24 Reason For Visit: SI / Hallucinations Interim History: Met with patient; discussed with team Patient says she is overall doing better and that she is no longer having diarrhea and the flatulence is significantly lower. Denies any AVH or AH and agrees that Haldol has been helping. Patient feels groggy in the morning and wonders if a medication change might help; agrees to lower trazodone Mental Status Exam Mental Status Exam Narrative: Pt is alert and oriented; behavior is cooperative, friendly and calm; patient is not in distress; dressed in casual attire with unkempt hair but adequate hygiene; mood is described as better and affect congruent, brighter, not drowsy; eye contact appropriate; Speech is normal rate, volume and prosody and not pressured; no psychomotor agitation/retardation present; thought process is organized and goal directed; Thought content is on tx; otherwise pertinent to relevant topics and without any delusional content, paranoid ideations or grandiosity; denies any SI/HI. Denies AVH. Patients insight and judgment appear intact. Diagnostics Vital Signs (24Hr): Vital Signs - 24 hr 06/12/24 19:58 06/13/24 07:58 Temperature 97.6 F 97.7 F Pulse Rate 83 82 Respiratory Rate 16 16 Blood Pressure 118/67 114/68 Pulse Oximetry 100 98 Oxygen Delivery Method Room Air BMI result Body Mass Index 27.6 Labs Labs: Laboratory Results - last 48 hr 06/10/24 21:23 Stl C. cayetanensis PCR Not Detected Stool Rotavirus A PCR Not Detected Stl Adenov F 40/41 PCR Not Detected Stool Astrovirus (PCR) Not Detected Stool Campylobacter PCR Not Detected Stool Cryptosporidium PCR Not Detected Stl Sh Tox Pr E STEC PCR Not Detected Stool E coli O157 PCR Not applicable Stl Enterotoxigenic E PCR Not Detected Stool EPEC (PCR) Not Detected Stool EAEC (PCR) Not Detected Stl E. histolytica PCR Not Detected Stool Giardia Lamblia PCR Not Detected Stl P. shigelloides PCR Not Detected Stool Salmonella PCR Not Detected Stool Sapovirus (PCR) Not Detected Stl Shigella/EIEC PCR Not Detected St Y.enterocolitica PCR Not Detected Stool Vibrio (PCR) Not Detected Stl Vibrio cholerae PCR Not Detected Stl Norovirus GI/GII PCR Not Detected Medications Medications Current Medications Acetaminophen (Acetaminophen 325 Mg Tablet) 650 mg PO Q6H PRN PRN Reason: Headache/Pain, Scale 1-10 Last Admin: 06/13/24 08:32 Dose: 650 mg Al Hydroxide/Mg Hydroxide (Magnesium Hydrox/Alum Hydrox 30 Ml Oral.Susp) 30 ml PO Q6H PRN PRN Reason: Heartburn/Nausea Last Admin: 06/07/24 15:21 Dose: 30 ml Clonazepam (Clonazepam 1 Mg Tablet) 1 mg PO TID@0900,1300,1800 [facility] Last Admin: 06/13/24 08:33 Dose: 1 mg Clonidine HCl (Clonidine Hcl 0.1 Mg Tablet) 0.1 mg PO TID PRN; Protocol PRN Reason: anxiety Last Admin: 06/11/24 20:34 Dose: 0.1 mg Docusate Sodium (Docusate Sodium 100 Mg Capsule) 100 mg PO BID PRN PRN Reason: Constipation Last Admin: 06/03/24 14:59 Dose: 100 mg Doxycycline Monohydrate (Doxycycline Monohydrate 100 Mg Capsule) 100 mg PO Q12H [facility] Stop: 06/19/24 09:01 Last Admin: 06/13/24 08:33 Dose: 100 mg Gabapentin (Gabapentin 600 Mg Tablet) 600 mg PO 0900,1300,1800 [facility] Last Admin: 06/13/24 08:33 Dose: 600 mg Gabapentin (Gabapentin 400 Mg Capsule) 800 mg PO BEDTIME [facility] Last Admin: 06/12/24 20:15 Dose: 800 mg Haloperidol (Haloperidol 5 Mg Tablet) 5 mg PO BEDTIME [facility] Last Admin: 06/12/24 20:15 Dose: 5 mg Lactase (Lactase Tablet) 1 tab PO TIDWM [facility] Last Admin: 06/13/24 08:33 Dose: 1 tab Loperamide HCl (Loperamide Hcl 2 Mg Capsule) 4 mg PO Q4H PRN PRN Reason: Diarrhea Last Admin: 06/11/24 21:28 Dose: 4 mg Magnesium Hydroxide (Milk Of Magnesia 30 Ml Oral.Susp) 30 ml PO DAILY PRN PRN Reason: Constipation Last Admin: 06/01/24 19:07 Dose: 30 ml Methadone HCl (Methadone Hcl 20 Mg/2 Ml Oral.Conc) 152 mg PO DAILY@0800 [facility] Last Admin: 06/13/24 07:33 Dose: 152 mg Nicotine (Nicotine 14 Mg Patch.Td24) 14 mg TRANSDERMA DAILY [facility] Last Admin: 06/13/24 08:33 Dose: 14 mg Nicotine Polacrilex (Nicotine Polacrilex 2 Mg Gum) 4 mg BUCCAL Q2H PRN PRN Reason: Nicotine Cravings Last Admin: 06/13/24 08:35 Dose: 4 mg Quetiapine Fumarate (Quetiapine Fumarate 50 Mg Tablet) 50 mg PO TID PRN PRN Reason: severe anxiety Last Admin: 06/11/24 20:35 Dose: 50 mg Quetiapine Fumarate (Quetiapine Fumarate 200 Mg Tablet) 200 mg PO BEDTIME [facility] Last Admin: 06/12/24 20:15 Dose: 200 mg Senna/Docusate Sodium (Sennosides/Docusate Sodium Tablet) 2 tab PO DAILY PRN PRN Reason: Constipation Last Admin: 06/07/24 08:16 Dose: 2 tab Simethicone (Simethicone 80 Mg Tab.Chew) 80 mg PO QIDWMHS PRN PRN Reason: gas Last Admin: 06/13/24 08:33 Dose: 80 mg Topiramate (Topiramate 100 Mg Tablet) 200 mg PO DAILY [facility] Last Admin: 06/13/24 08:33 Dose: 200 mg Trazodone HCl (Trazodone Hcl 100 Mg Tablet) 100 mg PO BEDTIME [facility] Last Admin: 06/12/24 20:15 Dose: 100 mg Venlafaxine HCl (Venlafaxine Hcl Er 150 Mg Cap.Er.24h) 150 mg PO DAILY [facility] Last Admin: 06/13/24 08:33 Dose: 150 mg Allergies Allergies Allergy/AdvReac Type Severity Reaction Status Date / Time lamotrigine [From Lamictal] AdvReac Unknown Rash Verified 05/26/24 07:01 Assessment & Plan Assessment & Plan (1) Bipolar disorder with psychotic features: Status: Acute Code(s): F31.9 - Bipolar disorder, unspecified (2) Polysubstance use disorder: Status: Acute Code(s): F19.90 - Other psychoactive substance use, unspecified, uncomplicated Assessment and Plan: * unlikely GI sx are related to opioid withdrawal --patient also does not feel they are experiencing any withdrawal sx * No change to methadone dose * d/c COWS * no follow up from [facility] indicated at this time Plan 06/12: Continue current plan. 3/5 Patient says she is overall doing better and that she is no longer having diarrhea and the flatulence is significantly lower. Denies any AVH or AH and agrees that Haldol has been helping. Patient feels groggy in the morning and wonders if a medication change might help; agrees to lower trazodone Patient educated on: diagnosis, medication risk/benefits and medical condition Informed Consent: understands Reason for continued inpatient stay Substantial Risk for: stable for discharge Time Spent With Patient Time: Total time managing care of this patient today ____ minutes.
[2024-06-13 20:00] VITALS: BP 131/71; PULSE 87; TEMP 37.2; O2SAT 99
[2024-06-13] MEDS: Gabapentin 400 MG CAPSULE 800 MG PO (21:42)
[2024-06-13] MEDS: QUEtiapine Fumarate 200 MG TABLET PO (21:42)
[2024-06-13] MEDS: HaloperidoL 5 MG TABLET PO (21:43)
[2024-06-14 07:00] VITALS: BMI 26.3
[2024-06-14] MEDS: Nicotine Polacrilex 2 MG GUM 4 MG BUCCAL ×5 (07:18→20:54)
[2024-06-14] MEDS: methADONE HCl 20 MG/2 ML ORAL.CONC 152 MG PO (07:48)
[2024-06-14 08:00] VITALS: BP 114/80; PULSE 80; RESP 16; TEMP 36.5; O2SAT 100
[2024-06-14] MEDS: Nicotine 14 MG PATCH.TD24 TRANSDERMA (09:01)
[2024-06-14] MEDS: Topiramate 100 MG TABLET 200 MG PO (09:02)
[2024-06-14] MEDS: Gabapentin 600 MG TABLET PO ×3 (09:03→17:22)
[2024-06-14] MEDS: Venlafaxine HCl ER 150 MG CAP.ER.24H PO (09:03)
[2024-06-14] MEDS: Doxycycline Monohydrate 100 MG CAPSULE PO ×2 (09:03→20:55)
[2024-06-14] MEDS: clonazePAM 1 MG TABLET PO ×3 (09:03→17:22)
[2024-06-14] MEDS: Simethicone 80 MG TAB.CHEW PO ×2 (09:24→17:22)
[2024-06-14] MEDS: Acetaminophen 325 MG TABLET 650 MG PO (09:25)
[2024-06-14] MEDS: Lactase TABLET 1 TAB PO ×2 (12:26→17:22)
--- NOTE | 2024-06-14 13:21 | P.PNPSI_ITS ---
Subjective Subjective Date of Service: 06/14/24 Reason For Visit: SI / Hallucinations Subjective Notes: Conditional Voluntary Healthcare Proxy: No Guardianship: No Medical Problems Affecting Mental Status: No Interim History: I am feeling really a lot better today. Medication review with Letty today with adjustments in Trazodone, Haldol, Seroquel. Feeling positive, prepared to enter her next step of recovery and engaged in milieu. Medication Compliance: Yes Side effects from medications: Yes (sedation, with hs meds, changes made today) Attending Groups: Intermittent Review of Systems Acute medical concerns: No Medical Review of Systems: unchanged Review of Systems Review of Systems Intermittent discomfort with buttock abscess, but improved Mental Status Exam Mental Status Exam Patient Appearance: Appropriate Patient Orientation: Person, Place, Time and Situation Level of Consciousness: Alert Patient Behavior: Talkative and Good Eye Contact Mood Description: Anxious Affect Description: Constricted Patient Cognition Impaired: No Ability to Follow Directions: Good Speech Pattern: Spontaneous Speech Memory Description: Intact Hallucinations: None (denies today) Thought Content: positive for Perseveration and positive for Suicidal Ideation (denies) Judgement: Good Diagnostics Vital Signs (24Hr): Vital Signs - 24 hr 06/13/24 20:00 06/14/24 08:00 Temperature 98.9 F 97.7 F Pulse Rate 87 80 Respiratory Rate 16 Blood Pressure 131/71 114/80 Pulse Oximetry 99 100 Oxygen Delivery Method Room Air Room Air BMI result Body Mass Index 26.3 Medications Medications Current Medications Acetaminophen (Acetaminophen 325 Mg Tablet) 650 mg PO Q6H PRN PRN Reason: Headache/Pain, Scale 1-10 Last Admin: 06/14/24 09:25 Dose: 650 mg Al Hydroxide/Mg Hydroxide (Magnesium Hydrox/Alum Hydrox 30 Ml Oral.Susp) 30 ml PO Q6H PRN PRN Reason: Heartburn/Nausea Last Admin: 06/07/24 15:21 Dose: 30 ml Clonazepam (Clonazepam 1 Mg Tablet) 1 mg PO TID@0900,1300,1800 [facility] Last Admin: 06/14/24 12:26 Dose: 1 mg Clonidine HCl (Clonidine Hcl 0.1 Mg Tablet) 0.1 mg PO TID PRN; Protocol PRN Reason: anxiety Last Admin: 06/11/24 20:34 Dose: 0.1 mg Docusate Sodium (Docusate Sodium 100 Mg Capsule) 100 mg PO BID PRN PRN Reason: Constipation Last Admin: 06/03/24 14:59 Dose: 100 mg Doxycycline Monohydrate (Doxycycline Monohydrate 100 Mg Capsule) 100 mg PO Q12H [facility] Stop: 06/19/24 09:01 Last Admin: 06/14/24 09:03 Dose: 100 mg Gabapentin (Gabapentin 600 Mg Tablet) 600 mg PO 0900,1300,1800 [facility] Last Admin: 06/14/24 12:26 Dose: 600 mg Gabapentin (Gabapentin 400 Mg Capsule) 800 mg PO BEDTIME [facility] Last Admin: 06/13/24 21:42 Dose: 800 mg Haloperidol (Haloperidol 5 Mg Tablet) 5 mg PO BEDTIME [facility] Last Admin: 06/13/24 21:43 Dose: 5 mg Lactase (Lactase Tablet) 1 tab PO TIDWM [facility] Last Admin: 06/14/24 12:26 Dose: 1 tab Loperamide HCl (Loperamide Hcl 2 Mg Capsule) 4 mg PO Q4H PRN PRN Reason: Diarrhea Last Admin: 06/11/24 21:28 Dose: 4 mg Magnesium Hydroxide (Milk Of Magnesia 30 Ml Oral.Susp) 30 ml PO DAILY PRN PRN Reason: Constipation Last Admin: 06/01/24 19:07 Dose: 30 ml Methadone HCl (Methadone Hcl 20 Mg/2 Ml Oral.Conc) 152 mg PO DAILY@0800 [facility] Last Admin: 06/14/24 07:48 Dose: 152 mg Nicotine (Nicotine 14 Mg Patch.Td24) 14 mg TRANSDERMA DAILY [facility] Last Admin: 06/14/24 09:01 Dose: 14 mg Nicotine Polacrilex (Nicotine Polacrilex 2 Mg Gum) 4 mg BUCCAL Q2H PRN PRN Reason: Nicotine Cravings Last Admin: 06/14/24 09:24 Dose: 4 mg Quetiapine Fumarate (Quetiapine Fumarate 50 Mg Tablet) 50 mg PO TID PRN PRN Reason: severe anxiety Last Admin: 06/11/24 20:35 Dose: 50 mg Quetiapine Fumarate (Quetiapine Fumarate 200 Mg Tablet) 200 mg PO BEDTIME [facility] Last Admin: 06/13/24 21:42 Dose: 200 mg Senna/Docusate Sodium (Sennosides/Docusate Sodium Tablet) 2 tab PO DAILY PRN PRN Reason: Constipation Last Admin: 06/07/24 08:16 Dose: 2 tab Simethicone (Simethicone 80 Mg Tab.Chew) 80 mg PO QIDWMHS PRN PRN Reason: gas Last Admin: 06/14/24 09:24 Dose: 80 mg Topiramate (Topiramate 100 Mg Tablet) 200 mg PO DAILY [facility] Last Admin: 06/14/24 09:02 Dose: 200 mg Trazodone HCl (Trazodone Hcl 50 Mg Tablet) 150 mg PO BEDTIME [facility] Last Admin: 06/13/24 21:42 Dose: Not Given Venlafaxine HCl (Venlafaxine Hcl Er 150 Mg Cap.Er.24h) 150 mg PO DAILY [facility] Last Admin: 06/14/24 09:03 Dose: 150 mg Allergies Allergies Allergy/AdvReac Type Severity Reaction Status Date / Time lamotrigine [From Lamictal] AdvReac Unknown Rash Verified 05/26/24 07:01 Assessment & Plan Assessment & Plan (1) Bipolar disorder with psychotic features: Status: Acute Code(s): F31.9 - Bipolar disorder, unspecified (2) Polysubstance use disorder: Status: Acute Code(s): F19.90 - Other psychoactive substance use, unspecified, uncomplicated Assessment and Plan: * unlikely GI sx are related to opioid withdrawal --patient also does not feel they are experiencing any withdrawal sx * No change to methadone dose * d/c COWS * no follow up from [facility] indicated at this time Plan 3/4: Continue current plan. 3 Patient says she is overall doing better and that she is no longer having diarrhea and the flatulence is significantly lower. Denies any AVH or AH and agrees that Haldol has been helping. Patient feels groggy in the morning and wonders if a medication change might help; agrees to lower trazodone 3/6 a.m. sedation still a sx. Decrease Haldol to 2 mg HS Increase Seroqeul to 250 mg HS Decrease Trazodone to 100 mg HS Pt reports overall feeling much improved. Reason for continued inpatient stay Substantial Risk for: rapid decompensation Time Spent With Patient Time: Total time managing care of this patient today ____ minutes.
[2024-06-14 20:00] VITALS: BP 131/68; PULSE 71; TEMP 36.6; O2SAT 98
[2024-06-14] MEDS: QUEtiapine Fumarate 50 MG TABLET 250 MG PO (20:54)
[2024-06-14] MEDS: HaloperidoL 1 MG TABLET 2 MG PO (20:55)
[2024-06-14] MEDS: Gabapentin 400 MG CAPSULE 800 MG PO (20:55)
[2024-06-15] MEDS: Nicotine Polacrilex 2 MG GUM 4 MG BUCCAL ×7 (00:26→21:02)
[2024-06-15 08:00] VITALS: BP 124/73; PULSE 82; RESP 18; TEMP 36.6; O2SAT 96
[2024-06-15] MEDS: methADONE HCl 20 MG/2 ML ORAL.CONC 152 MG PO (08:06)
[2024-06-15] MEDS: Nicotine 14 MG PATCH.TD24 TRANSDERMA (09:17)
[2024-06-15] MEDS: Venlafaxine HCl ER 150 MG CAP.ER.24H PO (09:17)
[2024-06-15] MEDS: Gabapentin 600 MG TABLET PO ×3 (09:17→17:32)
[2024-06-15] MEDS: Topiramate 100 MG TABLET 200 MG PO (09:17)
[2024-06-15] MEDS: clonazePAM 1 MG TABLET PO ×3 (09:17→17:32)
[2024-06-15] MEDS: Lactase TABLET 1 TAB PO ×3 (09:17→17:32)
[2024-06-15] MEDS: Doxycycline Monohydrate 100 MG CAPSULE PO ×2 (09:18→21:00)
[2024-06-15] MEDS: Acetaminophen 325 MG TABLET 650 MG PO ×2 (09:18→21:01)
[2024-06-15 12:23] LABS: MANUAL DIFF FLAG NO
[2024-06-15 12:24] LABS: Hematocrit 38.7 % (37.0-47.0); Red Blood Count 4.22 X10*6/uL (4.20-5.50); White Blood Count 6.8 X10*3/uL (4.8-10.8)
[2024-06-15 12:25] LABS: Basophils Absolute Auto 0.1 X10*3/uL (0.0-0.2); Eosinophils Absolute Auto 0.4 X10*3/uL (0.0-0.4); Eosinophils Percent Auto 5.5 % (0-4); Imm Gran Abs Auto 0.01 X10*3/uL (0.00-0.03); Imm Gran Pct Auto 0.1 % (0.0-0.4); Lymphocytes Absolute Auto 2.6 X10*3/uL (1.2-4.9); Mean Corpuscular HGB Conc 33.6 g/dl (31.0-35.0); Mean Corpuscular Hemoglobin 30.8 pg (27.0-33.0); Mean Corpuscular Volume 91.7 fL (80.0-98.0); Mean Platelet Volume 10.3 fL (9.4-12.3); Monocytes Absolute Auto 0.4 X10*3/uL (0.1-1.2); Monocytes Percent Auto 6.4 % (2-11); Neutrophils Absolute Auto 3.3 x10*3/uL (2.0-8.3); Platelet Count 313 X10*3/uL (160-400)
[2024-06-15 12:46] LABS: Alanine Aminotransferase 25 U/L (0-31); Albumin Level 4.2 g/dL (3.5-5.0); Alkaline Phosphatase 65 U/L (39-117); Anion Gap 12 (12-20); Aspartate Amino Transferase 21 U/L (5-31); Bilirubin Total 0.2 mg/dL (0.0-1.0); Blood Urea Nitrogen 16 mg/dL (9-16); Calcium 9.1 mg/dL (8.4-10.2); Carbon Dioxide 26 mmol/L (22-29); Chloride 107 mmol/L (96-108); Creatinine Clr Calc Pharmacy 100.6; Estimated Glomerular Filt Rate > 60; Glucose Random 107 mg/dL (60-115); Potassium 4.6 mmol/L (3.3-5.1); Sodium 140 mmol/L (135-145); Total Protein 7.6 g/dL (6.5-8.0)
--- NOTE | 2024-06-15 15:44 | P.PNPSI_ITS ---
Subjective Subjective Date of Service: 06/15/24 Reason For Visit: SI / Hallucinations Subjective Notes: Conditional Voluntary Healthcare Proxy: No Guardianship: No Medical Problems Affecting Mental Status: No Interim History: Pt continues to report feeling improved. Her father visited today. He states he thinks she looks well however expressed concern that she will be able to sustain this. Med changes made 3/ pt reports are positive and she believes current regime and doses are appropriate to her needs. She continues to await applications for [employer] programs. Medication Compliance: Yes Side effects from medications: No Attending Groups: Yes Review of Systems Acute medical concerns: No Medical Review of Systems: unchanged Review of Systems Review of Systems Denies, pt reports she is feeling well today. Mental Status Exam Mental Status Exam Patient Appearance: Appropriate Patient Orientation: Person, Place, Time and Situation Level of Consciousness: Alert Patient Behavior: Talkative and Good Eye Contact Mood Description: Apprehensive Affect Description: Apprehensive Patient Cognition Impaired: No Ability to Follow Directions: Good Speech Pattern: Spontaneous Speech Memory Description: Intact Hallucinations: None (denies today) Thought Process: Intact Thought Content: positive for Intact and positive for Suicidal Ideation (denies) Judgement: Good Diagnostics Vital Signs (24Hr): Vital Signs - 24 hr 06/14/24 20:00 06/15/24 08:00 Temperature 97.8 F 97.8 F Pulse Rate 71 82 Respiratory Rate 18 Blood Pressure 131/68 124/73 Pulse Oximetry 98 96 Oxygen Delivery Method Room Air Room Air BMI result Body Mass Index 26.3 Labs 06/15/24 11:58 06/15/24 11:58 Labs: Laboratory Results - last 48 hr 06/15/24 11:58 WBC 6.8 RBC 4.22 Hgb 13.0 Hct 38.7 MCV 91.7 MCH 30.8 MCHC 33.6 RDW 13.0 Plt Count 313 MPV 10.3 Immature Gran % (Auto) 0.1 Neut % (Auto) 49.0 Lymph % (Auto) 38.0 [place] % (Auto) 6.4 Eos % (Auto) 5.5 H Baso % (Auto) 1.0 Lymph # (Auto) 2.6 [place] # (Auto) 0.4 Eos # (Auto) 0.4 Baso # (Auto) 0.1 Abs Immat Gran (auto) 0.01 Absolute Neuts (auto) 3.3 Absolute Nucleated RBC 0.000 Nucleated RBC % (auto) 0.0 Sodium 140 Potassium 4.6 Chloride 107 Carbon Dioxide 26 Anion Gap 12 BUN 16 Creatinine 0.80 Estim Creat Clear Calc 100.6 Estimated GFR > 60 Random Glucose 107 Calcium 9.1 Total Bilirubin 0.2 AST 21 ALT 25 Alkaline Phosphatase 65 Total Protein 7.6 Albumin 4.2 Medications Medications Current Medications Acetaminophen (Acetaminophen 325 Mg Tablet) 650 mg PO Q6H PRN PRN Reason: Headache/Pain, Scale 1-10 Last Admin: 06/15/24 09:18 Dose: 650 mg Al Hydroxide/Mg Hydroxide (Magnesium Hydrox/Alum Hydrox 30 Ml Oral.Susp) 30 ml PO Q6H PRN PRN Reason: Heartburn/Nausea Last Admin: 06/07/24 15:21 Dose: 30 ml Clonazepam (Clonazepam 1 Mg Tablet) 1 mg PO TID@0900,1300,1800 [facility] Last Admin: 06/15/24 13:30 Dose: 1 mg Clonidine HCl (Clonidine Hcl 0.1 Mg Tablet) 0.1 mg PO TID PRN; Protocol PRN Reason: anxiety Last Admin: 06/11/24 20:34 Dose: 0.1 mg Docusate Sodium (Docusate Sodium 100 Mg Capsule) 100 mg PO BID PRN PRN Reason: Constipation Last Admin: 06/03/24 14:59 Dose: 100 mg Doxycycline Monohydrate (Doxycycline Monohydrate 100 Mg Capsule) 100 mg PO Q12H [facility] Stop: 06/19/24 09:01 Last Admin: 06/15/24 09:18 Dose: 100 mg Gabapentin (Gabapentin 600 Mg Tablet) 600 mg PO 0900,1300,1800 [facility] Last Admin: 06/15/24 13:30 Dose: 600 mg Gabapentin (Gabapentin 400 Mg Capsule) 800 mg PO BEDTIME [facility] Last Admin: 06/14/24 20:55 Dose: 800 mg Haloperidol (Haloperidol 1 Mg Tablet) 2 mg PO BEDTIME [facility] Last Admin: 06/14/24 20:55 Dose: 2 mg Lactase (Lactase Tablet) 1 tab PO TIDWM [facility] Last Admin: 06/15/24 13:31 Dose: 1 tab Loperamide HCl (Loperamide Hcl 2 Mg Capsule) 4 mg PO Q4H PRN PRN Reason: Diarrhea Last Admin: 06/11/24 21:28 Dose: 4 mg Magnesium Hydroxide (Milk Of Magnesia 30 Ml Oral.Susp) 30 ml PO DAILY PRN PRN Reason: Constipation Last Admin: 06/01/24 19:07 Dose: 30 ml Methadone HCl (Methadone Hcl 20 Mg/2 Ml Oral.Conc) 152 mg PO DAILY@0800 [facility] Last Admin: 06/15/24 08:06 Dose: 152 mg Nicotine (Nicotine 14 Mg Patch.Td24) 14 mg TRANSDERMA DAILY [facility] Last Admin: 06/15/24 09:17 Dose: 14 mg Nicotine Polacrilex (Nicotine Polacrilex 2 Mg Gum) 4 mg BUCCAL Q2H PRN PRN Reason: Nicotine Cravings Last Admin: 06/15/24 15:18 Dose: 4 mg Quetiapine Fumarate (Quetiapine Fumarate 50 Mg Tablet) 50 mg PO TID PRN PRN Reason: severe anxiety Last Admin: 06/11/24 20:35 Dose: 50 mg Quetiapine Fumarate (Quetiapine Fumarate 50 Mg Tablet) 250 mg PO BEDTIME [facility] Last Admin: 06/14/24 20:54 Dose: 250 mg Senna/Docusate Sodium (Sennosides/Docusate Sodium Tablet) 2 tab PO DAILY PRN PRN Reason: Constipation Last Admin: 06/07/24 08:16 Dose: 2 tab Simethicone (Simethicone 80 Mg Tab.Chew) 80 mg PO QIDWMHS PRN PRN Reason: gas Last Admin: 06/14/24 17:22 Dose: 80 mg Topiramate (Topiramate 100 Mg Tablet) 200 mg PO DAILY [facility] Last Admin: 06/15/24 09:17 Dose: 200 mg Trazodone HCl (Trazodone Hcl 100 Mg Tablet) 100 mg PO BEDTIME [facility] Last Admin: 06/14/24 22:01 Dose: Not Given Venlafaxine HCl (Venlafaxine Hcl Er 150 Mg Cap.Er.24h) 150 mg PO DAILY [facility] Last Admin: 06/15/24 09:17 Dose: 150 mg Allergies Allergies Allergy/AdvReac Type Severity Reaction Status Date / Time lamotrigine [From Lamictal] AdvReac Unknown Rash Verified 05/26/24 07:01 Assessment & Plan Assessment & Plan (1) Bipolar disorder with psychotic features: Status: Acute Code(s): F31.9 - Bipolar disorder, unspecified (2) Polysubstance use disorder: Status: Acute Code(s): F19.90 - Other psychoactive substance use, unspecified, uncomplicated Assessment and Plan: * unlikely GI sx are related to opioid withdrawal --patient also does not feel they are experiencing any withdrawal sx * No change to methadone dose * d/c COWS * no follow up from [facility] indicated at this time Plan 06/12: Continue current plan. 06/13 Patient says she is overall doing better and that she is no longer having diarrhea and the flatulence is significantly lower. Denies any AVH or AH and agrees that Haldol has been helping. Patient feels groggy in the morning and wonders if a medication change might help; agrees to lower trazodone 3/6 a.m. sedation still a sx. Decrease Haldol to 2 mg HS Increase Seroqeul to 250 mg HS Decrease Trazodone to 100 mg HS Pt reports overall feeling much improved. 06/15/24: Continue current plan and regime. Reason for continued inpatient stay Substantial Risk for: rapid decompensation Time Spent With Patient Time: Total time managing care of this patient today ____ minutes.
[2024-06-15 20:00] VITALS: BP 128/65; PULSE 74; RESP 18; TEMP 36.4; O2SAT 99
[2024-06-15] MEDS: QUEtiapine Fumarate 50 MG TABLET 250 MG PO (21:00)
[2024-06-15] MEDS: Gabapentin 400 MG CAPSULE 800 MG PO (21:00)
[2024-06-15] MEDS: HaloperidoL 1 MG TABLET 2 MG PO (21:00)
[2024-06-15] MEDS: traZODone HCL 100 MG TABLET PO (21:07)
[2024-06-16] MEDS: methADONE HCl 20 MG/2 ML ORAL.CONC 152 MG PO (07:56)
[2024-06-16 08:00] VITALS: BP 106/70; PULSE 82; TEMP 36.9; O2SAT 98
[2024-06-16] MEDS: Topiramate 100 MG TABLET 200 MG PO (09:20)
[2024-06-16] MEDS: Nicotine 14 MG PATCH.TD24 TRANSDERMA (09:20)
[2024-06-16] MEDS: Lactase TABLET 1 TAB PO ×3 (09:20→17:42)
[2024-06-16] MEDS: clonazePAM 1 MG TABLET PO ×3 (09:20→17:41)
[2024-06-16] MEDS: Venlafaxine HCl ER 150 MG CAP.ER.24H PO (09:20)
[2024-06-16] MEDS: Doxycycline Monohydrate 100 MG CAPSULE PO ×2 (09:20→20:29)
[2024-06-16] MEDS: Nicotine Polacrilex 2 MG GUM 4 MG BUCCAL ×5 (09:24→20:31)
[2024-06-16] MEDS: Gabapentin 600 MG TABLET PO ×3 (09:59→17:42)
--- NOTE | 2024-06-16 10:03 | P.PNPSI_ITS ---
Subjective Subjective Date of Service: 06/16/24 Reason For Visit: SI / Hallucinations Subjective Notes: Conditional Voluntary Interim History: Patient was seen and discussed in rounds today. Records and plans were reviewed. She has been calm, withdrawn and guarded. No behavioral issues. She does have an abscess on her inner thigh and a wound consult was requested. Eating and sleeping adequately. No complaints otherwise. No changes were made Review of Systems Review of Systems Inner thigh abscess Yes all other systems are reviewed and are negative Mental Status Exam Mental Status Exam Patient Appearance: Appropriate Patient Orientation: Person, Place, Time and Situation Level of Consciousness: Alert Patient Behavior: Talkative and Good Eye Contact Mood Description: Apprehensive Affect Description: Apprehensive Patient Cognition Impaired: No Ability to Follow Directions: Good Speech Pattern: Spontaneous Speech Memory Description: Intact Hallucinations: None (denies today) Thought Process: Intact Thought Content: positive for Intact and positive for Suicidal Ideation (denies) Judgement: Good Diagnostics Vital Signs (24Hr): Vital Signs - 24 hr 06/15/24 20:00 Temperature 97.5 F Pulse Rate 74 Respiratory Rate 18 Blood Pressure 128/65 Pulse Oximetry 99 Oxygen Delivery Method Room Air BMI result Body Mass Index 26.3 Labs 06/15/24 11:58 06/15/24 11:58 Labs: Laboratory Results - last 48 hr 06/15/24 11:58 WBC 6.8 RBC 4.22 Hgb 13.0 Hct 38.7 MCV 91.7 MCH 30.8 MCHC 33.6 RDW 13.0 Plt Count 313 MPV 10.3 Immature Gran % (Auto) 0.1 Neut % (Auto) 49.0 Lymph % (Auto) 38.0 [place] % (Auto) 6.4 Eos % (Auto) 5.5 H Baso % (Auto) 1.0 Lymph # (Auto) 2.6 [place] # (Auto) 0.4 Eos # (Auto) 0.4 Baso # (Auto) 0.1 Abs Immat Gran (auto) 0.01 Absolute Neuts (auto) 3.3 Absolute Nucleated RBC 0.000 Nucleated RBC % (auto) 0.0 Sodium 140 Potassium 4.6 Chloride 107 Carbon Dioxide 26 Anion Gap 12 BUN 16 Creatinine 0.80 Estim Creat Clear Calc 100.6 Estimated GFR > 60 Random Glucose 107 Calcium 9.1 Total Bilirubin 0.2 AST 21 ALT 25 Alkaline Phosphatase 65 Total Protein 7.6 Albumin 4.2 Medications Medications Current Medications Acetaminophen (Acetaminophen 325 Mg Tablet) 650 mg PO Q6H PRN PRN Reason: Headache/Pain, Scale 1-10 Last Admin: 06/15/24 21:01 Dose: 650 mg Al Hydroxide/Mg Hydroxide (Magnesium Hydrox/Alum Hydrox 30 Ml Oral.Susp) 30 ml PO Q6H PRN PRN Reason: Heartburn/Nausea Last Admin: 06/07/24 15:21 Dose: 30 ml Clonazepam (Clonazepam 1 Mg Tablet) 1 mg PO TID@0900,1300,1800 [facility] Last Admin: 06/16/24 09:20 Dose: 1 mg Clonidine HCl (Clonidine Hcl 0.1 Mg Tablet) 0.1 mg PO TID PRN; Protocol PRN Reason: anxiety Last Admin: 06/11/24 20:34 Dose: 0.1 mg Docusate Sodium (Docusate Sodium 100 Mg Capsule) 100 mg PO BID PRN PRN Reason: Constipation Last Admin: 06/03/24 14:59 Dose: 100 mg Doxycycline Monohydrate (Doxycycline Monohydrate 100 Mg Capsule) 100 mg PO Q12H [facility] Stop: 06/19/24 09:01 Last Admin: 06/16/24 09:20 Dose: 100 mg Gabapentin (Gabapentin 600 Mg Tablet) 600 mg PO 0900,1300,1800 [facility] Last Admin: 06/16/24 09:59 Dose: 600 mg Gabapentin (Gabapentin 400 Mg Capsule) 800 mg PO BEDTIME [facility] Last Admin: 06/15/24 21:00 Dose: 800 mg Haloperidol (Haloperidol 1 Mg Tablet) 2 mg PO BEDTIME [facility] Last Admin: 06/15/24 21:00 Dose: 2 mg Lactase (Lactase Tablet) 1 tab PO TIDWM [facility] Last Admin: 06/16/24 09:20 Dose: 1 tab Loperamide HCl (Loperamide Hcl 2 Mg Capsule) 4 mg PO Q4H PRN PRN Reason: Diarrhea Last Admin: 06/11/24 21:28 Dose: 4 mg Magnesium Hydroxide (Milk Of Magnesia 30 Ml Oral.Susp) 30 ml PO DAILY PRN PRN Reason: Constipation Last Admin: 06/01/24 19:07 Dose: 30 ml Methadone HCl (Methadone Hcl 20 Mg/2 Ml Oral.Conc) 152 mg PO DAILY@0800 [facility] Last Admin: 06/16/24 07:56 Dose: 152 mg Nicotine (Nicotine 14 Mg Patch.Td24) 14 mg TRANSDERMA DAILY [facility] Last Admin: 06/16/24 09:20 Dose: 14 mg Nicotine Polacrilex (Nicotine Polacrilex 2 Mg Gum) 4 mg BUCCAL Q2H PRN PRN Reason: Nicotine Cravings Last Admin: 06/16/24 09:24 Dose: 4 mg Quetiapine Fumarate (Quetiapine Fumarate 50 Mg Tablet) 50 mg PO TID PRN PRN Reason: severe anxiety Last Admin: 06/11/24 20:35 Dose: 50 mg Quetiapine Fumarate (Quetiapine Fumarate 50 Mg Tablet) 250 mg PO BEDTIME [facility] Last Admin: 06/15/24 21:00 Dose: 250 mg Senna/Docusate Sodium (Sennosides/Docusate Sodium Tablet) 2 tab PO DAILY PRN PRN Reason: Constipation Last Admin: 06/07/24 08:16 Dose: 2 tab Simethicone (Simethicone 80 Mg Tab.Chew) 80 mg PO QIDWMHS PRN PRN Reason: gas Last Admin: 06/14/24 17:22 Dose: 80 mg Topiramate (Topiramate 100 Mg Tablet) 200 mg PO DAILY [facility] Last Admin: 06/16/24 09:20 Dose: 200 mg Trazodone HCl (Trazodone Hcl 100 Mg Tablet) 100 mg PO BEDTIME [facility] Last Admin: 06/15/24 21:07 Dose: 100 mg Venlafaxine HCl (Venlafaxine Hcl Er 150 Mg Cap.Er.24h) 150 mg PO DAILY [facility] Last Admin: 06/16/24 09:20 Dose: 150 mg Allergies Allergies Allergy/AdvReac Type Severity Reaction Status Date / Time lamotrigine [From Lamictal] AdvReac Unknown Rash Verified 05/26/24 07:01 Assessment & Plan Assessment & Plan (1) Bipolar disorder with psychotic features: Status: Acute Code(s): F31.9 - Bipolar disorder, unspecified (2) Polysubstance use disorder: Status: Acute Code(s): F19.90 - Other psychoactive substance use, unspecified, uncomplicated Assessment and Plan: * unlikely GI sx are related to opioid withdrawal --patient also does not feel they are experiencing any withdrawal sx * No change to methadone dose * d/c COWS * no follow up from [facility] indicated at this time Plan 3/4: Continue current plan. 06/13 Patient says she is overall doing better and that she is no longer having diarrhea and the flatulence is significantly lower. Denies any AVH or AH and agrees that Haldol has been helping. Patient feels groggy in the morning and wonders if a medication change might help; agrees to lower trazodone 06/14 a.m. sedation still a sx. Decrease Haldol to 2 mg HS Increase Seroqeul to 250 mg HS Decrease Trazodone to 100 mg HS Pt reports overall feeling much improved. 06/15/24: Continue current plan and regime. 06/16/24: Continue current plans and regimen. Wound consult requested Reason for continued inpatient stay Substantial Risk for: med/psych decompensation Time Spent With Patient Time: Total time managing care of this patient today ____ minutes.
[2024-06-16 13:15] LABS: Influenza A PCR NEGATIVE (Negative); Influenza B PCR NEGATIVE (Negative); Resp Syncy Virus RNA Qual PCR NEGATIVE (Negative); SARS COV2 PCR INHOUSE NEGATIVE (Negative)
--- NOTE | 2024-06-16 14:13 | PM.EVENT ---
Event Note Date of Service: 06/16/24 Event Note: Pt is a 38-year-old female admitted to [facility] with hospitalist consult for worsening right buttock abscess. Pt has already been seen multiple times for this condition. Pt reports last night while showering she ?pulled out? the abscess. Reports removing a semi solid clump with lots of pus-like drainage. No fever, chills. Area is also no longer painful. As pictured below. Consults have now been placed to both wound care and general surgery, and will defer any additional treatment or workup to their suggestions. Pt can continue doxycycline to completion. Time Spent With Patient Time: Total time managing care of this patient today ____ minutes.
[2024-06-16 15:49] VITALS: TEMP 36.9
--- NOTE | 2024-06-16 17:09 | PC.NURSE ---
Letty sat down with TW for a mental status check. During this conversation Letty was making accusations about staff calling her names and making ?fun? of her physical symptoms? such as diarrhea, flatulence and the abscess on her right gluteal fold. Letty also reports one staff calling her ?a crotchless little girl,? ?staff were telling me that I wasn?t going to get my meds, my diaper or anything until I pooped in the hat.? Letty continued to talk about a conversation that started out at the nurses station regarding her request to receive services for women's health such as a pap smear, where it was said at that time that those services, though may make sense because of the locality, cannot be incorporated into this stay, she was told that if it could be done that, it gladly would be done. Letty took this as a disgusting and perverted gesture by staff. Letty was clearly distressed and unable to see that the staff was not and is not intentionally disrespecting her. Letty was provided with the information if she wanted to speak to the human rights officer.
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
[2024-06-16 18:45] VITALS: BP 113/60
[2024-06-16] MEDS: cloNIDine HCL 0.1 MG TABLET PO (18:45)
[2024-06-16] MEDS: traZODone HCL 100 MG TABLET PO (20:30)
[2024-06-16] MEDS: HaloperidoL 1 MG TABLET 2 MG PO (20:30)
[2024-06-16] MEDS: QUEtiapine Fumarate 50 MG TABLET 250 MG PO (20:30)
[2024-06-16] MEDS: Gabapentin 400 MG CAPSULE 800 MG PO (20:30)
[2024-06-16] MEDS: Acetaminophen 325 MG TABLET 650 MG PO (20:31)
[2024-06-17] MEDS: methADONE HCl 20 MG/2 ML ORAL.CONC 152 MG PO (07:49)
[2024-06-17 08:00] VITALS: BP 108/62; PULSE 72; RESP 18; TEMP 36.8; O2SAT 99
--- NOTE | 2024-06-17 08:48 | HO.PSYCHPN ---
Subjective Subjective Date of Service: 06/17/24 Reason For Visit: SI / Hallucinations Subjective Notes: Conditional Voluntary Interim History: Patient was seen and discussed in rounds today. Records and plans were reviewed. She is doing better and is happy that she was seen by surgery for her draining abscess and treatment and care has been ordered. She continues to be paranoid but less delusional. Some periods of lability and irritability. No SI. No changes were made today. Review of Systems Review of Systems Right buttock abscess Yes all other systems are reviewed and are negative Mental Status Exam Mental Status Exam Patient Appearance: Appropriate Patient Orientation: Person, Place, Time and Situation Level of Consciousness: Alert Patient Behavior: Talkative and Good Eye Contact Mood Description: Apprehensive Affect Description: Apprehensive Patient Cognition Impaired: No Ability to Follow Directions: Good Speech Pattern: Spontaneous Speech Memory Description: Intact Hallucinations: None (denies today) Thought Process: Intact Thought Content: positive for Intact and positive for Suicidal Ideation (denies) Judgement: Good Diagnostics Vital Signs (24Hr): Vital Signs - 24 hr 06/16/24 08:00 06/16/24 15:49 06/16/24 18:45 Temperature 98.5 F 98.4 F Pulse Rate 82 Blood Pressure 106/70 113/60 Pulse Oximetry 98 Oxygen Delivery Method Room Air BMI result Body Mass Index 26.3 Labs 06/15/24 11:58 06/15/24 11:58 Labs: Laboratory Results - last 48 hr 06/15/24 06/16/24 11:58 12:22 WBC 6.8 RBC 4.22 Hgb 13.0 Hct 38.7 MCV 91.7 MCH 30.8 MCHC 33.6 RDW 13.0 Plt Count 313 MPV 10.3 Immature Gran % (Auto) 0.1 Neut % (Auto) 49.0 Lymph % (Auto) 38.0 [place] % (Auto) 6.4 Eos % (Auto) 5.5 H Baso % (Auto) 1.0 Lymph # (Auto) 2.6 [place] # (Auto) 0.4 Eos # (Auto) 0.4 Baso # (Auto) 0.1 Abs Immat Gran (auto) 0.01 Absolute Neuts (auto) 3.3 Absolute Nucleated RBC 0.000 Nucleated RBC % (auto) 0.0 Sodium 140 Potassium 4.6 Chloride 107 Carbon Dioxide 26 Anion Gap 12 BUN 16 Creatinine 0.80 Estim Creat Clear Calc 100.6 Estimated GFR > 60 Random Glucose 107 Calcium 9.1 Total Bilirubin 0.2 AST 21 ALT 25 Alkaline Phosphatase 65 Total Protein 7.6 Albumin 4.2 Influenza Type A (PCR) NEGATIVE Influenza Type B (PCR) NEGATIVE RSV RNA Qual (PCR) NEGATIVE SARS-CoV-2 RNA (RT-PCR) NEGATIVE Medications Medications Current Medications Acetaminophen (Acetaminophen 325 Mg Tablet) 650 mg PO Q6H PRN PRN Reason: Headache/Pain, Scale 1-10 Last Admin: 06/16/24 20:31 Dose: 650 mg Al Hydroxide/Mg Hydroxide (Magnesium Hydrox/Alum Hydrox 30 Ml Oral.Susp) 30 ml PO Q6H PRN PRN Reason: Heartburn/Nausea Last Admin: 06/07/24 15:21 Dose: 30 ml Clonazepam (Clonazepam 1 Mg Tablet) 1 mg PO TID@0900,1300,1800 [facility] Last Admin: 06/16/24 17:41 Dose: 1 mg Clonidine HCl (Clonidine Hcl 0.1 Mg Tablet) 0.1 mg PO TID PRN; Protocol PRN Reason: anxiety Last Admin: 06/16/24 18:45 Dose: 0.1 mg Docusate Sodium (Docusate Sodium 100 Mg Capsule) 100 mg PO BID PRN PRN Reason: Constipation Last Admin: 06/03/24 14:59 Dose: 100 mg Doxycycline Monohydrate (Doxycycline Monohydrate 100 Mg Capsule) 100 mg PO Q12H [facility] Stop: 06/19/24 09:01 Last Admin: 06/16/24 20:29 Dose: 100 mg Gabapentin (Gabapentin 600 Mg Tablet) 600 mg PO 0900,1300,1800 [facility] Last Admin: 06/16/24 17:42 Dose: 600 mg Gabapentin (Gabapentin 400 Mg Capsule) 800 mg PO BEDTIME [facility] Last Admin: 06/16/24 20:30 Dose: 800 mg Haloperidol (Haloperidol 1 Mg Tablet) 2 mg PO BEDTIME [facility] Last Admin: 06/16/24 20:30 Dose: 2 mg Lactase (Lactase Tablet) 1 tab PO TIDWM [facility] Last Admin: 06/16/24 17:42 Dose: 1 tab Loperamide HCl (Loperamide Hcl 2 Mg Capsule) 4 mg PO Q4H PRN PRN Reason: Diarrhea Last Admin: 06/11/24 21:28 Dose: 4 mg Magnesium Hydroxide (Milk Of Magnesia 30 Ml Oral.Susp) 30 ml PO DAILY PRN PRN Reason: Constipation Last Admin: 06/01/24 19:07 Dose: 30 ml Methadone HCl (Methadone Hcl 20 Mg/2 Ml Oral.Conc) 152 mg PO DAILY@0800 [facility] Last Admin: 06/17/24 07:49 Dose: 152 mg Nicotine (Nicotine 21 Mg Patch.Td24) 21 mg TRANSDERMA DAILY [facility] Nicotine Polacrilex (Nicotine Polacrilex 2 Mg Gum) 4 mg BUCCAL Q2H PRN PRN Reason: Nicotine Cravings Last Admin: 06/16/24 20:31 Dose: 4 mg Quetiapine Fumarate (Quetiapine Fumarate 50 Mg Tablet) 50 mg PO TID PRN PRN Reason: severe anxiety Last Admin: 06/11/24 20:35 Dose: 50 mg Quetiapine Fumarate (Quetiapine Fumarate 50 Mg Tablet) 250 mg PO BEDTIME [facility] Last Admin: 06/16/24 20:30 Dose: 250 mg Senna/Docusate Sodium (Sennosides/Docusate Sodium Tablet) 2 tab PO DAILY PRN PRN Reason: Constipation Last Admin: 06/07/24 08:16 Dose: 2 tab Simethicone (Simethicone 80 Mg Tab.Chew) 80 mg PO QIDWMHS PRN PRN Reason: gas Last Admin: 06/14/24 17:22 Dose: 80 mg Topiramate (Topiramate 100 Mg Tablet) 200 mg PO DAILY [facility] Last Admin: 06/16/24 09:20 Dose: 200 mg Trazodone HCl (Trazodone Hcl 100 Mg Tablet) 100 mg PO BEDTIME [facility] Last Admin: 06/16/24 20:30 Dose: 100 mg Venlafaxine HCl (Venlafaxine Hcl Er 150 Mg Cap.Er.24h) 150 mg PO DAILY [facility] Last Admin: 06/16/24 09:20 Dose: 150 mg Allergies Allergies Allergy/AdvReac Type Severity Reaction Status Date / Time lamotrigine [From Lamictal] AdvReac Unknown Rash Verified 05/26/24 07:01 Assessment & Plan Assessment & Plan (1) Bipolar disorder with psychotic features: Status: Acute Code(s): F31.9 - Bipolar disorder, unspecified (2) Polysubstance use disorder: Status: Acute Code(s): F19.90 - Other psychoactive substance use, unspecified, uncomplicated Assessment and Plan: unlikely GI sx are related to opioid withdrawal --patient also does not feel they are experiencing any withdrawal sx No change to methadone dose d/c COWS no follow up from [facility] indicated at this time Plan 06/12: Continue current plan. 06/13 Patient says she is overall doing better and that she is no longer having diarrhea and the flatulence is significantly lower. Denies any AVH or AH and agrees that Haldol has been helping. Patient feels groggy in the morning and wonders if a medication change might help; agrees to lower trazodone 06/14 a.m. sedation still a sx. Decrease Haldol to 2 mg HS Increase Seroqeul to 250 mg HS Decrease Trazodone to 100 mg HS Pt reports overall feeling much improved. 06/15/24: Continue current plan and regime. 06/16/24: Continue current plans and regimen. Wound consult requested 06/17: Continue current regimen and plans Reason for continued inpatient stay Substantial Risk for: med/psych decompensation Time Spent With Patient Time: Total time managing care of this patient today ____ minutes.
[2024-06-17] MEDS: Nicotine 21 MG PATCH.TD24 TRANSDERMA (08:55)
[2024-06-17] MEDS: Lactase TABLET 1 TAB PO ×3 (08:56→17:41)
[2024-06-17] MEDS: Gabapentin 600 MG TABLET PO ×3 (08:56→17:41)
[2024-06-17] MEDS: Venlafaxine HCl ER 150 MG CAP.ER.24H PO (08:56)
[2024-06-17] MEDS: Topiramate 100 MG TABLET 200 MG PO (08:56)
[2024-06-17] MEDS: clonazePAM 1 MG TABLET PO ×3 (08:56→17:41)
[2024-06-17] MEDS: Doxycycline Monohydrate 100 MG CAPSULE PO ×2 (08:56→20:43)
[2024-06-17] MEDS: Nicotine Polacrilex 2 MG GUM 4 MG BUCCAL ×5 (08:58→19:35)
[2024-06-17 14:59] VITALS: BP 130/63
[2024-06-17] MEDS: cloNIDine HCL 0.1 MG TABLET PO (14:59)
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
[2024-06-17 19:38] VITALS: BP 130/59; PULSE 69; RESP 16; TEMP 36.4; O2SAT 99
[2024-06-17] MEDS: HaloperidoL 1 MG TABLET 2 MG PO (20:42)
[2024-06-17] MEDS: Gabapentin 400 MG CAPSULE 800 MG PO (20:42)
[2024-06-17] MEDS: traZODone HCL 100 MG TABLET PO (20:43)
[2024-06-17] MEDS: QUEtiapine Fumarate 50 MG TABLET 250 MG PO (20:43)
--- NOTE | 2024-06-18 | ECG_ITS ---
Test Reason : R/O QTc Prolongation, Seroquel use, ?Delirium Blood Pressure : */* mmHG Vent. Rate : 76 BPM Atrial Rate : 76 BPM P-R Int : 140 ms QRS Dur : 90 ms QT Int : 388 ms P-R-T Axes : 63 56 30 degrees QTcB Int : 436 ms Normal sinus rhythm Normal ECG No previous ECGs available Referred By: Sunshine Gonzalez Electronically Signed By: VIN ROJAS
[2024-06-18] MEDS: methADONE HCl 20 MG/2 ML ORAL.CONC 152 MG PO (07:26)
[2024-06-18] MEDS: Nicotine 21 MG PATCH.TD24 TRANSDERMA (07:56)
[2024-06-18] MEDS: Acetaminophen 325 MG TABLET 650 MG PO (07:57)
[2024-06-18] MEDS: Lactase TABLET 1 TAB PO ×3 (07:58→17:01)
[2024-06-18] MEDS: clonazePAM 1 MG TABLET PO ×4 (07:59→20:01)
[2024-06-18] MEDS: Doxycycline Monohydrate 100 MG CAPSULE PO ×2 (07:59→20:01)
[2024-06-18] MEDS: Gabapentin 600 MG TABLET PO ×3 (07:59→17:01)
[2024-06-18 08:00] VITALS: BP 96/59; PULSE 98; RESP 18; TEMP 38.8; O2SAT 98
[2024-06-18] MEDS: Venlafaxine HCl ER 150 MG CAP.ER.24H PO (08:00)
[2024-06-18] MEDS: Topiramate 100 MG TABLET 200 MG PO (08:00)
[2024-06-18] MEDS: Nicotine Polacrilex 2 MG GUM 4 MG BUCCAL ×6 (08:15→22:17)
--- NOTE | 2024-06-18 09:13 | HO.WOUND ---
Wound Consult: Initial 38yr old?female admitted to [facility] on 05/25/24 - See progress notes and H&P for detailed history.? Wound consult placed for Right buttock wound.? Patient currently on Behavioral health unit, chart review reveals patient was seen by Dr. Hand on 06/17/24 and topical recommendations were made. Per Dr. Angel note the plan is as follows. Right upper thigh gluteal crease abscess area which is probably drained and now there is a little bit of a cavity present here. Plan to let her shower and put a little packing of silver alginate and change daily. Patient already on antibiotics as per medical team and plan to continue course with that. Patient can follow up in wound care clinic after being discharged. She understands and agrees with the above plan. Wound not assessed or seen by this engineering writer - will defer topical orders to Dr. Angel however orders will be added to worklist and skin documentation created as this is not currently in place for direct care team to chart against. Recommendations: 1. Right Buttock - Defer to surgery topical orders. Patient able to shower - pat dry. Cleanse and irrigate with NS, Pat dry.? Apply barrier to periwound, lightly pack with Durafiber AG, be sure to leave a wick to easy removal.? Cover with Foam dressing or dry gauze and ABD pad.? Change Daily. Recommend follow up out patient Wound Clinic at [address] [place] [phone] and to call for an appointment at time of discharge. [phone].?
--- NOTE | 2024-06-18 11:01 | P.PNPSI_ITS ---
Subjective Subjective Date of Service: 06/18/24 Reason For Visit: SI / Hallucinations Subjective Notes: Conditional Voluntary Healthcare Proxy: No Guardianship: No Medical Problems Affecting Mental Status: No Interim History: Pt testing positive for flu today with temp and active sx. Care discussed with father who reports pt argued with him over the weekend, telling him she was not being treated well here. We reviewed these issues and meds with pt and father. Will increase Haldol to 3 mg from 2 mg and Klonopin to 1 mg qid from tid for today. Pt acknowledges feeling increasingly mood driven as she is physically having sx of flu. She reports she and her social worker assistant have made a telephone appt for TSS interview for 06/19/24. Medication Compliance: Yes Side effects from medications: No Attending Groups: Intermittent Review of Systems flu Review of Systems Review of Systems flu sx Mental Status Exam Mental Status Exam Patient Appearance: Fatigued Patient Orientation: Person, Place, Time and Situation Level of Consciousness: Alert Patient Behavior: Talkative, Cooperative, Fatigued and Good Eye Contact Mood Description: Flat Affect Description: Flat Patient Cognition Impaired: No Ability to Follow Directions: Good Speech Pattern: Spontaneous Speech Memory Description: Episodic Impaired Hallucinations: None Delusions: Not Present Thought Process: Distracted Thought Content: positive for Suicidal Ideation (denies) Judgement: Good Diagnostics Vital Signs (24Hr): Vital Signs - 24 hr 06/17/24 14:59 06/17/24 19:38 06/18/24 08:00 Temperature 97.5 F 102 F H Pulse Rate 69 98 Respiratory Rate 16 18 Blood Pressure 130/63 130/59 L 96/59 L Pulse Oximetry 99 98 Oxygen Delivery Method Room Air Room Air BMI result Body Mass Index 26.3 Labs 06/15/24 11:58 06/15/24 11:58 Labs: Laboratory Results - last 48 hr 06/16/24 12:22 Influenza Type A (PCR) NEGATIVE Influenza Type B (PCR) NEGATIVE RSV RNA Qual (PCR) NEGATIVE SARS-CoV-2 RNA (RT-PCR) NEGATIVE Medications Medications Current Medications Acetaminophen (Acetaminophen 325 Mg Tablet) 650 mg PO Q6H PRN PRN Reason: Headache/Pain, Scale 1-10 Last Admin: 06/18/24 07:57 Dose: 650 mg Al Hydroxide/Mg Hydroxide (Magnesium Hydrox/Alum Hydrox 30 Ml Oral.Susp) 30 ml PO Q6H PRN PRN Reason: Heartburn/Nausea Last Admin: 06/07/24 15:21 Dose: 30 ml Clonazepam (Clonazepam 1 Mg Tablet) 1 mg PO TID@0900,1300,1800 [facility] Last Admin: 06/18/24 07:59 Dose: 1 mg Clonidine HCl (Clonidine Hcl 0.1 Mg Tablet) 0.1 mg PO TID PRN; Protocol PRN Reason: anxiety Last Admin: 06/17/24 14:59 Dose: 0.1 mg Docusate Sodium (Docusate Sodium 100 Mg Capsule) 100 mg PO BID PRN PRN Reason: Constipation Last Admin: 06/03/24 14:59 Dose: 100 mg Doxycycline Monohydrate (Doxycycline Monohydrate 100 Mg Capsule) 100 mg PO Q12H [facility] Stop: 06/19/24 09:01 Last Admin: 06/18/24 07:59 Dose: 100 mg Gabapentin (Gabapentin 600 Mg Tablet) 600 mg PO 0900,1300,1800 [facility] Last Admin: 06/18/24 07:59 Dose: 600 mg Gabapentin (Gabapentin 400 Mg Capsule) 800 mg PO BEDTIME [facility] Last Admin: 06/17/24 20:42 Dose: 800 mg Guaifenesin/Dextromethorphan (Guaifenesin Dm 200/20/10 Ml 10 Ml Syrup) 10 ml PO Q4H PRN PRN Reason: Cough Haloperidol (Haloperidol 1 Mg Tablet) 2 mg PO BEDTIME [facility] Last Admin: 06/17/24 20:42 Dose: 2 mg Lactase (Lactase Tablet) 1 tab PO TIDWM [facility] Last Admin: 06/18/24 07:58 Dose: 1 tab Loperamide HCl (Loperamide Hcl 2 Mg Capsule) 4 mg PO Q4H PRN PRN Reason: Diarrhea Last Admin: 06/11/24 21:28 Dose: 4 mg Magnesium Hydroxide (Milk Of Magnesia 30 Ml Oral.Susp) 30 ml PO DAILY PRN PRN Reason: Constipation Last Admin: 06/01/24 19:07 Dose: 30 ml Methadone HCl (Methadone Hcl 20 Mg/2 Ml Oral.Conc) 152 mg PO DAILY@0800 [facility] Last Admin: 06/18/24 07:26 Dose: 152 mg Nicotine (Nicotine 21 Mg Patch.Td24) 21 mg TRANSDERMA DAILY [facility] Last Admin: 06/18/24 07:56 Dose: 21 mg Nicotine Polacrilex (Nicotine Polacrilex 2 Mg Gum) 4 mg BUCCAL Q2H PRN PRN Reason: Nicotine Cravings Last Admin: 06/18/24 08:15 Dose: 4 mg Quetiapine Fumarate (Quetiapine Fumarate 50 Mg Tablet) 50 mg PO TID PRN PRN Reason: severe anxiety Last Admin: 06/11/24 20:35 Dose: 50 mg Quetiapine Fumarate (Quetiapine Fumarate 50 Mg Tablet) 250 mg PO BEDTIME [facility] Last Admin: 06/17/24 20:43 Dose: 250 mg Senna/Docusate Sodium (Sennosides/Docusate Sodium Tablet) 2 tab PO DAILY PRN PRN Reason: Constipation Last Admin: 06/07/24 08:16 Dose: 2 tab Simethicone (Simethicone 80 Mg Tab.Chew) 80 mg PO QIDWMHS PRN PRN Reason: gas Last Admin: 06/14/24 17:22 Dose: 80 mg Topiramate (Topiramate 100 Mg Tablet) 200 mg PO DAILY [facility] Last Admin: 06/18/24 08:00 Dose: 200 mg Trazodone HCl (Trazodone Hcl 100 Mg Tablet) 100 mg PO BEDTIME [facility] Last Admin: 06/17/24 20:43 Dose: 100 mg Venlafaxine HCl (Venlafaxine Hcl Er 150 Mg Cap.Er.24h) 150 mg PO DAILY [facility] Last Admin: 06/18/24 08:00 Dose: 150 mg Allergies Allergies Allergy/AdvReac Type Severity Reaction Status Date / Time lamotrigine [From Lamictal] AdvReac Unknown Rash Verified 05/26/24 07:01 Assessment & Plan Assessment & Plan (1) Bipolar disorder with psychotic features: Status: Acute Code(s): F31.9 - Bipolar disorder, unspecified (2) Polysubstance use disorder: Status: Acute Code(s): F19.90 - Other psychoactive substance use, unspecified, uncomplicated Plan 06/18/24: Increase Haldol to 3 mg HS Increase Klonopin to qid for today only. TSS telephone interview on 06/19 per pt report Flu sx mgt Reviewed concerns with pt/father regarding the weekend. They appear to be settled as of this writing. Reason for continued inpatient stay Substantial Risk for: rapid decompensation Time Spent With Patient Time: Total time managing care of this patient today ____ minutes.
[2024-06-18 11:03] LABS: Influenza A PCR POSITIVE (Negative); Influenza B PCR NEGATIVE (Negative); Resp Syncy Virus RNA Qual PCR NEGATIVE (Negative); SARS COV2 PCR INHOUSE NEGATIVE (Negative)
[2024-06-18] MEDS: guaiFENesin DM 200/20/10 ML 10 ML SYRUP PO ×2 (12:05→17:01)
[2024-06-18] MEDS: Ibuprofen 400 MG TABLET PO ×2 (14:47→20:01)
[2024-06-18 20:00] VITALS: BP 122/57; PULSE 88; RESP 16; TEMP 36.7; O2SAT 99
[2024-06-18] MEDS: QUEtiapine Fumarate 50 MG TABLET 250 MG PO (20:00)
[2024-06-18] MEDS: HaloperidoL 1 MG TABLET 3 MG PO (20:01)
[2024-06-18] MEDS: Gabapentin 400 MG CAPSULE 800 MG PO (20:01)
[2024-06-19] MEDS: Nicotine Polacrilex 2 MG GUM 4 MG BUCCAL ×6 (07:11→20:22)
[2024-06-19] MEDS: methADONE HCl 20 MG/2 ML ORAL.CONC 152 MG PO (07:48)
[2024-06-19 08:00] VITALS: BP 129/60; PULSE 103; RESP 16; TEMP 38.6; O2SAT 95
[2024-06-19] MEDS: Nicotine 21 MG PATCH.TD24 TRANSDERMA (09:09)
[2024-06-19] MEDS: clonazePAM 1 MG TABLET PO ×3 (09:10→17:46)
[2024-06-19] MEDS: Gabapentin 600 MG TABLET PO ×3 (09:10→17:21)
[2024-06-19] MEDS: Doxycycline Monohydrate 100 MG CAPSULE PO (09:10)
[2024-06-19] MEDS: Venlafaxine HCl ER 150 MG CAP.ER.24H PO (09:10)
[2024-06-19] MEDS: Topiramate 100 MG TABLET 200 MG PO (09:10)
[2024-06-19] MEDS: Ibuprofen 400 MG TABLET PO ×2 (09:11→14:48)
[2024-06-19] MEDS: Lactase TABLET 1 TAB PO ×3 (09:11→17:21)
--- NOTE | 2024-06-19 09:52 | HO.PSYCHPN ---
Subjective Subjective Date of Service: 06/19/24 Reason For Visit: SI / Hallucinations Subjective Notes: Conditional Voluntary Healthcare Proxy: No Guardianship: No Medical Problems Affecting Mental Status: No Interim History: Pt accepted to [facility] for 06/20/24. She reports being satisfied with this opportunity Review of meds, needs for dressing changes for abscess (along with review with her nurse) Pt reports no sx psychosis, no AH,VH, fear, paranoia, for over a week now . Denies SI,HI Does report lability over the weekend due to physical sx of flu, but I think my mood and symptoms have been in check overall for about a week or two. Medication Compliance: Yes Side effects from medications: No Attending Groups: Intermittent Review of Systems flu sx Review of Systems Review of Systems current flu Mental Status Exam Mental Status Exam Patient Appearance: Fatigued Patient Orientation: Person, Place, Time and Situation Level of Consciousness: Alert Patient Behavior: Talkative, Cooperative, Fatigued and Good Eye Contact Mood Description: Flat Affect Description: Flat Patient Cognition Impaired: No Ability to Follow Directions: Good Speech Pattern: Spontaneous Speech Memory Description: Episodic Impaired Hallucinations: None Delusions: Not Present Thought Process: Distracted Thought Content: positive for Suicidal Ideation (denies) Judgement: Good Diagnostics Vital Signs (24Hr): Vital Signs - 24 hr 06/18/24 20:00 Temperature 98.1 F Pulse Rate 88 Respiratory Rate 16 Blood Pressure 122/57 L Pulse Oximetry 99 Oxygen Delivery Method Room Air BMI result Body Mass Index 26.3 Labs 06/15/24 11:58 06/15/24 11:58 Labs: Laboratory Results - last 48 hr 06/18/24 10:10 Influenza Type A (PCR) POSITIVE A Influenza Type B (PCR) NEGATIVE RSV RNA Qual (PCR) NEGATIVE SARS-CoV-2 RNA (RT-PCR) NEGATIVE Medications Medications Current Medications Acetaminophen (Acetaminophen 325 Mg Tablet) 650 mg PO Q4H PRN PRN Reason: Headache/Pain, Scale 1-10 Al Hydroxide/Mg Hydroxide (Magnesium Hydrox/Alum Hydrox 30 Ml Oral.Susp) 30 ml PO Q6H PRN PRN Reason: Heartburn/Nausea Last Admin: 06/07/24 15:21 Dose: 30 ml Clonazepam (Clonazepam 1 Mg Tablet) 1 mg PO QID [facility] Last Admin: 06/19/24 09:10 Dose: 1 mg Clonidine HCl (Clonidine Hcl 0.1 Mg Tablet) 0.1 mg PO TID PRN; Protocol PRN Reason: anxiety Last Admin: 06/17/24 14:59 Dose: 0.1 mg Docusate Sodium (Docusate Sodium 100 Mg Capsule) 100 mg PO BID PRN PRN Reason: Constipation Last Admin: 06/03/24 14:59 Dose: 100 mg Gabapentin (Gabapentin 600 Mg Tablet) 600 mg PO 0900,1300,1800 [facility] Last Admin: 06/19/24 09:10 Dose: 600 mg Gabapentin (Gabapentin 400 Mg Capsule) 800 mg PO BEDTIME [facility] Last Admin: 06/18/24 20:01 Dose: 800 mg Guaifenesin/Dextromethorphan (Guaifenesin Dm 200/20/10 Ml 10 Ml Syrup) 10 ml PO Q4H PRN PRN Reason: Cough Last Admin: 06/18/24 17:01 Dose: 10 ml Haloperidol (Haloperidol 1 Mg Tablet) 3 mg PO BEDTIME [facility] Last Admin: 06/18/24 20:01 Dose: 3 mg Ibuprofen (Ibuprofen 400 Mg Tablet) 400 mg PO Q4H PRN PRN Reason: flu sx Last Admin: 06/19/24 09:11 Dose: 400 mg Lactase (Lactase Tablet) 1 tab PO TIDWM [facility] Last Admin: 06/19/24 09:11 Dose: 1 tab Loperamide HCl (Loperamide Hcl 2 Mg Capsule) 4 mg PO Q4H PRN PRN Reason: Diarrhea Last Admin: 06/11/24 21:28 Dose: 4 mg Magnesium Hydroxide (Milk Of Magnesia 30 Ml Oral.Susp) 30 ml PO DAILY PRN PRN Reason: Constipation Last Admin: 06/01/24 19:07 Dose: 30 ml Methadone HCl (Methadone Hcl 20 Mg/2 Ml Oral.Conc) 152 mg PO DAILY@0800 [facility] Last Admin: 06/19/24 07:48 Dose: 152 mg Nicotine (Nicotine 21 Mg Patch.Td24) 21 mg TRANSDERMA DAILY [facility] Last Admin: 06/19/24 09:09 Dose: 21 mg Nicotine Polacrilex (Nicotine Polacrilex 2 Mg Gum) 4 mg BUCCAL Q2H PRN PRN Reason: Nicotine Cravings Last Admin: 06/19/24 09:11 Dose: 4 mg Quetiapine Fumarate (Quetiapine Fumarate 50 Mg Tablet) 50 mg PO TID PRN PRN Reason: severe anxiety Last Admin: 06/11/24 20:35 Dose: 50 mg Quetiapine Fumarate (Quetiapine Fumarate 50 Mg Tablet) 250 mg PO BEDTIME [facility] Last Admin: 06/18/24 20:00 Dose: 250 mg Senna/Docusate Sodium (Sennosides/Docusate Sodium Tablet) 2 tab PO DAILY PRN PRN Reason: Constipation Last Admin: 06/07/24 08:16 Dose: 2 tab Simethicone (Simethicone 80 Mg Tab.Chew) 80 mg PO QIDWMHS PRN PRN Reason: gas Last Admin: 06/14/24 17:22 Dose: 80 mg Topiramate (Topiramate 100 Mg Tablet) 200 mg PO DAILY [facility] Last Admin: 06/19/24 09:10 Dose: 200 mg Trazodone HCl (Trazodone Hcl 100 Mg Tablet) 100 mg PO BEDTIME [facility] Last Admin: 06/19/24 02:17 Dose: Not Given Venlafaxine HCl (Venlafaxine Hcl Er 150 Mg Cap.Er.24h) 150 mg PO DAILY [facility] Last Admin: 06/19/24 09:10 Dose: 150 mg Allergies Allergies Allergy/AdvReac Type Severity Reaction Status Date / Time lamotrigine [From Lamictal] AdvReac Unknown Rash Verified 05/26/24 07:01 Assessment & Plan Assessment & Plan (1) Bipolar disorder with psychotic features: Status: Acute Code(s): F31.9 - Bipolar disorder, unspecified (2) Polysubstance use disorder: Status: Acute Code(s): F19.90 - Other psychoactive substance use, unspecified, uncomplicated Plan 06/19/24: Discharge 06/20/24 to [facility]. Reason for continued inpatient stay Substantial Risk for: rapid decompensation Time Spent With Patient Time: Total time managing care of this patient today ____ minutes.
[2024-06-19 20:00] VITALS: BP 111/57; PULSE 69; RESP 16; TEMP 36.4; O2SAT 98
[2024-06-19] MEDS: Gabapentin 400 MG CAPSULE 800 MG PO (20:22)
[2024-06-19] MEDS: HaloperidoL 1 MG TABLET 2 MG PO (20:22)
[2024-06-19] MEDS: QUEtiapine Fumarate 50 MG TABLET 250 MG PO (20:23)
[2024-06-20] MEDS: Nicotine Polacrilex 2 MG GUM 4 MG BUCCAL ×2 (04:09→09:02)
[2024-06-20] MEDS: methADONE HCl 20 MG/2 ML ORAL.CONC 152 MG PO (07:44)
[2024-06-20] MEDS: Lactase TABLET 1 TAB PO (07:56)
[2024-06-20 08:00] VITALS: BP 127/59; PULSE 73; RESP 16; TEMP 36.7; O2SAT 99
[2024-06-20] MEDS: Topiramate 100 MG TABLET 200 MG PO (08:04)
[2024-06-20] MEDS: clonazePAM 1 MG TABLET PO (08:04)
[2024-06-20] MEDS: Gabapentin 600 MG TABLET PO (08:04)
[2024-06-20] MEDS: Venlafaxine HCl ER 150 MG CAP.ER.24H PO (08:04)
[2024-06-20] MEDS: Nicotine 21 MG PATCH.TD24 TRANSDERMA (08:05)
--- NOTE | 2024-06-20 10:00 | P.PNPSI_ITS ---
Subjective Subjective Reason For Visit: SI / Hallucinations Diagnostics Vital Signs (24Hr): Vital Signs - 24 hr 06/19/24 20:00 06/20/24 08:00 Temperature 97.6 F 98.1 F Pulse Rate 69 73 Respiratory Rate 16 16 Blood Pressure 111/57 L 127/59 L Pulse Oximetry 98 99 Oxygen Delivery Method Room Air Room Air BMI result Body Mass Index 26.3 Labs 06/15/24 11:58 06/15/24 11:58 Labs: Laboratory Results - last 48 hr 06/18/24 10:10 Influenza Type A (PCR) POSITIVE A Influenza Type B (PCR) NEGATIVE RSV RNA Qual (PCR) NEGATIVE SARS-CoV-2 RNA (RT-PCR) NEGATIVE Medications Allergies Allergies Allergy/AdvReac Type Severity Reaction Status Date / Time lamotrigine [From Lamictal] AdvReac Unknown Rash Verified 05/26/24 07:01 Assessment & Plan Assessment & Plan (1) Bipolar disorder with psychotic features: Status: Acute Code(s): F31.9 - Bipolar disorder, unspecified (2) Polysubstance use disorder: Status: Acute Code(s): F19.90 - Other psychoactive substance use, unspecified, uncomplicated Plan 06/19/24: Discharge 06/20/24 to [facility]. Time Spent With Patient Time: Total time managing care of this patient today ____ minutes.
--- NOTE | 2024-07-08 08:57 | PM.PSYDC ---
DS: Providers Provider Date of Service: 06/20/24 Date of admission: 05/25/24 23:28 Date of discharge: 06/20/24 Primary care physician: Unknown Physician Admitting clinician: Sunshine Gonzalez Attending physician on admission: Rosendo Chavez Consults: 05/25/24 23:36 Consult to Hospitalist Routine Comment: Consulting Provider: [facility] Hospitalists Reason For Exam: Transfer pt 06/11/24 11:26 Addiction Medicine Provider Routine Consulting Provider: Addiction Covering Reason for consultation: ?need to increase methadone, ?withdrawal sx Has provider been notified: No 06/16/24 03:21 Consult to Wound Care Routine Reason for consultation: Open draining abcess on right inner buttocks with deep hole 06/16/24 10:35 Consult to Hospitalist Routine Comment: Consulting Provider: [facility] Hospitalists Reason For Exam: Large, right buttock abscess. Wound care seen 06/16/24 11:18 Consult to General Surgery Routine Consulting Provider: [facility] General Surgeons Reason for consultation: large right buttock draining abscess Has provider been notified: Yes Attending physician on discharge: Rosendo Chavez Discharging clinician: Sunshine Gonzalez DS: Diagnosis Discharge Diagnosis (1) Bipolar disorder with psychotic features: Status: Acute (2) Polysubstance use disorder: Status: Acute DS: Medications Discharge Medications Home Medications: Home Medications ?Medication ?Instructions ?Recorded ?Confirmed methadone 10 mg/mL oral 152 mg PO DAILY 05/26/24 05/26/24 concentrate (Methadose) Previous Rx's ?Medication ?Instructions ?Recorded acetaminophen 325 mg tablet 650 mg (2 x 325 mg) PO Q4H PRN 06/19/24 Headache/Pain, Scale 1-10 #720 tabs adhesive tape 4 X 10 yard #12 ea 06/19/24 (Medipore Soft Cloth Tape) clonazepam 1 mg tablet (Klonopin) 1 mg PO TID #90 tabs 06/19/24 clonidine HCl 0.1 mg tablet 0.1 mg PO TID PRN anxiety #90 tabs 06/19/24 docusate sodium 100 mg capsule 100 mg PO BID PRN Constipation #60 06/19/24 caps gabapentin 400 mg capsule 800 mg (2 x 400 mg) PO BEDTIME #60 06/19/24 caps gabapentin 600 mg tablet 600 mg PO TID #90 tabs 06/19/24 gauze bandage 4 X 4 (Gauze Pad) #1,200 ea 06/19/24 haloperidol 1 mg tablet 2 mg (2 x 1 mg) PO BEDTIME #30 tabs 06/19/24 hydrocolloid dressing 2 X 2 #200 ea 06/19/24 (Durafiber Dressing) hydrocolloid dressing 4 X 4 #30 ea 06/19/24 (Durafiber Dressing) ibuprofen 400 mg tablet 400 mg PO Q4H PRN flu sx #60 tabs 06/19/24 naloxone 4 mg/actuation nasal 4 mg intranasal Q2M PRN opioid 06/19/24 spray (Narcan) overdose #2 ea nicotine 21 mg/24 hr daily 21 mg transdermal DAILY #30 ea 06/19/24 transdermal patch quetiapine 200 mg tablet (Seroquel) 200 mg PO BEDTIME #30 tabs 06/19/24 quetiapine 50 mg tablet 50 mg PO QD-TID PRN anxiety #90 06/19/24 tabs quetiapine 50 mg tablet (Seroquel) 50 mg PO BEDTIME #30 tabs 06/19/24 topiramate 100 mg tablet 200 mg (2 x 100 mg) PO DAILY #60 06/19/24 tabs trazodone 100 mg tablet 100 mg PO BEDTIME #30 tabs 06/19/24 venlafaxine 150 mg 150 mg PO DAILY #30 caps 06/19/24 capsule,extended release 24 hr nicotine (polacrilex) 4 mg gum 4 mg buccal Q2H #100 ea 06/20/24 haloperidol 1 mg tablet 1 mg PO BEDTIME #30 tabs 07/02/24 Mental Status Exam Mental Status Exam Patient Appearance: Appropriate Patient Orientation: Person, Place, Time and Situation Level of Consciousness: Alert Patient Behavior: Talkative, Cooperative, Fatigued and Good Eye Contact Mood Description: Flat Affect Description: Flat Patient Cognition Impaired: No Ability to Follow Directions: Good Speech Pattern: Spontaneous Speech Memory Description: Episodic Impaired Hallucinations: None Delusions: Not Present Thought Process: Distracted Thought Content: positive for Suicidal Ideation (denies) Judgement: Good Data Data Completed and Pending Completed studies during hospitalization [Text1]: 06/06/24 10:48 Urine clean catch - Clean Catch Midstream Urine Culture - Final No growth. DS: Summary Hospital Course Hospital Course: Admission to adult psychiatry for exacerbation of bipolar disorder with psychosis, SI, polysubstance use disorder and abscess of right buttock. Medications were evaluated and adjusted. Pt was followed by internal medicine, wound care team and surgery for management of the abscess. She was also followed for flu sx during the admission. Addiction medicine was consulted for ongoing treatment to promote sobriety. Methadone was continued. Pt was able to utilize the milieu to strengthen coping skills and to gather support. Pt will discharge to [facility], will follow up with out pt care and has family support for housing when TSS is completed. Status at Discharge Functional status at discharge: independent ambulation Overall status at discharge: patient is progressing back to baseline Time Spent with Patient Time attestation: Total time managing care of this patient today ____ minutes. Time spent: Less than 30 minutes Discharge Plan Discharge Anticipated Discharge Date/Time: 06/20/24 09:00 Patient Disposition: Xfer Inpatient Rehab Fac Discharge Diagnosis: Bipolar Disorder with Psychosis Polysubstance Use Disorder Opiate Use Disorder-Methadone Maintenance Resolving Abscess R thigh/buttock Referrals: Physician,Ce J [Primary Care Provider] - 06/21/24 1:30 pm (Dr Garry Aviles [place], [place] [phone]) Discharge Medications: New clonidine HCl 0.1 mg Tablet 0.1 mg PO TID PRN (Reason: anxiety) Qty: 90 0RF Protocol: Hold for SBP< HOLD for SBP < : 90 acetaminophen 325 mg Tablet 650 mg PO Q4H PRN (Reason: Headache/Pain, Scale 1-10) Qty: 720 0RF nicotine 21 mg/24 hr Patch 24 Hour 21 mg transdermal DAILY Qty: 30 0RF venlafaxine 150 mg Capsule,Extended Release 24hr 150 mg PO DAILY Qty: 30 0RF haloperidol 1 mg Tablet 2 mg PO BEDTIME Qty: 30 0RF trazodone 100 mg Tablet 100 mg PO BEDTIME Qty: 30 0RF ibuprofen 400 mg Tablet 400 mg PO Q4H PRN (Reason: flu sx) Qty: 60 0RF docusate sodium 100 mg Capsule 100 mg PO BID PRN (Reason: Constipation) Qty: 60 0RF topiramate 100 mg Tablet 200 mg PO DAILY Qty: 60 0RF quetiapine [Seroquel] 200 mg tablet 200 mg PO BEDTIME Qty: 30 0RF Rx Instructions: 250 mg at bedtime quetiapine [Seroquel] 50 mg tablet 50 mg PO BEDTIME Qty: 30 0RF Rx Instructions: 250 mg at bedtime naloxone [Narcan] 4 mg/actuation spray,non-aerosol 4 mg intranasal Q2M PRN (Reason: opioid overdose) Qty: 2 0RF Rx Instructions: spray 1 dose into ONE nostril; alternate nostrils w each dose until help arrives clonazepam [Klonopin] 1 mg tablet 1 mg PO TID Qty: 90 0RF Rx Instructions: 0900, 1300, 1700 (DME) Durafiber Dressing 2 X 2 bandage See Rx Instructions .Route Qty: 200 0RF Rx Instructions: As directed (DME) hydrocolloid dressing [Durafiber Dressing] 4 X 4 bandage See Rx Instructions .Route Qty: 30 0RF Rx Instructions: As directed (DME) Medipore Soft Cloth Tape 4 X 10 -yard tape See Rx Instructions .Route Qty: 12 0RF Rx Instructions: As directed (DME) gauze bandage [Gauze Pad] 4 X 4 bandage See Rx Instructions .Route Qty: 1200 0RF Rx Instructions: As directed nicotine (polacrilex) 4 mg gum 4 mg buccal Q2H Qty: 100 0RF haloperidol 1 mg tablet 1 mg PO BEDTIME Qty: 30 0RF Continued methadone [Methadose] 10 mg/mL Concentrate 152 mg PO DAILY gabapentin 600 mg tablet 600 mg PO TID Qty: 90 0RF gabapentin 400 mg capsule 800 mg PO BEDTIME Qty: 60 0RF quetiapine 50 mg tablet 50 mg PO QD-TID PRN (Reason: anxiety) Qty: 90 0RF Discontinued quetiapine 200 mg tablet 200 mg PO BEDTIME Patient Comments: Pt paperwork from [facility] indicates 300mg Seroquel at HS topiramate 200 mg tablet 200 mg PO DAILY Patient Comments: Paperwork from [facility] indicated Topamax 200mg PO daily to start on 05/26/24 venlafaxine 75 mg capsule,extended release 24hr 150 mg PO DAILY Patient Comments: Paperwork from [facility] indicated Venlafaxine XR, 150mg PO daily to start on 05/26/24 clonazepam 1 mg tablet 1 mg PO TID Discharge Orders: Discharge Order (Routine); Ordered 06/20/24 Ordered By: Sunshine Gonzalez Diet: Advance to usual diet Activity on Discharge: As tolerated Stand Alone Forms: Patient Portal Discharge page Print Language: Belarusian Activity Restrictions/Additional Instructions: Topical Wound Care Recommendations Right Buttock - Patient able to shower - pat dry. Cleanse and irrigate with NS, Pat dry.? Apply barrier to periwound, lightly pack with Durafiber AG, be sure to leave a wick to easy removal.? Cover with Foam dressing or dry gauze and ABD pad.? Change Daily. Recommend follow up out patient Wound Clinic at [address] [place] [id number] and to call for an appointment at time of discharge. [phone].? Care Plan Goals: Abstinence from substances Mood and Behavioral Stabilization Health Concerns: Abstinence from substances Mood and Behavioral Stabilization Plan of Treatment: Attend scheduled appointments Take medications as directed Call for follow up appointment with Wound Clinic as noted above. Assessment: Transfer to [facility] No SI,HI,AH,VH No sx of overt sabine or psychosis Discharge Date/Time: 06/20/24 09:45
== END 2024-06-20 09:45 | DRG 753 ==
PROVIDERS: Psychiatry & Neurology Psychiatry; Student in an Organized Health Care Education/Training Program; Admitting Provider Clinical Nurse Specialist Psychiatric/Mental Health, Adult; Visit Provider Clinical Nurse Specialist Psychiatric/Mental Health, Adult
DX: F31.9 Bipolar disorder, unspecified (principal); R45.851 Suicidal ideations; F19.90 Other psychoactive substance use, unspecified, uncomplicated; N76.0 Acute vaginitis; J11.1 Influenza due to unidentified influenza virus with other respiratory manifestations; L02.31 Cutaneous abscess of buttock; F17.210 Nicotine dependence, cigarettes, uncomplicated; F11.20 Opioid dependence, uncomplicated; Z71.6 Tobacco abuse counseling; Z20.822 Contact with and (suspected) exposure to COVID-19; Z79.899 Other long term (current) drug therapy
CPT/HCPCS: 0241U; 36415; 80053; 80061; 81515; 82607; 82746; 83036; 83735; 84439; 84443; 85025; 87086; 87491; 87507; 87591; 93005

== ENCOUNTER → 2024-05-25 23:28 | Outpatient (BNV) | payer MEDICAID, SELFPAY | PROVIDERS: Admitting Provider Clinical Nurse Specialist Psychiatric/Mental Health, Adult; Visit Provider Student in an Organized Health Care Education/Training Program | DX: Z00.8 Encounter for other general examination (principal) | CPT/HCPCS: 99222 ==

== ENCOUNTER → 2024-05-25 23:28 | Outpatient (BNV) | payer MEDICAID, SELFPAY | PROVIDERS: Admitting Provider Clinical Nurse Specialist Psychiatric/Mental Health, Adult; Visit Provider Surgery | DX: L02.91 Cutaneous abscess, unspecified (principal) | CPT/HCPCS: 99221 ==

== ENCOUNTER → 2024-05-25 23:28 | Outpatient (BNV) | payer OTHER, SELFPAY | PROVIDERS: Admitting Provider Clinical Nurse Specialist Psychiatric/Mental Health, Adult; Visit Provider Nurse Practitioner Psychiatric/Mental Health | DX: F19.90 Other psychoactive substance use, unspecified, uncomplicated (principal) | CPT/HCPCS: 99231 ==

== ENCOUNTER → 2024-05-25 23:28 | Outpatient (BNV) | payer OTHER, SELFPAY | PROVIDERS: Admitting Provider Clinical Nurse Specialist Psychiatric/Mental Health, Adult; Visit Provider Clinical Nurse Specialist Psychiatric/Mental Health, Adult | DX: F31.9 Bipolar disorder, unspecified (principal); F19.90 Other psychoactive substance use, unspecified, uncomplicated | CPT/HCPCS: 99231; 99232 ==